=== PATIENT | male | born 1940 | race Hispanic/Latino ===

== ENCOUNTER 2017-06-15 10:42 | Emergency (ER) | payer MEDICARE ==
[~2017-06-15 10:42] MED LIST: ALLO100T PO; AMLO5TAB2 PO; ASPI-1197 PO; ATOR40TA69 PO; CARB1TAB20 PO; CHOL200013 PO; CLOP75TA32 PO; FOLI1TAB61 PO; GABA-529 PO; INSLAN SQ; ISOS60TA4 PO; LISI-613 PO; MECL-111; NEXIUM PO; NITR0.4T SL; OMEP20CA10 PO; PRAV20TA4 PO; RASA0.5T PO; TAMS0.4C32 PO; TORSEMIDE PO; VITA400C19 PO; [UNRECOGNIZED DRUG - MIXTURE] PO; [UNRECOGNIZED DRUG - OTHER]
[2017-06-15] MEDS ORDERED: LIDOCAINE HCL 1% 20 ML VIAL ONE (12:03)
== END 2017-06-15 15:10 | disposition home or self-care (01) ==
LOC: EDH 10:42
DX: S01.81XA Laceration without foreign body of other part of head, initial encounter (principal); S30.810A Abrasion of lower back and pelvis, initial encounter; S40.211A Abrasion of right shoulder, initial encounter; E11.9 Type 2 diabetes mellitus without complications; I10 Essential (primary) hypertension; G20 Parkinson's disease; Z87.891 Personal history of nicotine dependence; Z88.0 Allergy status to penicillin; X58.XXXA Exposure to other specified factors, initial encounter; Y93.89 Activity, other specified; Y92.89 Other specified places as the place of occurrence of the external cause; Y99.8 Other external cause status
CPT/HCPCS: 12052; 70450

== ENCOUNTER → 2018-07-02 | Outpatient (CLI) | payer MEDICARE ==
[~2018-07-02] MED LIST changes: -AMLO5TAB2 PO; +AMLO5TAB9 PO
== END | disposition home or self-care (01) ==
LOC: RAH 12:32
PROVIDERS: ATTEND Orthopaedic Surgery
DX: S46.011A Strain of muscle(s) and tendon(s) of the rotator cuff of right shoulder, initial encounter (principal); M19.011 Primary osteoarthritis, right shoulder; X58.XXXA Exposure to other specified factors, initial encounter; Y93.89 Activity, other specified; Y92.89 Other specified places as the place of occurrence of the external cause; Y99.8 Other external cause status
CPT/HCPCS: 73221

== ENCOUNTER → 2018-09-15 | Outpatient (CLI) | payer MEDICARE | END | disposition home or self-care (01) | LOC: SHCH 12:56 | PROVIDERS: ATTEND Internal Medicine Cardiovascular Disease | DX: I82.811 Embolism and thrombosis of superficial veins of right lower extremity (principal) | CPT/HCPCS: 93971 ==

== ENCOUNTER → 2018-10-17 | Outpatient (CLI) | payer MEDICARE ==
[~2018-10-17] VITALS: Ht 172.7 cm; Wt 84.8 kg
[~2018-10-17] MED LIST changes: +OMEP-50 PO; -OMEP20CA10 PO; +REGADENOSON 0.4 MG/5 ML PF SYG IVP SCH
== END | disposition home or self-care (01) ==
LOC: SHCH 08:43
PROVIDERS: ATTEND Internal Medicine Cardiovascular Disease
DX: I20.9 Angina pectoris, unspecified (principal); R06.00 Dyspnea, unspecified
CPT/HCPCS: 78452; 93017; 96374; A9500 ×2; J2785

== ENCOUNTER 2019-02-07 17:04 | Emergency (ER) | payer MEDICARE ==
[~2019-02-07 17:04] MED LIST changes: -REGADENOSON 0.4 MG/5 ML PF SYG IVP SCH
[2019-02-07] MEDS ORDERED: ONDANSETRON HCL 4 MG/2 ML VIAL ONE (17:18)
[2019-02-07] MEDS ORDERED: METHYLPREDNISOLONE SOD SUCC 125MG/2ML VIAL ONE (17:18)
[2019-02-07] MEDS ORDERED: FAMOTIDINE/PF 20 MG/2 ML VIAL IV ONE (17:19)
[2019-02-07 17:46] LABS: BASOPHILS % (AUTO) 0.8 % (0.0-5.0); EOSINOPHILS % (AUTO) 1.2 % (0.0-8.0); HEMATOCRIT 33.6 % (42-54); LYMPHOCYTES % (AUTO) 37.7 % (21.0-51.0); MEAN CORPUSCULAR HEMOGLOBIN 31.7 pg (27.0-33.0); MEAN CORPUSCULAR HGB CONC 33.6 g/dL (32.0-36.0); MEAN CORPUSCULAR VOLUME 94.1 fL (79-99); MONOCYTES % (AUTO) 8.2 % (3.0-13.0); NEUTROPHILS % (AUTO) 52.1 % (40.0-77.0); PLATELET COUNT (AUTO) 171 K/uL (130-400); RED BLOOD CELL COUNT(AUTO) 3.56 MIL/uL (4.50-6.20); RED CELL DISTRIBUTION WIDTH 14.3 % (11.0-15.5); WHITE BLOOD COUNT (AUTO) 9.1 K/uL (4.8-10.8)
[2019-02-07 17:55] LABS: CREATININE 1.6 mg/dL (0.5-1.5); POTASSIUM 4.4 mmol/L (3.5-5.1)
[2019-02-07 17:59] LABS: INR 1.05 (0.85-1.15); PARTIAL THROMBOPLASTIN TIME 25.5 SEC (26.3-35.5)
[2019-02-07 18:00] LABS: ALBUMIN 3.1 g/dL (3.5-5.0); BILIRUBIN,TOTAL 0.5 mg/dL (0.2-1.0); TOTAL PROTEIN, SERUM 6.6 g/dL (6.0-8.3)
[2019-02-07 18:22] LABS: APPEARANCE,URINE Clear (CLEAR); BILIRUBIN,URINE Negative (NEGATIVE); COLOR,URINE Yellow (YELLOW); GLUCOSE, URINE (UA) Negative (NEGATIVE); KETONES,URINE Negative (NEGATIVE); LEUKOCYTE ESTERASE ,URINE Negative (NEGATIVE); NITRATE,URINE Negative (NEGATIVE); OCCULT BLOOD,URINE Negative (NEGATIVE); PROTEIN,URINE POS 1+ mg/dL (NEGATIVE)
[2019-02-07 18:30] LABS: BACTERIA,URINE Rare /HPF (None Seen); RBC,URINE 0-1 /HPF (0-1); WBC,URINE 0-1 /HPF (0-1)
[2019-02-07 18:31] LABS: SQUAMOUS EPITHELIAL CELL,UR Rare /HPF (0-2)
== END 2019-02-07 20:45 | disposition home or self-care (01) ==
LOC: EDH 17:04
DX: T63.441A Toxic effect of venom of bees, accidental (unintentional), initial encounter (principal); R06.02 Shortness of breath; R13.10 Dysphagia, unspecified; E11.9 Type 2 diabetes mellitus without complications; I10 Essential (primary) hypertension; Z88.0 Allergy status to penicillin; Z91.030 Bee allergy status; Z98.890 Other specified postprocedural states; Y92.89 Other specified places as the place of occurrence of the external cause
CPT/HCPCS: 36415; 71045; 80053; 81001; 82550; 84484 ×2; 85025; 85610; 85730; 93005 ×2; 96374; 96375; 99285; J2405; J2930; J3490

== ENCOUNTER → 2019-02-24 | Outpatient (CLI) | payer MEDICARE ==
[~2019-02-24] MED LIST changes: +OMEP-298 PO; -OMEP-50 PO
== END | disposition home or self-care (01) ==
LOC: SHCH 09:28
PROVIDERS: ATTEND Internal Medicine Cardiovascular Disease
DX: I65.23 Occlusion and stenosis of bilateral carotid arteries (principal)
CPT/HCPCS: 93880

== ENCOUNTER 2020-01-19 05:55 | Day surgery (SDC) | payer MEDICARE ==
[2020-01-14 13:32] LABS: BASOPHILS % (AUTO) 0.6 % (0.0-5.0); HEMATOCRIT 36.9 % (42-54); LYMPHOCYTES % (AUTO) 24.3 % (21.0-51.0); MEAN CORPUSCULAR HEMOGLOBIN 31.5 pg (27.0-33.0); MEAN CORPUSCULAR HGB CONC 33.3 g/dL (32.0-36.0); MEAN CORPUSCULAR VOLUME 94.6 fL (79-99); MONOCYTES % (AUTO) 9.5 % (3.0-13.0); NEUTROPHILS % (AUTO) 64.5 % (40.0-77.0); PLATELET COUNT (AUTO) 202 K/uL (130-400); RED CELL DISTRIBUTION WIDTH 13.2 % (11.0-15.5); WHITE BLOOD COUNT (AUTO) 7.9 K/uL (4.8-10.8)
[2020-01-14 13:37] LABS: APPEARANCE,URINE Clear (CLEAR); BILIRUBIN,URINE Negative (NEGATIVE); COLOR,URINE Yellow (YELLOW); GLUCOSE, URINE (UA) Negative (NEGATIVE); KETONES,URINE Negative (NEGATIVE); LEUKOCYTE ESTERASE ,URINE Negative (NEGATIVE); NITRATE,URINE Negative (NEGATIVE); OCCULT BLOOD,URINE Negative (NEGATIVE); PROTEIN,URINE POS 1+ mg/dL (NEGATIVE)
[2020-01-14 13:54] LABS: BACTERIA,URINE Rare /HPF (None Seen); RBC,URINE 0-1 /HPF (0-1); SQUAMOUS EPITHELIAL CELL,UR Rare /HPF (0-2); WBC,URINE 0-1 /HPF (0-1)
[2020-01-14 13:55] LABS: CREATININE 1.5 mg/dL (0.5-1.5); POTASSIUM 4.2 mmol/L (3.5-5.1)
[2020-01-14 14:12] LABS: INR 0.98 (0.85-1.15); PARTIAL THROMBOPLASTIN TIME 25.2 SEC (26.3-35.5); PROTHROMBIN TIME 10.6 SEC (9.6-11.6)
[2020-01-15 13:33] VITALS: BP 199/65
--- NOTE | 2020-01-18 10:21 | NUR ---
LABS INFORMED Mike ZHOU OF ABNORMAL BUN AND CREATNINE. NO ORDERS RECEIVED. PROCEED WITH PLANNED PROCEDURE.
[~2020-01-19] VITALS: Ht 172.7 cm; Wt 80.6 kg
[2020-01-19] VITALS (14 sets, daily range): BP systolic 117–185; BP diastolic 42–82
[~2020-01-19 05:55] MED LIST changes: +AMLO-258 PO; -AMLO5TAB9 PO; +ASPI-1012 PO; -ASPI-1197 PO; +CALC-866 PO; -CHOL200013 PO; -CLOP75TA32 PO; -FOLI1TAB61 PO; +FOLI1TAB85 PO; -INSLAN SQ; +INSNOV SQ; +ISOS30TA6 PO; -ISOS60TA4 PO; +LANTUS SQ; -LISI-613 PO; +LISI40TA4 PO; +MAGN250T10 PO; -MECL-111; -NEXIUM PO; -NITR0.4T SL; -OMEP-298 PO; +PANT40TA54 PO; -PRAV20TA4 PO; -RASA0.5T PO; +RASA1TAB4 PO; +SODIUM BICARBONATE PO; -TORSEMIDE PO; -VITA400C19 PO; +VITAMIN E PO; -[UNRECOGNIZED DRUG - MIXTURE] PO; -[UNRECOGNIZED DRUG - OTHER]
[2020-01-19] MEDS ORDERED: HEPARIN SODIUM 1000UNIT/ML 10ML VIAL ONE (07:12)
[2020-01-19] MEDS ORDERED: NITROGLYCERIN 2 MG/VIAL VIAL IV ONE (07:12)
[2020-01-19] MEDS ORDERED: IOHEXOL 350 MG/ML 100ML INFUS..BTL IV ONE (07:12)
[2020-01-19] MEDS ORDERED: LIDOCAINE HCL 2% 20ML ONE (07:12)
[2020-01-19] MEDS ORDERED: IOHEXOL-350 50ML VIAL IV ONE (07:12)
[2020-01-19] MEDS ORDERED: SODIUM CHLORIDE 0.9% 1000ML 1,000 ML IV ONE (07:40)
[2020-01-19] MEDS ORDERED: HYDRALAZINE HCL 20 MG/ML VIAL IV PRN (08:15)
[2020-01-19] MEDS ORDERED: NITROGLYCERIN 0.4 MG SL TAB SL PRN (08:15)
[2020-01-19] MEDS ORDERED: SODIUM CHLORIDE 0.9% 1000ML 1,000 ML IV SCH (08:15)
[2020-01-19] MEDS ORDERED: GLUCAGON 1MG KIT 1 MG ML IM PRN (08:15)
[2020-01-19] MEDS ORDERED: DEXTROSE 50%-WATER 50 ML DISP.SYRIN IV PRN (08:15)
--- NOTE | 2020-01-19 09:17 | NUR ---
Pt reported chest pain in the middle of his chest, comparable to what he has been experiencing on and off over the past few weeks. Pt given 0.4 mg Nitroglycerin SL. After 5 minutes, pt reported relief.
[2020-01-19] MEDS ORDERED: INSULIN HUMULIN R 100 UNIT/ML 3ML SQ SCH (11:30)
== END 2020-01-19 14:30 | disposition home or self-care (01) ==
LOC: DAH 05:55
PROVIDERS: ATTEND Internal Medicine Cardiovascular Disease
DX: I25.110 Atherosclerotic heart disease of native coronary artery with unstable angina pectoris (principal); E11.51 Type 2 diabetes mellitus with diabetic peripheral angiopathy without gangrene; N18.30 Chronic kidney disease, stage 3 unspecified; I12.9 Hypertensive chronic kidney disease with stage 1 through stage 4 chronic kidney disease, or unspecified chronic kidney disease; E11.22 Type 2 diabetes mellitus with diabetic chronic kidney disease; K21.9 Gastro-esophageal reflux disease without esophagitis; E78.5 Hyperlipidemia, unspecified; Z95.5 Presence of coronary angioplasty implant and graft; Z98.890 Other specified postprocedural states; Z79.84 Long term (current) use of oral hypoglycemic drugs; Z79.01 Long term (current) use of anticoagulants; Z79.899 Other long term (current) drug therapy
CPT/HCPCS: 36415; 71045; 80048; 81001; 82948 ×2; 85025; 85610; 85730; 93005; 93460; A4215; A4216; A4221; A4222; A4223 ×2; A4606; A4663; C1894 ×3; J1644; J3490 ×2; J7030; Q9965; Q9967

== ENCOUNTER 2020-02-13 19:33 | Inpatient (IN) | payer MEDICARE ==
[~2020-02-13] VITALS: Ht 172.7 cm; Wt 84.5 kg
[2020-02-13] MEDS ORDERED: ASPIRIN 325 MG TABLET ONE (19:43)
[2020-02-13] MEDS ORDERED: ONDANSETRON HCL 4 MG/2 ML VIAL ONE (19:43)
[2020-02-13] MEDS ORDERED: MORPHINE SULFATE 4 MG/1ML SYG ONE (19:44)
[2020-02-13 19:45] LABS: BASOPHILS % (AUTO) 0.6 % (0.0-5.0); EOSINOPHILS % (AUTO) 1.2 % (0.0-8.0); HEMATOCRIT 36.9 % (42-54); LYMPHOCYTES % (AUTO) 33.1 % (21.0-51.0); MEAN CORPUSCULAR HEMOGLOBIN 31.1 pg (27.0-33.0); MEAN CORPUSCULAR HGB CONC 33.1 g/dL (32.0-36.0); MEAN CORPUSCULAR VOLUME 94.1 fL (79-99); MONOCYTES % (AUTO) 9.8 % (3.0-13.0); NEUTROPHILS % (AUTO) 55.2 % (40.0-77.0); PLATELET COUNT (AUTO) 176 K/uL (130-400); RED BLOOD CELL COUNT(AUTO) 3.92 MIL/uL (4.50-6.20); RED CELL DISTRIBUTION WIDTH 13.3 % (11.0-15.5); WHITE BLOOD COUNT (AUTO) 8.3 K/uL (4.8-10.8)
[2020-02-13 19:54] LABS: CREATININE 1.8 mg/dL (0.5-1.5); POTASSIUM 4.4 mmol/L (3.5-5.1)
[2020-02-13 19:56] LABS: INR 0.97 (0.85-1.15); PARTIAL THROMBOPLASTIN TIME 24.5 SEC (26.3-35.5); PROTHROMBIN TIME 10.5 SEC (9.6-11.6)
[2020-02-13 19:58] LABS: ALBUMIN 3.5 g/dL (3.5-5.0); BILIRUBIN,TOTAL 0.3 mg/dL (0.2-1.0); TOTAL PROTEIN, SERUM 7.4 g/dL (6.0-8.3)
[2020-02-13] MEDS ORDERED: NITROGLYCERIN 1GM/1 INCH PACKET TD ONE (21:44)
[2020-02-13] MEDS ORDERED: HYDRALAZINE HCL 20 MG/ML VIAL ONE (22:10)
[2020-02-13 22:30] VITALS: BP 178/57
[2020-02-13] MEDS ORDERED: HYDRALAZINE HCL 20 MG/ML VIAL IV PRN (22:30)
[2020-02-13] MEDS ORDERED: MORPHINE SULFATE 2 MG/ML 1ML SYG IVP PRN (22:30)
[2020-02-13] MEDS ORDERED: AMLO-257 PO (23:08)
[2020-02-13] MEDS ORDERED: INSU100C6 SQ (23:08)
[2020-02-13] MEDS ORDERED: NITR0.4T50 SL (23:08)
[2020-02-13] MEDS ORDERED: MAGOX PO (23:09)
[2020-02-13] MEDS ORDERED: ISOS40TA16 PO (23:09)
[2020-02-13] MEDS ORDERED: MECL-160 PO (23:09)
[2020-02-13] MEDS ORDERED: VITA-164 PO (23:09)
[2020-02-13] MEDS ORDERED: LISI-613 PO (23:09)
[2020-02-13] MEDS ORDERED: DiphenhydrAMINE HCL 50 MG/ML VIAL IV PRN (23:15)
[2020-02-13] MEDS ORDERED: ONDANSETRON HCL 4 MG/2 ML VIAL IV PRN (23:15)
[2020-02-13] MEDS ORDERED: MAG HYDROX/AL HYDROX/SIMETH ES 30 ML SUSP UDCUP PO PRN (23:15)
[2020-02-13] MEDS ORDERED: MECLIZINE HCL 25 MG TABLET PO PRN (23:15)
[2020-02-14 04:00] VITALS: BP 161/47
[2020-02-14] MEDS: INSULIN HUMULIN R 100 UNIT/ML 3ML SQ SCH ×4 (07:30→21:00)
[2020-02-14 08:00] VITALS: BP 162/65
[2020-02-14] MEDS ORDERED: LISINOPRIL 20 MG TABLET PO SCH (09:00)
[2020-02-14] MEDS: RASAGILINE 1 MG PO SCH (09:00)
[2020-02-14] MEDS ORDERED: ASPIRIN 325 MG TABLET PO SCH (09:00)
[2020-02-14] MEDS ORDERED: VITAMIN E 400 UNIT CAPSULE PO SCH (09:00)
[2020-02-14] MEDS ORDERED: MAGNESIUM OXIDE 400 MG TABLET PO SCH (09:00)
[2020-02-14] MEDS ORDERED: AMLODIPINE BESYLATE 5 MG TAB PO SCH (09:00)
[2020-02-14] MEDS: SODIUM BICARBONATE PO SCH ×2 (09:00→21:00)
[2020-02-14] MEDS: **HM** VIT D3 125MCG PO SCH (09:00)
[2020-02-14] MEDS ORDERED: ISOSORBIDE DINITRATE 120 MG PO SCH (09:00)
[2020-02-14] MEDS: NITROGLYCERIN 0.4 MG SL TAB SL PRN ×6 (09:54→18:39)
[2020-02-14] MEDS: GABAPENTIN 100 MG CAPSULE PO SCH ×2 (09:54→21:37)
[2020-02-14] MEDS: FAMOTIDINE 20MG TAB 20 MG TAB PO SCH ×2 (09:55→21:37)
[2020-02-14] MEDS: ALLOPURINOL 100 MG TABLET PO SCH (09:55)
[2020-02-14] MEDS: TAMSULOSIN HCL 0.4 MG CAP.ER.24H PO SCH ×2 (09:55→21:37)
[2020-02-14] MEDS: CARBIDOPA-LEVODOPA 25-100 TAB PO SCH ×4 (09:55→21:37)
[2020-02-14] MEDS ORDERED: CLONIDINE HCL 0.1 MG TABLET PO PRN (12:15)
[2020-02-14 12:21] VITALS: BP 156/53
[2020-02-14 12:35] VITALS: BP 137/60
[2020-02-14 16:00] VITALS: BP 160/64
[2020-02-14] MEDS ORDERED: FUROSEMIDE 10 MG/ML 2ML VIAL IV SCH (16:00)
[2020-02-14] MEDS ORDERED: FUROSEMIDE 10 MG/ML 2ML VIAL ONE (16:20)
[2020-02-14 17:21] LABS: BASOPHILS % (AUTO) 0.4 % (0.0-5.0); EOSINOPHILS % (AUTO) 1.3 % (0.0-8.0); HEMATOCRIT 41.4 % (42-54); LYMPHOCYTES % (AUTO) 24.9 % (21.0-51.0); MEAN CORPUSCULAR HEMOGLOBIN 31.2 pg (27.0-33.0); MEAN CORPUSCULAR HGB CONC 33.1 g/dL (32.0-36.0); MEAN CORPUSCULAR VOLUME 94.3 fL (79-99); MONOCYTES % (AUTO) 10.9 % (3.0-13.0); NEUTROPHILS % (AUTO) 62.4 % (40.0-77.0); PLATELET COUNT (AUTO) 186 K/uL (130-400); RED BLOOD CELL COUNT(AUTO) 4.39 MIL/uL (4.50-6.20); RED CELL DISTRIBUTION WIDTH 13.3 % (11.0-15.5); WHITE BLOOD COUNT (AUTO) 7.8 K/uL (4.8-10.8)
[2020-02-14 17:31] LABS: HEMOGLOBIN A1C 7.9 % (4.0-6.0)
[2020-02-14 17:33] LABS: INR 0.98 (0.85-1.15); PARTIAL THROMBOPLASTIN TIME 25.1 SEC (26.3-35.5); PROTHROMBIN TIME 10.6 SEC (9.6-11.6)
[2020-02-14 17:43] LABS: ALANINE AMINOTRANSFERASE 14 U/L (12-78); ALBUMIN 3.5 g/dL (3.5-5.0); ASPARTATE AMINOTRANSFERASE 28 U/L (10-37); BILIRUBIN,TOTAL 0.8 mg/dL (0.2-1.0); CARBON DIOXIDE 30 mmol/L (21-32); CHLORIDE 103 mmol/L (101-111); CREATINE KINASE, TOTAL 165 U/L (21-232); CREATININE 1.5 mg/dL (0.5-1.5); GLOMERULAR FILTR. RATE CALC 48 mL/min (>60); GLUCOSE,RANDOM 169 mg/dL (70-105); MYOGLOBIN 129 ng/mL (10-92); POTASSIUM 4.8 mmol/L (3.5-5.1); SODIUM SERUM 139 mmol/L (136-145); TOTAL PROTEIN, SERUM 7.6 g/dL (6.0-8.3); TROPONIN I < 0.04 ng/mL (0.00-0.06); UREA NITROGEN, BLOOD 27 mg/dL (7-18)
[2020-02-14 20:00] VITALS: BP 185/61
[2020-02-14] MEDS: ATORVASTATIN CALCIUM 40 MG TABLET PO SCH (21:37)
[2020-02-14] MEDS: Vitamin B Complex/Vit C/Folic Acid PO SCH (21:37)
[2020-02-15] VITALS (44 sets, daily range): BP systolic 62–201; BP diastolic 26–201
[2020-02-15 04:49] LABS: BASOPHILS % (AUTO) 0.5 % (0.0-5.0); EOSINOPHILS % (AUTO) 1.1 % (0.0-8.0); HEMATOCRIT 35.6 % (42-54); LYMPHOCYTES % (AUTO) 17.4 % (21.0-51.0); MEAN CORPUSCULAR HEMOGLOBIN 30.6 pg (27.0-33.0); MEAN CORPUSCULAR HGB CONC 32.6 g/dL (32.0-36.0); MEAN CORPUSCULAR VOLUME 93.9 fL (79-99); NEUTROPHILS % (AUTO) 71.9 % (40.0-77.0); PLATELET COUNT (AUTO) 173 K/uL (130-400); RED BLOOD CELL COUNT(AUTO) 3.79 MIL/uL (4.50-6.20); RED CELL DISTRIBUTION WIDTH 13.3 % (11.0-15.5); WHITE BLOOD COUNT (AUTO) 8.8 K/uL (4.8-10.8)
[2020-02-15 05:19] LABS: ALBUMIN 3.1 g/dL (3.5-5.0); BILIRUBIN,TOTAL 0.6 mg/dL (0.2-1.0); CREATININE 1.9 mg/dL (0.5-1.5); PHOSPHORUS 4.6 mg/dL (2.5-4.9); POTASSIUM 4.9 mmol/L (3.5-5.1); TOTAL PROTEIN, SERUM 6.5 g/dL (6.0-8.3); URIC ACID 4.9 mg/dL (2.6-7.2)
[2020-02-15 05:24] LABS: APPEARANCE,URINE Clear (CLEAR); BILIRUBIN,URINE Negative (NEGATIVE); COLOR,URINE Dark Yellow (YELLOW); GLUCOSE, URINE (UA) Negative (NEGATIVE); KETONES,URINE Trace mg/dL (NEGATIVE); LEUKOCYTE ESTERASE ,URINE Negative (NEGATIVE); NITRATE,URINE Negative (NEGATIVE); OCCULT BLOOD,URINE Negative (NEGATIVE); PROTEIN,URINE POS 1+ mg/dL (NEGATIVE)
[2020-02-15] MEDS: INSULIN HUMULIN R 100 UNIT/ML 3ML SQ SCH (07:21)
[2020-02-15] MEDS ORDERED: NOREPINEPHRINE BITARTRATE 8 MG in DEXTROSE 5%-WATER 250 ML IV PRN (08:00)
[2020-02-15] MEDS ORDERED: NITROGLYCERIN 50 MG/D5% WATER 1 BOT ONE (08:00)
[2020-02-15] MEDS ORDERED: EPINEPHRINE 10 MG in SODIUM CHLORIDE 0.9% 240 ML IV PRN (08:00)
[2020-02-15] MEDS ORDERED: AMINOCAPROIC ACID 15,000 MG in SODIUM CHLORIDE 0.9% 500ML 420 ML IV PRN (08:00)
[2020-02-15] MEDS ORDERED: OCTYL 2-CYANOACRYLATE 1 EACH TP ONE (08:03)
[2020-02-15] MEDS ORDERED: PAPAVERINE HCL 30 MG/ML 2ML VIAL ONE (08:03)
[2020-02-15] MEDS ORDERED: CEFAZOLIN SODIUM 1 GM VIAL ONE (08:03)
[2020-02-15] MEDS ORDERED: ESMOLOL HCL 10 MG/ML 10 ML VIAL ONE ×2 (08:15→10:53)
[2020-02-15] MEDS ORDERED: HEPARIN SODIUM 1000UNIT/ML 10ML VIAL ONE (08:15)
[2020-02-15] MEDS ORDERED: PROTAMINE SULFATE 10 MG/ML 25ML VIAL IV ONE (08:15)
[2020-02-15] MEDS ORDERED: LIDOCAINE PF 2% 5ML ABBOJECT ONE ×2 (08:15→08:17)
[2020-02-15] MEDS ORDERED: SODIUM BICARB 50MEQ 50ML VIAL 100 ML ONE (08:16)
[2020-02-15] MEDS ORDERED: FENTANYL CITRATE PF 50 MCG/1 ML 20ML VIAL IJ ONE (08:16)
[2020-02-15] MEDS ORDERED: PROPOFOL 10 MG/ML 20ML VIAL IV ONE (08:16)
[2020-02-15] MEDS ORDERED: MIDAZOLAM HCL 1 MG/ML 2ML VIAL ONE (08:16)
[2020-02-15] MEDS ORDERED: ROCURONIUM 10MG/1ML SYR 10 MG/ML ML ONE ×2 (08:16→11:47)
[2020-02-15] MEDS ORDERED: AMINOCAPROIC ACID 250 MG/ML 20 ML VIAL ONE (08:16)
[2020-02-15] MEDS ORDERED: NOREPINEPHRINE BITARTRATE 1 MG/1 ML ML IV ONE (08:16)
[2020-02-15] MEDS ORDERED: EPINEPHRINE 1 MG/ML AMPULE ONE (08:16)
[2020-02-15] MEDS: CLINDAMYCIN 900 MG/D5% WATER 50 ML IV SCH ×3 (08:17→20:35)
[2020-02-15] MEDS ORDERED: SUCCINYLCHOLINE CHLORIDE 20 MG/ML 10 ML VIAL ONE (08:17)
[2020-02-15] MEDS ORDERED: ETOMIDATE 2 MG/ML 10 ML VIAL ONE (08:17)
[2020-02-15] MEDS ORDERED: AMIODARONE HCL 50 MG/ML 3 ML VIAL ONE (08:21)
[2020-02-15] MEDS ORDERED: SODIUM CHLORIDE 0.9% 1000ML 1,000 ML IV ONE (08:44)
[2020-02-15] MEDS: RASAGILINE 1 MG PO SCH (09:00)
[2020-02-15] MEDS: CARBIDOPA-LEVODOPA 25-100 TAB PO SCH ×5 (09:00→23:13)
[2020-02-15] MEDS: **HM** VIT D3 125MCG PO SCH (09:00)
[2020-02-15] MEDS: ALLOPURINOL 100 MG TABLET PO SCH (09:00)
[2020-02-15] MEDS ORDERED: CLINDAMYCIN 900 MG/D5% WATER 50 ML IV SCH (09:00)
[2020-02-15] MEDS: TAMSULOSIN HCL 0.4 MG CAP.ER.24H PO SCH ×2 (09:00→20:12)
[2020-02-15 11:04] LABS: ABG BASE EXCESS -3.6 mmol/L (-2.0-3.0); ABG OXYGEN SATURATION 98.7 % (95.0-99.0); ABG PCO2 42 mmHg (35-48)
[2020-02-15] MEDS ORDERED: CLINDAMYCIN PHOSPHATE 150 MG/ML 6ML VIAL ONE (11:08)
[2020-02-15] MEDS ORDERED: VASOPRESSIN 20 UNITS/ML 1ML VIAL ONE (11:44)
[2020-02-15 11:52] LABS: ABG OXYGEN SATURATION 98.7 % (95.0-99.0); ABG PCO2 45 mmHg (35-48)
[2020-02-15] MEDS ORDERED: SODIUM BICARB 50MEQ 50ML VIAL 200 ML ONE (11:52)
[2020-02-15 12:21] LABS: ABG BASE EXCESS 3.5 mmol/L (-2.0-3.0); ABG HCO3 28.1 mmol/L (21.0-28.0); ABG OXYGEN SATURATION 98.5 % (95.0-99.0); ABG PCO2 43 mmHg (35-48)
[2020-02-15] MEDS ORDERED: SODIUM CHLORIDE 0.9% 1000ML 1,000 ML IV SCH (12:45)
[2020-02-15] MEDS ORDERED: NOREPINEPHRINE 4MG/NS 250ML 250 ML IV PRN (12:45)
[2020-02-15] MEDS ORDERED: NITROGLYCERIN 50 MG/D5% WATER 250 BOT IV SCH (12:45)
[2020-02-15] MEDS ORDERED: EPINEPHRINE 2 MG in DEXTROSE 5%-WATER 250 ML IV PRN (12:45)
[2020-02-15] MEDS ORDERED: ACETAMINOPHEN 325 MG TAB PO PRN (12:45)
[2020-02-15] MEDS ORDERED: ACETAMINOPHEN 650 MG SUPPOSITORY RC PRN (12:45)
[2020-02-15] MEDS ORDERED: PROPOFOL 1000 MG/100 ML 100 ML IV PRN (12:45)
[2020-02-15] MEDS ORDERED: MAGNESIUM 2GM PREMIX 50ML 50 ML IV PRN (12:45)
[2020-02-15] MEDS ORDERED: INSULIN REGULAR, HUMAN 3ML 100 UNIT in SODIUM CHLORIDE 0.9% 99 ML IV SCH ×2 (12:45)
[2020-02-15] MEDS ORDERED: SODIUM CHLORIDE 0.9% 10 ML VIAL IVP PRN (12:45)
[2020-02-15] MEDS ORDERED: CALCIUM GLUCONATE 1 GM in SODIUM CHLORIDE 0.9% 50 ML IV PRN (12:45)
[2020-02-15] MEDS ORDERED: POTASSIUM PHOS 15 mMOL+NS250ML 250 ML IV PRN (12:45)
[2020-02-15] MEDS ORDERED: ONDANSETRON HCL 4 MG/2 ML VIAL IV PRN (12:45)
[2020-02-15] MEDS ORDERED: AMINOCAPROIC ACID 15,000 MG in SODIUM CHLORIDE 0.9% 250 ML IV SCH (12:45)
[2020-02-15] MEDS ORDERED: GLUCAGON 1MG KIT 1 MG ML IM PRN (12:45)
[2020-02-15] MEDS ORDERED: DEXTROSE 50%-WATER 50 ML DISP.SYRIN IV PRN (12:45)
[2020-02-15] MEDS ORDERED: ALBUMIN (HUMAN) 5% 250 ML IV PRN (12:45)
[2020-02-15] MEDS ORDERED: ALBUMIN (HUMAN) 5% 500 ML IV ONE (13:11)
[2020-02-15 13:34] LABS: ABG BASE EXCESS -3.3 mmol/L (-2.0-3.0); ABG HCO3 22.1 mmol/L (21.0-28.0); ABG OXYGEN SATURATION 98.5 % (95.0-99.0); ABG PCO2 41 mmHg (35-48)
[2020-02-15] MEDS ORDERED: POTASSIUM CHLORIDE 20MEQ/100ML 200 ML IV ONE (13:36)
[2020-02-15] MEDS ORDERED: INSULIN HUMULIN R 100 UNIT/ML 3ML ONE (13:38)
[2020-02-15 14:26] LABS: HEMATOCRIT 27.4 % (42-54); MEAN CORPUSCULAR HGB CONC 32.1 g/dL (32.0-36.0); MEAN CORPUSCULAR VOLUME 96.5 fL (79-99); RED BLOOD CELL COUNT(AUTO) 2.84 MIL/uL (4.50-6.20); RED CELL DISTRIBUTION WIDTH 13.3 % (11.0-15.5); WHITE BLOOD COUNT (AUTO) 19.4 K/uL (4.8-10.8)
[2020-02-15 14:28] LABS: ABG BASE EXCESS -4.8 mmol/L (-2.0-3.0); ABG HCO3 21.7 mmol/L (21.0-28.0); ABG OXYGEN SATURATION 97.7 % (95.0-99.0); ABG PCO2 46 mmHg (35-48)
[2020-02-15 14:40] LABS: MAGNESIUM 1.7 mg/dL (1.80-2.40); PHOSPHORUS 4.4 mg/dL (2.5-4.9); POTASSIUM 3.7 mmol/L (3.5-5.1)
[2020-02-15 14:41] LABS: INR 1.17 (0.85-1.15); PARTIAL THROMBOPLASTIN TIME 21.2 SEC (26.3-35.5); PROTHROMBIN TIME 12.6 SEC (9.6-11.6)
[2020-02-15 15:07] LABS: ABG OXYGEN SATURATION 84.9 % (95.0-99.0); BASE EXCESS,VENOUS BLOOD GAS 1.6 (-2.0-3.0); HCO3,VENOUS BLOOD GAS 28.8 (21.0-28.0); PCO2,VENOUS BLOOD GAS 56 (35-48); PH,VENOUS BLOOD GAS 7.332 (7.350-7.450)
[2020-02-15] MEDS: SODIUM BICARB 50MEQ 50ML VIAL IV PRN ×3 (15:22→17:49)
[2020-02-15] MEDS: POTASSIUM CHLORIDE 20MEQ/100ML 100 ML IV PRN ×2 (15:28→17:48)
[2020-02-15] MEDS: MORPHINE SULFATE 2 MG/ML 1ML SYG IV PRN ×2 (15:46→17:49)
[2020-02-15 15:51] LABS: ABG BASE EXCESS -1.8 mmol/L (-2.0-3.0); ABG HCO3 23.9 mmol/L (21.0-28.0); ABG OXYGEN SATURATION 97.8 % (95.0-99.0); ABG PCO2 45 mmHg (35-48)
[2020-02-15] MEDS: TRAMADOL HCL 50 MG TABLET PO PRN (17:11)
[2020-02-15 17:33] LABS: ABG BASE EXCESS -1.7 mmol/L (-2.0-3.0); ABG HCO3 24.5 mmol/L (21.0-28.0); ABG OXYGEN SATURATION 98.2 % (95.0-99.0); ABG PCO2 49 mmHg (35-48)
[2020-02-15 18:35] LABS: ABG HCO3 30.1 mmol/L (21.0-28.0); ABG OXYGEN SATURATION 97.8 % (95.0-99.0); ABG PCO2 47 mmHg (35-48)
[2020-02-15] MEDS: SODIUM CHLORIDE 0.9% 500ML 500 ML IV SCH (19:10)
[2020-02-15] MEDS ORDERED: CLINDAMYCIN 900 MG/D5% WATER 50 ML IV ONE (19:13)
[2020-02-15] MEDS ORDERED: FAMOTIDINE/PF 20 MG/2 ML VIAL IV ONE (19:15)
[2020-02-15] MEDS: ATORVASTATIN CALCIUM 40 MG TABLET PO SCH (19:26)
[2020-02-15] MEDS: ACETAMINOPHEN 325 MG TAB PO PRN (19:27)
[2020-02-15 19:40] LABS: ABG BASE EXCESS 2.6 mmol/L (-2.0-3.0); ABG OXYGEN SATURATION 97.6 % (95.0-99.0); ABG PCO2 47 mmHg (35-48)
[2020-02-15] MEDS: Vitamin B Complex/Vit C/Folic Acid PO SCH (20:06)
[2020-02-15] MEDS: MORPHINE SULFATE 2 MG/ML 1ML SYG IVP PRN (20:08)
[2020-02-15] MEDS ORDERED: PHARMACY COMMUNICATION MISC SCH ×2 (20:45)
[2020-02-15] MEDS ORDERED: FAMOTIDINE/PF 20 MG/2 ML VIAL IV SCH (21:00)
[2020-02-15 21:06] LABS: MAGNESIUM 2.3 mg/dL (1.80-2.40); POTASSIUM 4.2 mmol/L (3.5-5.1)
[2020-02-15 21:33] LABS: ABG BASE EXCESS 10.2 mmol/L (-2.0-3.0); ABG HCO3 35.4 mmol/L (21.0-28.0); ABG OXYGEN SATURATION 97.5 % (95.0-99.0); ABG PCO2 52 mmHg (35-48)
[2020-02-15] MEDS ORDERED: ALBUMIN (HUMAN) 5% 250 ML IV ONE (21:42)
[2020-02-15 22:39] LABS: ABG BASE EXCESS 5.1 mmol/L (-2.0-3.0); ABG HCO3 28.5 mmol/L (21.0-28.0); ABG OXYGEN SATURATION 97.6 % (95.0-99.0); ABG PCO2 37 mmHg (35-48)
[2020-02-16] VITALS (44 sets, daily range): BP systolic 105–190; BP diastolic 25–71
[2020-02-16] MEDS: MORPHINE SULFATE 2 MG/ML 1ML SYG IVP PRN (01:30)
[2020-02-16 04:18] LABS: ABG BASE EXCESS 5.1 mmol/L (-2.0-3.0); ABG HCO3 26.7 mmol/L (21.0-28.0); ABG OXYGEN SATURATION 97.2 % (95.0-99.0); ABG PCO2 29 mmHg (35-48)
[2020-02-16 04:30] LABS: HEMATOCRIT 25.4 % (42-54); MEAN CORPUSCULAR HEMOGLOBIN 31.3 pg (27.0-33.0); MEAN CORPUSCULAR HGB CONC 33.9 g/dL (32.0-36.0); MEAN CORPUSCULAR VOLUME 92.4 fL (79-99); RED BLOOD CELL COUNT(AUTO) 2.75 MIL/uL (4.50-6.20); RED CELL DISTRIBUTION WIDTH 13.8 % (11.0-15.5); WHITE BLOOD COUNT (AUTO) 9.9 K/uL (4.8-10.8)
[2020-02-16 04:42] LABS: MAGNESIUM 2.1 mg/dL (1.80-2.40); PHOSPHORUS 2.2 mg/dL (2.5-4.9); POTASSIUM 4.2 mmol/L (3.5-5.1)
[2020-02-16 04:43] LABS: INR 1.06 (0.85-1.15); PARTIAL THROMBOPLASTIN TIME 25.2 SEC (26.3-35.5); PROTHROMBIN TIME 11.4 SEC (9.6-11.6)
[2020-02-16] MEDS: CLINDAMYCIN 900 MG/D5% WATER 50 ML IV SCH ×2 (04:45→12:34)
[2020-02-16] MEDS ORDERED: HYDRALAZINE HCL 20 MG/ML VIAL IM PRN (08:15)
[2020-02-16 08:41] LABS: ABG HCO3 28.5 mmol/L (21.0-28.0); ABG OXYGEN SATURATION 97.8 % (95.0-99.0); ABG PCO2 33 mmHg (35-48)
[2020-02-16] MEDS: TAMSULOSIN HCL 0.4 MG CAP.ER.24H PO SCH ×2 (09:52→20:34)
[2020-02-16] MEDS: ALLOPURINOL 100 MG TABLET PO SCH (09:52)
[2020-02-16] MEDS: METOPROLOL TARTRATE 25 MG TAB PO SCH ×2 (09:52→20:18)
[2020-02-16] MEDS: ASPIRIN 325MG EC TAB 325 MG TABLET.DR PO SCH (09:53)
[2020-02-16] MEDS: RASAGILINE 1 MG PO SCH (09:54)
[2020-02-16] MEDS: **HM** VIT D3 125MCG PO SCH (09:55)
[2020-02-16] MEDS: CARBIDOPA-LEVODOPA 25-100 TAB PO SCH ×4 (10:05→20:34)
[2020-02-16] MEDS: TRAMADOL HCL 50 MG TABLET PO PRN ×2 (17:41→23:51)
[2020-02-16] MEDS ORDERED: PHARMACY COMMUNICATION MISC SCH (19:30)
[2020-02-16] MEDS: Vitamin B Complex/Vit C/Folic Acid PO SCH (20:34)
[2020-02-16] MEDS: ATORVASTATIN CALCIUM 40 MG TABLET PO SCH (20:34)
[2020-02-16] MEDS: ACETAMINOPHEN 325 MG TAB PO PRN (20:35)
[2020-02-16] MEDS: SODIUM CHLORIDE 0.9% 500ML 500 ML IV SCH (22:36)
[2020-02-17] VITALS (22 sets, daily range): BP systolic 113–165; BP diastolic 37–101
[2020-02-17] MEDS: ACETAMINOPHEN 325 MG TAB PO PRN (04:27)
[2020-02-17 04:43] LABS: BASOPHILS % (AUTO) 0.2 % (0.0-5.0); EOSINOPHILS % (AUTO) 0.1 % (0.0-8.0); HEMATOCRIT 28.1 % (42-54); LYMPHOCYTES % (AUTO) 8.4 % (21.0-51.0); MEAN CORPUSCULAR HEMOGLOBIN 31.4 pg (27.0-33.0); MEAN CORPUSCULAR HGB CONC 32.4 g/dL (32.0-36.0); MEAN CORPUSCULAR VOLUME 96.9 fL (79-99); MONOCYTES % (AUTO) 7.8 % (3.0-13.0); NEUTROPHILS % (AUTO) 82.8 % (40.0-77.0); PLATELET COUNT (AUTO) 103 K/uL (130-400); RED CELL DISTRIBUTION WIDTH 14.2 % (11.0-15.5); WHITE BLOOD COUNT (AUTO) 15.2 K/uL (4.8-10.8)
[2020-02-17 04:54] LABS: CREATININE 2.2 mg/dL (0.5-1.5); PHOSPHORUS 5.3 mg/dL (2.5-4.9); POTASSIUM 4.4 mmol/L (3.5-5.1)
[2020-02-17] MEDS: CARBIDOPA-LEVODOPA 25-100 TAB PO SCH ×4 (08:41→21:30)
[2020-02-17] MEDS: METOPROLOL TARTRATE 25 MG TAB PO SCH ×2 (08:42→21:30)
[2020-02-17] MEDS: TAMSULOSIN HCL 0.4 MG CAP.ER.24H PO SCH ×2 (08:42→21:30)
[2020-02-17] MEDS: FAMOTIDINE 20MG TAB 20 MG TAB PO SCH (08:42)
[2020-02-17] MEDS: FUROSEMIDE 20 MG TABLET PO SCH ×2 (08:42→16:12)
[2020-02-17] MEDS: ALLOPURINOL 100 MG TABLET PO SCH (08:43)
[2020-02-17] MEDS: ASPIRIN 325MG EC TAB 325 MG TABLET.DR PO SCH (08:43)
[2020-02-17] MEDS: ENOXAPARIN SODIUM 30 MG/0.3 ML SQ SCH (08:44)
[2020-02-17] MEDS: TRAMADOL HCL 50 MG TABLET PO PRN (08:46)
[2020-02-17] MEDS: RASAGILINE 1 MG PO SCH (12:22)
[2020-02-17] MEDS: **HM** VIT D3 125MCG PO SCH (12:23)
[2020-02-17] MEDS: ATORVASTATIN CALCIUM 40 MG TABLET PO SCH (21:30)
[2020-02-17] MEDS: Vitamin B Complex/Vit C/Folic Acid PO SCH (21:30)
[2020-02-18] VITALS (7 sets, daily range): BP systolic 123–155; BP diastolic 57–76
[2020-02-18 06:11] LABS: BASOPHILS % (AUTO) 0.2 % (0.0-5.0); EOSINOPHILS % (AUTO) 0.1 % (0.0-8.0); HEMATOCRIT 28.1 % (42-54); LYMPHOCYTES % (AUTO) 10.9 % (21.0-51.0); MEAN CORPUSCULAR HEMOGLOBIN 31.1 pg (27.0-33.0); MEAN CORPUSCULAR HGB CONC 32.7 g/dL (32.0-36.0); MEAN CORPUSCULAR VOLUME 94.9 fL (79-99); MONOCYTES % (AUTO) 6.8 % (3.0-13.0); NEUTROPHILS % (AUTO) 81.6 % (40.0-77.0); PLATELET COUNT (AUTO) 110 K/uL (130-400); RED BLOOD CELL COUNT(AUTO) 2.96 MIL/uL (4.50-6.20); RED CELL DISTRIBUTION WIDTH 13.5 % (11.0-15.5); WHITE BLOOD COUNT (AUTO) 13.7 K/uL (4.8-10.8)
[2020-02-18 06:18] LABS: CREATININE 2.3 mg/dL (0.5-1.5); POTASSIUM 4.8 mmol/L (3.5-5.1)
[2020-02-18] MEDS: RASAGILINE 1 MG PO SCH (09:00)
[2020-02-18] MEDS: **HM** VIT D3 125MCG PO SCH (09:00)
[2020-02-18] MEDS: ASPIRIN 325MG EC TAB 325 MG TABLET.DR PO SCH (09:36)
[2020-02-18] MEDS: TAMSULOSIN HCL 0.4 MG CAP.ER.24H PO SCH ×2 (09:36→21:38)
[2020-02-18] MEDS: ALLOPURINOL 100 MG TABLET PO SCH (09:37)
[2020-02-18] MEDS: AMLODIPINE BESYLATE 5 MG TAB PO SCH (09:37)
[2020-02-18] MEDS: CARBIDOPA-LEVODOPA 25-100 TAB PO SCH ×4 (09:37→21:38)
[2020-02-18] MEDS: FAMOTIDINE 20MG TAB 20 MG TAB PO SCH (09:37)
[2020-02-18] MEDS: FUROSEMIDE 20 MG TABLET PO SCH ×2 (09:37→16:59)
[2020-02-18] MEDS: METOPROLOL TARTRATE 25 MG TAB PO SCH ×2 (09:37→21:38)
[2020-02-18] MEDS: ENOXAPARIN SODIUM 30 MG/0.3 ML SQ SCH (09:38)
[2020-02-18] MEDS: LACTULOSE 20 GM/30 ML UDCUP PO PRN (15:35)
[2020-02-18] MEDS ORDERED: AMIODARONE HCL 360 MG in DEXTROSE 5%-WATER 200 ML IV SCH (19:00)
[2020-02-18] MEDS ORDERED: AMIODARONE HCL 900 MG in DEXTROSE 5%-WATER 500 ML IV SCH (19:00)
[2020-02-18] MEDS ORDERED: AMIODARONE HCL 150 MG in DEXTROSE 5%-WATER 100 ML IV SCH (19:00)
[2020-02-18] MEDS: ATORVASTATIN CALCIUM 40 MG TABLET PO SCH (21:38)
[2020-02-18] MEDS: Vitamin B Complex/Vit C/Folic Acid PO SCH (21:38)
[2020-02-19] VITALS (7 sets, daily range): BP systolic 106–134; BP diastolic 43–53
[2020-02-19] MEDS ORDERED: AMIODARONE HCL 450 MG in DEXTROSE 5%-WATER 250 ML IV SCH (01:30)
[2020-02-19 05:51] LABS: BASOPHILS % (AUTO) 0.3 % (0.0-5.0); EOSINOPHILS % (AUTO) 0.7 % (0.0-8.0); HEMATOCRIT 26.6 % (42-54); LYMPHOCYTES % (AUTO) 13.3 % (21.0-51.0); MEAN CORPUSCULAR HEMOGLOBIN 31.2 pg (27.0-33.0); MEAN CORPUSCULAR HGB CONC 33.5 g/dL (32.0-36.0); MEAN CORPUSCULAR VOLUME 93.3 fL (79-99); NEUTROPHILS % (AUTO) 77.2 % (40.0-77.0); PLATELET COUNT (AUTO) 142 K/uL (130-400); RED BLOOD CELL COUNT(AUTO) 2.85 MIL/uL (4.50-6.20); RED CELL DISTRIBUTION WIDTH 13.4 % (11.0-15.5); WHITE BLOOD COUNT (AUTO) 11.8 K/uL (4.8-10.8)
[2020-02-19 06:01] LABS: CREATININE 2.1 mg/dL (0.5-1.5); PHOSPHORUS 3.6 mg/dL (2.5-4.9); POTASSIUM 4.3 mmol/L (3.5-5.1)
[2020-02-19] MEDS: METOPROLOL TARTRATE 25 MG TAB PO SCH (07:30)
[2020-02-19] MEDS: TAMSULOSIN HCL 0.4 MG CAP.ER.24H PO SCH ×2 (08:59→20:44)
[2020-02-19] MEDS: ASPIRIN 325MG EC TAB 325 MG TABLET.DR PO SCH (08:59)
[2020-02-19] MEDS: FAMOTIDINE 20MG TAB 20 MG TAB PO SCH (08:59)
[2020-02-19] MEDS: CARBIDOPA-LEVODOPA 25-100 TAB PO SCH ×4 (08:59→20:44)
[2020-02-19] MEDS: FUROSEMIDE 20 MG TABLET PO SCH ×2 (08:59→16:15)
[2020-02-19] MEDS: ALLOPURINOL 100 MG TABLET PO SCH (08:59)
[2020-02-19] MEDS: AMLODIPINE BESYLATE 5 MG TAB PO SCH (08:59)
[2020-02-19] MEDS: **HM** VIT D3 125MCG PO SCH (09:00)
[2020-02-19] MEDS: RASAGILINE 1 MG PO SCH (09:00)
[2020-02-19] MEDS: ENOXAPARIN SODIUM 30 MG/0.3 ML SQ SCH (09:02)
[2020-02-19] MEDS: AMIODARONE HCL 200 MG TABLET PO SCH (20:44)
[2020-02-19] MEDS: Vitamin B Complex/Vit C/Folic Acid PO SCH (20:44)
[2020-02-19] MEDS: ATORVASTATIN CALCIUM 40 MG TABLET PO SCH (20:44)
[2020-02-20 04:09] VITALS: BP 96/45
[2020-02-20 05:35] LABS: HEMATOCRIT 22.8 % (42-54); MEAN CORPUSCULAR HEMOGLOBIN 30.6 pg (27.0-33.0); MEAN CORPUSCULAR HGB CONC 33.3 g/dL (32.0-36.0); MEAN CORPUSCULAR VOLUME 91.9 fL (79-99); RED BLOOD CELL COUNT(AUTO) 2.48 MIL/uL (4.50-6.20); RED CELL DISTRIBUTION WIDTH 13.4 % (11.0-15.5)
[2020-02-20 05:55] LABS: MAGNESIUM 2.1 mg/dL (1.80-2.40); POTASSIUM 3.5 mmol/L (3.5-5.1)
[2020-02-20] MEDS: AMIODARONE HCL 200 MG TABLET PO SCH (06:28)
[2020-02-20] MEDS: LACTULOSE 20 GM/30 ML UDCUP PO PRN (06:28)
[2020-02-20] MEDS: ASPIRIN 325MG EC TAB 325 MG TABLET.DR PO SCH (07:19)
[2020-02-20] MEDS: FAMOTIDINE 20MG TAB 20 MG TAB PO SCH (07:19)
[2020-02-20] MEDS: AMLODIPINE BESYLATE 5 MG TAB PO SCH (07:19)
[2020-02-20] MEDS: TAMSULOSIN HCL 0.4 MG CAP.ER.24H PO SCH (07:19)
[2020-02-20] MEDS: ALLOPURINOL 100 MG TABLET PO SCH (07:19)
[2020-02-20] MEDS: CARBIDOPA-LEVODOPA 25-100 TAB PO SCH ×2 (07:19→13:51)
[2020-02-20] MEDS: FUROSEMIDE 20 MG TABLET PO SCH (07:19)
[2020-02-20] MEDS: ENOXAPARIN SODIUM 30 MG/0.3 ML SQ SCH (07:20)
[2020-02-20] MEDS: RASAGILINE 1 MG PO SCH (07:21)
[2020-02-20] MEDS: **HM** VIT D3 125MCG PO SCH (07:21)
[2020-02-20 08:00] VITALS: BP 108/40
[2020-02-20] MEDS: TRAMADOL HCL 50 MG TABLET PO PRN (10:25)
[2020-02-20 12:01] VITALS: BP 122/54
== END 2020-02-20 15:20 | DRG 235 ==
LOC: EDH 19:33 → OBSVTOIN 21:30 → INTOOBSV 21:30 → EDHIP 21:30 → 3DH 22:03 → 2CH 02-15 10:12 → 4DH 02-17 15:49
PROVIDERS: ADMIT Internal Medicine Pulmonary Disease; ATTEND Internal Medicine Pulmonary Disease
PROC: 02HV33Z Insertion of Infusion Device into Superior Vena Cava, Percutaneous Approach (ICD-10-PCS; 2020-02-15)
PROC: 02100Z9 Bypass Coronary Artery, One Artery from Left Internal Mammary, Open Approach (ICD-10-PCS; principal; 2020-02-15 10:25)
PROC: 021209W Bypass Coronary Artery, Three Arteries from Aorta with Autologous Venous Tissue, Open Approach (ICD-10-PCS; 2020-02-15 10:25)
PROC: 06BQ4ZZ Excision of Left Saphenous Vein, Percutaneous Endoscopic Approach (ICD-10-PCS; 2020-02-15 10:25)
DX: I25.110 Atherosclerotic heart disease of native coronary artery with unstable angina pectoris (principal); I50.33 Acute on chronic diastolic (congestive) heart failure; J95.1 Acute pulmonary insufficiency following thoracic surgery; N17.9 Acute kidney failure, unspecified; E87.1 Hypo-osmolality and hyponatremia; I13.0 Hypertensive heart and chronic kidney disease with heart failure and stage 1 through stage 4 chronic kidney disease, or unspecified chronic kidney disease; N18.30 Chronic kidney disease, stage 3 unspecified; E66.9 Obesity, unspecified; Z20.828 Contact with and (suspected) exposure to other viral communicable diseases; E78.5 Hyperlipidemia, unspecified; E78.00 Pure hypercholesterolemia, unspecified; E11.51 Type 2 diabetes mellitus with diabetic peripheral angiopathy without gangrene; E11.22 Type 2 diabetes mellitus with diabetic chronic kidney disease; D64.9 Anemia, unspecified; G20 Parkinson's disease; I87.2 Venous insufficiency (chronic) (peripheral); C61 Malignant neoplasm of prostate; R00.1 Bradycardia, unspecified; I48.91 Unspecified atrial fibrillation; Y83.2 Surgical operation with anastomosis, bypass or graft as the cause of abnormal reaction of the patient, or of later complication, without mention of misadventure at the time of the procedure; Z88.0 Allergy status to penicillin; Z82.49 Family history of ischemic heart disease and other diseases of the circulatory system; Z83.3 Family history of diabetes mellitus; Z79.899 Other long term (current) drug therapy; Z79.82 Long term (current) use of aspirin; Z79.4 Long term (current) use of insulin; Z68.28 Body mass index [BMI] 28.0-28.9, adult; Z86.018 Personal history of other benign neoplasm
CPT/HCPCS: 36415; 36600; 71045; 80048; 80053; 81003; 82435; 82550; 82803; 82947; 82948; 83036; 83605; 83690; 83735; 83874; 83880; 84100; 84132; 84295; 84484; 84550; 85018; 85025; 85027; 85347; 85610; 85730; 86850; 86900; 86901; 86922; 87426; 93005; 93880; 94002; 94003; 94010; 97039; A7048; G0378; J0171; J0282; J0330; J0360; J0610; J0690; J1644; J1650; J1815; J1940; J2001; J2250; J2270; J2405; J2440; J2704; J2720; J3010; J3475; J3480; J3490; J7030; J7040; J7050; J7060; J7120; P9045; U0003

== ENCOUNTER 2020-03-01 01:25 | Inpatient (IN) | payer MEDICARE ==
[~2020-03-01] VITALS: Ht 172.7 cm; Wt 79.0 kg
[~2020-03-01 01:25] MED LIST changes: +AMLO-257 PO; -AMLO-258 PO; -INSNOV SQ; +INSU100C6 SQ; -ISOS30TA6 PO; +ISOS40TA16 PO; +LISI-613 PO; -LISI40TA4 PO; -MAGN250T10 PO; +MAGOX PO; +MECL-160 PO; +NITR0.4T50 SL; -PANT40TA54 PO; +VITA-164 PO; -VITAMIN E PO
[2020-03-01 01:48] LABS: BASOPHILS % (AUTO) 0.3 % (0.0-5.0); HEMATOCRIT 24.8 % (42-54); LYMPHOCYTES % (AUTO) 8.5 % (21.0-51.0); MEAN CORPUSCULAR HEMOGLOBIN 30.6 pg (27.0-33.0); MEAN CORPUSCULAR HGB CONC 33.5 g/dL (32.0-36.0); MEAN CORPUSCULAR VOLUME 91.5 fL (79-99); MONOCYTES % (AUTO) 8.2 % (3.0-13.0); NEUTROPHILS % (AUTO) 80.5 % (40.0-77.0); PLATELET COUNT (AUTO) 621 K/uL (130-400); RED BLOOD CELL COUNT(AUTO) 2.71 MIL/uL (4.50-6.20); RED CELL DISTRIBUTION WIDTH 14.6 % (11.0-15.5); WHITE BLOOD COUNT (AUTO) 12.8 K/uL (4.8-10.8)
[2020-03-01 01:55] LABS: CREATININE 2.8 mg/dL (0.5-1.5); POTASSIUM 4.6 mmol/L (3.5-5.1)
[2020-03-01 01:58] LABS: ALBUMIN 1.9 g/dL (3.5-5.0); BILIRUBIN,TOTAL 0.7 mg/dL (0.2-1.0); INR 1.09 (0.85-1.15); PARTIAL THROMBOPLASTIN TIME 27.1 SEC (26.3-35.5); PROTHROMBIN TIME 11.7 SEC (9.6-11.6); TOTAL PROTEIN, SERUM 6.3 g/dL (6.0-8.3)
[2020-03-01 03:12] LABS: APPEARANCE,URINE Clear (CLEAR); BILIRUBIN,URINE Negative (NEGATIVE); COLOR,URINE Yellow (YELLOW); GLUCOSE, URINE (UA) Negative (NEGATIVE); KETONES,URINE Negative (NEGATIVE); LEUKOCYTE ESTERASE ,URINE Negative (NEGATIVE); NITRATE,URINE Negative (NEGATIVE); OCCULT BLOOD,URINE Negative (NEGATIVE); PROTEIN,URINE Negative (NEGATIVE)
[2020-03-01 05:05] VITALS: BP 105/45
[2020-03-01] MEDS ORDERED: ACETAMINOPHEN 325 MG TAB PO PRN (05:15)
[2020-03-01] MEDS ORDERED: SODIUM CHLORIDE 0.9% 1000ML 1,000 ML IV SCH (05:15)
[2020-03-01] MEDS ORDERED: ONDANSETRON HCL 4 MG/2 ML VIAL IVP PRN (05:15)
[2020-03-01] MEDS ORDERED: ALLO100T PO (05:53)
[2020-03-01] MEDS ORDERED: CALC-322 PO (05:53)
[2020-03-01] MEDS ORDERED: FURO20TA4 PO (05:53)
[2020-03-01] MEDS ORDERED: ATOR40TA71 PO (05:53)
[2020-03-01 06:28] LABS: HEMATOCRIT 24.4 % (42-54); MEAN CORPUSCULAR HGB CONC 32.8 g/dL (32.0-36.0); MEAN CORPUSCULAR VOLUME 91.4 fL (79-99); PLATELET COUNT (AUTO) 605 K/uL (130-400); RED BLOOD CELL COUNT(AUTO) 2.67 MIL/uL (4.50-6.20); RED CELL DISTRIBUTION WIDTH 14.6 % (11.0-15.5); WHITE BLOOD COUNT (AUTO) 12.6 K/uL (4.8-10.8)
[2020-03-01 06:50] LABS: BASOPHILS % (MANUAL) 1 % (0-2); EOSINOPHILS % (MANUAL) 1 % (1-6); LYMPHOCYTES % (MANUAL) 5 % (22-44); MAN.DIFF COMMENT-IMPRESSION MANUAL DIFFERENTIAL; MONOCYTES % (MANUAL) 1 % (2-9); PLATELET MORPHOLOGY COMMENT MARKED INCREASE; SEGMENTED NEUTROPHILS % 92 % (40-70)
[2020-03-01 07:14] LABS: CREATININE 2.6 mg/dL (0.5-1.5); MAGNESIUM 2.2 mg/dL (1.80-2.40); PHOSPHORUS 4.6 mg/dL (2.5-4.9)
[2020-03-01 07:51] LABS: POTASSIUM 4.4 mmol/L (3.5-5.1)
[2020-03-01 08:30] VITALS: BP 122/50
[2020-03-01] MEDS: AMIODARONE HCL 200 MG TABLET PO SCH ×2 (09:00→21:39)
[2020-03-01] MEDS: CARBIDOPA-LEVODOPA 25-100 TAB PO SCH ×4 (09:20→21:39)
[2020-03-01] MEDS: FAMOTIDINE 20MG TAB 20 MG TAB PO SCH (09:20)
[2020-03-01] MEDS ORDERED: VANCOMYCIN PROTOCOL PER PHARMACY IV SCH (10:15)
[2020-03-01 12:15] VITALS: BP 107/66
[2020-03-01 12:16] VITALS: BP 124/55
[2020-03-01] MEDS: VANCOMYCIN 1GM+NS 250ML 250 ML IV SCH (15:18)
[2020-03-01 18:20] LABS: SPECIMENTYPE,BODY FLUID PLEURAL
[2020-03-01 18:21] LABS: APPEARANCE BODY FLUID BLOODY (CLEAR); COLOR,BODY FLUID RED (LT YELLOW); TOTAL VOLUME,BODY FLUID 500 mL
[2020-03-01 18:23] LABS: BODY FLUID WBC 107 /cu. mm.
[2020-03-01 18:24] LABS: BODY FLUID RBC 103500 /cu. mm.
[2020-03-01 19:14] VITALS: BP 128/47
[2020-03-01 20:30] LABS: BF LYMPHOCYTE 17 %; BF MONOCYTE 1 %
[2020-03-01] MEDS: TAMSULOSIN HCL 0.4 MG CAP.ER.24H PO SCH (21:39)
[2020-03-01] MEDS: Vitamin B Complex/Vit C/Folic Acid PO SCH (21:39)
[2020-03-02] VITALS (10 sets, daily range): BP systolic 108–137; BP diastolic 43–55
[2020-03-02 06:09] LABS: HEMATOCRIT 24.2 % (42-54); MEAN CORPUSCULAR HEMOGLOBIN 30.1 pg (27.0-33.0); MEAN CORPUSCULAR HGB CONC 33.1 g/dL (32.0-36.0); RED BLOOD CELL COUNT(AUTO) 2.66 MIL/uL (4.50-6.20); RED CELL DISTRIBUTION WIDTH 14.6 % (11.0-15.5); WHITE BLOOD COUNT (AUTO) 11.3 K/uL (4.8-10.8)
[2020-03-02 06:15] LABS: CREATININE 2.2 mg/dL (0.5-1.5); POTASSIUM 4.4 mmol/L (3.5-5.1)
[2020-03-02] MEDS: **HM** VIT D3 125MCG PO SCH (09:00)
[2020-03-02] MEDS: FAMOTIDINE 20MG TAB 20 MG TAB PO SCH (09:03)
[2020-03-02] MEDS: VITAMIN E 400 UNIT CAPSULE PO SCH (09:03)
[2020-03-02] MEDS: AMIODARONE HCL 200 MG TABLET PO SCH ×2 (09:03→21:18)
[2020-03-02] MEDS: CALCIUM CARBONATE 500 MG TABLET PO SCH (09:04)
[2020-03-02] MEDS: CARBIDOPA-LEVODOPA 25-100 TAB PO SCH ×4 (09:04→21:18)
[2020-03-02] MEDS: TAMSULOSIN HCL 0.4 MG CAP.ER.24H PO SCH ×2 (09:04→21:18)
[2020-03-02] MEDS: ATORVASTATIN CALCIUM 40 MG TABLET PO SCH (09:04)
[2020-03-02] MEDS: VANCOMYCIN 1GM+NS 250ML 250 ML IV SCH (10:44)
[2020-03-02] MEDS ORDERED: MORPHINE SULFATE 2 MG/ML 1ML SYG ONE (12:18)
[2020-03-02 13:17] LABS: TROPONIN I 0.11 ng/mL (0.00-0.06)
[2020-03-02] MEDS ORDERED: MORPHINE SULFATE 2 MG/ML 1ML SYG IVP ONE (13:30)
[2020-03-02] MEDS: MEROPENEM 1 GM VIAL IVP SCH (14:01)
[2020-03-02] MEDS: FUROSEMIDE 20 MG TABLET PO SCH (16:39)
[2020-03-02 20:56] LABS: TROPONIN I 5.58 ng/mL (0.00-0.06)
[2020-03-02] MEDS: Vitamin B Complex/Vit C/Folic Acid PO SCH (21:18)
[2020-03-02] MEDS: METOPROLOL TARTRATE 25 MG TAB PO SCH (21:19)
[2020-03-03] VITALS (7 sets, daily range): BP systolic 102–147; BP diastolic 45–67
[2020-03-03 00:40] LABS: TROPONIN I 8.01 ng/mL (0.00-0.06)
[2020-03-03] MEDS: MEROPENEM 1 GM VIAL IVP SCH ×3 (01:13→23:19)
[2020-03-03 05:27] LABS: CREATININE 2.8 mg/dL (0.5-1.5); POTASSIUM 4.8 mmol/L (3.5-5.1)
[2020-03-03] MEDS: METOPROLOL TARTRATE 25 MG TAB PO SCH ×2 (07:40→20:56)
[2020-03-03] MEDS: AMIODARONE HCL 200 MG TABLET PO SCH ×2 (07:40→20:56)
[2020-03-03] MEDS: ASPIRIN 325MG EC TAB 325 MG TABLET.DR PO SCH (07:40)
[2020-03-03] MEDS: **HM** VIT D3 125MCG PO SCH (09:00)
[2020-03-03] MEDS: VITAMIN E 400 UNIT CAPSULE PO SCH (10:09)
[2020-03-03] MEDS: CALCIUM CARBONATE 500 MG TABLET PO SCH (10:09)
[2020-03-03] MEDS: FAMOTIDINE 20MG TAB 20 MG TAB PO SCH (10:09)
[2020-03-03] MEDS: FUROSEMIDE 20 MG TABLET PO SCH (10:10)
[2020-03-03] MEDS: CARBIDOPA-LEVODOPA 25-100 TAB PO SCH ×4 (10:10→20:56)
[2020-03-03] MEDS: TAMSULOSIN HCL 0.4 MG CAP.ER.24H PO SCH ×2 (10:10→20:55)
[2020-03-03] MEDS: ATORVASTATIN CALCIUM 40 MG TABLET PO SCH (10:10)
[2020-03-03] MEDS: VANCOMYCIN 1GM+NS 250ML 250 ML IV SCH (10:11)
[2020-03-03 10:37] LABS: TROPONIN I 12.27 ng/mL (0.00-0.06)
[2020-03-03] MEDS: INSULIN HUMULIN R 100 UNIT/ML 3ML SQ SCH ×3 (13:03→20:54)
[2020-03-03] MEDS: LACTULOSE 20 GM/30 ML UDCUP PO PRN (17:33)
[2020-03-03] MEDS: Vitamin B Complex/Vit C/Folic Acid PO SCH (20:56)
[2020-03-03 21:32] LABS: TROPONIN I 12.9 ng/mL (0.00-0.06)
[2020-03-04 03:14] VITALS: BP 116/45
[2020-03-04 05:05] LABS: BASOPHILS % (AUTO) 0.5 % (0.0-5.0); EOSINOPHILS % (AUTO) 2.3 % (0.0-8.0); HEMATOCRIT 24.9 % (42-54); LYMPHOCYTES % (AUTO) 7.8 % (21.0-51.0); MEAN CORPUSCULAR HEMOGLOBIN 29.9 pg (27.0-33.0); MEAN CORPUSCULAR HGB CONC 32.9 g/dL (32.0-36.0); MEAN CORPUSCULAR VOLUME 90.9 fL (79-99); NEUTROPHILS % (AUTO) 78.8 % (40.0-77.0); PLATELET COUNT (AUTO) 609 K/uL (130-400); RED BLOOD CELL COUNT(AUTO) 2.74 MIL/uL (4.50-6.20); RED CELL DISTRIBUTION WIDTH 14.5 % (11.0-15.5); WHITE BLOOD COUNT (AUTO) 11.8 K/uL (4.8-10.8)
[2020-03-04 05:20] LABS: ALBUMIN 1.5 g/dL (3.5-5.0); BILIRUBIN,TOTAL 0.6 mg/dL (0.2-1.0); POTASSIUM 4.9 mmol/L (3.5-5.1); TOTAL PROTEIN, SERUM 5.7 g/dL (6.0-8.3)
[2020-03-04] MEDS: INSULIN HUMULIN R 100 UNIT/ML 3ML SQ SCH ×4 (06:10→22:31)
[2020-03-04 08:44] VITALS: BP 137/57
[2020-03-04] MEDS: **HM** VIT D3 125MCG PO SCH (09:00)
[2020-03-04] MEDS: AMIODARONE HCL 200 MG TABLET PO SCH ×2 (10:01→21:00)
[2020-03-04] MEDS: METOPROLOL TARTRATE 25 MG TAB PO SCH ×2 (10:02→21:00)
[2020-03-04] MEDS: TAMSULOSIN HCL 0.4 MG CAP.ER.24H PO SCH ×2 (10:02→22:20)
[2020-03-04] MEDS: FAMOTIDINE 20MG TAB 20 MG TAB PO SCH (10:02)
[2020-03-04] MEDS: ASPIRIN 325MG EC TAB 325 MG TABLET.DR PO SCH (10:02)
[2020-03-04] MEDS: VITAMIN E 400 UNIT CAPSULE PO SCH (10:02)
[2020-03-04] MEDS: CALCIUM CARBONATE 500 MG TABLET PO SCH (10:02)
[2020-03-04] MEDS: FUROSEMIDE 20 MG TABLET PO SCH (10:03)
[2020-03-04] MEDS: CARBIDOPA-LEVODOPA 25-100 TAB PO SCH ×4 (10:03→22:20)
[2020-03-04] MEDS ORDERED: MIDODRINE HCL 5 MG TABLET PO PRN (12:45)
[2020-03-04] MEDS: MEROPENEM 1 GM VIAL IVP SCH ×2 (12:47→23:44)
[2020-03-04] MEDS: ATORVASTATIN CALCIUM 40 MG TABLET PO SCH (12:48)
[2020-03-04] MEDS: VANCOMYCIN 1GM+NS 250ML 250 ML IV SCH (12:49)
[2020-03-04 14:53] VITALS: BP 105/43
[2020-03-04 16:00] VITALS: BP 110/42
[2020-03-04 19:49] VITALS: BP 109/42
[2020-03-04] MEDS: Vitamin B Complex/Vit C/Folic Acid PO SCH (22:20)
[2020-03-04 23:53] VITALS: BP 113/49
[2020-03-05 03:32] VITALS: BP 104/42
[2020-03-05 05:53] LABS: HEMATOCRIT 25.6 % (42-54); MEAN CORPUSCULAR HEMOGLOBIN 29.2 pg (27.0-33.0); MEAN CORPUSCULAR VOLUME 91.1 fL (79-99); RED BLOOD CELL COUNT(AUTO) 2.81 MIL/uL (4.50-6.20); RED CELL DISTRIBUTION WIDTH 14.6 % (11.0-15.5); WHITE BLOOD COUNT (AUTO) 10.7 K/uL (4.8-10.8)
[2020-03-05] MEDS: INSULIN HUMULIN R 100 UNIT/ML 3ML SQ SCH ×4 (06:11→22:21)
[2020-03-05 06:14] LABS: ALBUMIN 1.5 g/dL (3.5-5.0); BILIRUBIN,TOTAL 0.6 mg/dL (0.2-1.0); CREATININE 1.9 mg/dL (0.5-1.5); POTASSIUM 4.5 mmol/L (3.5-5.1); TOTAL PROTEIN, SERUM 5.6 g/dL (6.0-8.3)
[2020-03-05 07:56] VITALS: BP 128/55
[2020-03-05] MEDS: **HM** VIT D3 125MCG PO SCH (09:00)
[2020-03-05] MEDS: ATORVASTATIN CALCIUM 40 MG TABLET PO SCH (09:36)
[2020-03-05] MEDS: TAMSULOSIN HCL 0.4 MG CAP.ER.24H PO SCH ×2 (09:36→22:19)
[2020-03-05] MEDS: CARBIDOPA-LEVODOPA 25-100 TAB PO SCH ×4 (09:36→22:20)
[2020-03-05] MEDS: FUROSEMIDE 20 MG TABLET PO SCH ×2 (09:37→22:20)
[2020-03-05] MEDS: FAMOTIDINE 20MG TAB 20 MG TAB PO SCH (09:37)
[2020-03-05] MEDS: METOPROLOL TARTRATE 25 MG TAB PO SCH ×2 (09:37→21:00)
[2020-03-05] MEDS: AMIODARONE HCL 200 MG TABLET PO SCH ×2 (09:37→22:20)
[2020-03-05] MEDS: ASPIRIN 325MG EC TAB 325 MG TABLET.DR PO SCH (09:37)
[2020-03-05] MEDS: VANCOMYCIN 1GM+NS 250ML 250 ML IV SCH (09:38)
[2020-03-05] MEDS: VITAMIN E 400 UNIT CAPSULE PO SCH (09:38)
[2020-03-05] MEDS: CALCIUM CARBONATE 500 MG TABLET PO SCH (10:03)
[2020-03-05 11:41] VITALS: BP 131/59
[2020-03-05] MEDS: MEROPENEM 1 GM VIAL IVP SCH ×2 (12:34→23:56)
[2020-03-05 16:00] VITALS: BP 116/48
[2020-03-05 19:53] VITALS: BP 119/48
[2020-03-05] MEDS: Vitamin B Complex/Vit C/Folic Acid PO SCH (22:19)
[2020-03-05 23:30] VITALS: BP 129/54
[2020-03-06 03:43] VITALS: BP 123/50
[2020-03-06 05:27] LABS: HEMATOCRIT 24.6 % (42-54); MEAN CORPUSCULAR HEMOGLOBIN 29.5 pg (27.0-33.0); MEAN CORPUSCULAR HGB CONC 32.5 g/dL (32.0-36.0); MEAN CORPUSCULAR VOLUME 90.8 fL (79-99); RED BLOOD CELL COUNT(AUTO) 2.71 MIL/uL (4.50-6.20); RED CELL DISTRIBUTION WIDTH 14.6 % (11.0-15.5); WHITE BLOOD COUNT (AUTO) 11.2 K/uL (4.8-10.8)
[2020-03-06 05:41] LABS: CREATININE 1.8 mg/dL (0.5-1.5); POTASSIUM 4.4 mmol/L (3.5-5.1)
[2020-03-06] MEDS: INSULIN HUMULIN R 100 UNIT/ML 3ML SQ SCH ×4 (06:47→21:51)
[2020-03-06 07:52] VITALS: BP 135/46
[2020-03-06] MEDS: **HM** VIT D3 125MCG PO SCH (09:00)
[2020-03-06] MEDS ORDERED: RASAGILINE MESYLATE 1 MG PO SCH ×2 (09:00→10:00)
[2020-03-06] MEDS: Rasagiline Mesylate 1 MG PO SCH (10:00)
[2020-03-06] MEDS: ASPIRIN 325MG EC TAB 325 MG TABLET.DR PO SCH (10:10)
[2020-03-06] MEDS: VANCOMYCIN 1GM+NS 250ML 250 ML IV SCH (10:10)
[2020-03-06] MEDS: VITAMIN E 400 UNIT CAPSULE PO SCH (10:11)
[2020-03-06] MEDS: FUROSEMIDE 20 MG TABLET PO SCH ×2 (10:11→23:51)
[2020-03-06] MEDS: FAMOTIDINE 20MG TAB 20 MG TAB PO SCH (10:11)
[2020-03-06] MEDS: METOPROLOL TARTRATE 25 MG TAB PO SCH ×2 (10:11→21:00)
[2020-03-06] MEDS: ATORVASTATIN CALCIUM 40 MG TABLET PO SCH (10:11)
[2020-03-06] MEDS: AMIODARONE HCL 200 MG TABLET PO SCH ×2 (10:11→21:00)
[2020-03-06] MEDS: CALCIUM CARBONATE 500 MG TABLET PO SCH (10:11)
[2020-03-06] MEDS: TAMSULOSIN HCL 0.4 MG CAP.ER.24H PO SCH ×2 (10:11→22:17)
[2020-03-06] MEDS: CARBIDOPA-LEVODOPA 25-100 TAB PO SCH ×4 (10:14→22:17)
[2020-03-06] MEDS ORDERED: PHARMACY COMMUNICATION MISC SCH (11:15)
[2020-03-06] MEDS ORDERED: ALTEPLASE 2 MG/VIAL IVCATH SCH (11:15)
[2020-03-06 11:46] VITALS: BP 111/43
[2020-03-06] MEDS: MEROPENEM 1 GM VIAL IVP SCH ×2 (12:12→23:51)
[2020-03-06] MEDS: LACTULOSE 20 GM/30 ML UDCUP PO PRN (12:18)
[2020-03-06 16:00] VITALS: BP 116/54
[2020-03-06 20:00] VITALS: BP 110/49
[2020-03-06] MEDS: Vitamin B Complex/Vit C/Folic Acid PO SCH (22:17)
[2020-03-07] VITALS: BP 106/48
[2020-03-07] MEDS: NITROGLYCERIN 0.4 MG SL TAB SL PRN ×2 (03:59→04:30)
[2020-03-07 04:00] VITALS: BP 110/45
[2020-03-07 06:36] LABS: BASOPHILS % (AUTO) 0.7 % (0.0-5.0); EOSINOPHILS % (AUTO) 4.5 % (0.0-8.0); HEMATOCRIT 24.9 % (42-54); LYMPHOCYTES % (AUTO) 12.6 % (21.0-51.0); MEAN CORPUSCULAR HEMOGLOBIN 29.2 pg (27.0-33.0); MEAN CORPUSCULAR HGB CONC 32.1 g/dL (32.0-36.0); MEAN CORPUSCULAR VOLUME 90.9 fL (79-99); MONOCYTES % (AUTO) 11.4 % (3.0-13.0); PLATELET COUNT (AUTO) 586 K/uL (130-400); RED BLOOD CELL COUNT(AUTO) 2.74 MIL/uL (4.50-6.20); RED CELL DISTRIBUTION WIDTH 14.4 % (11.0-15.5); WHITE BLOOD COUNT (AUTO) 10.7 K/uL (4.8-10.8)
[2020-03-07] MEDS: INSULIN HUMULIN R 100 UNIT/ML 3ML SQ SCH ×4 (06:37→20:57)
[2020-03-07 06:43] LABS: CREATININE 1.7 mg/dL (0.5-1.5); POTASSIUM 4.2 mmol/L (3.5-5.1)
[2020-03-07 07:00] VITALS: BP 122/52
[2020-03-07] MEDS: CALCIUM CARBONATE 500 MG TABLET PO SCH (09:41)
[2020-03-07] MEDS: VITAMIN E 400 UNIT CAPSULE PO SCH (09:41)
[2020-03-07] MEDS: FAMOTIDINE 20MG TAB 20 MG TAB PO SCH (09:42)
[2020-03-07] MEDS: ATORVASTATIN CALCIUM 40 MG TABLET PO SCH (09:42)
[2020-03-07] MEDS: FUROSEMIDE 20 MG TABLET PO SCH ×2 (09:42→20:56)
[2020-03-07] MEDS: TAMSULOSIN HCL 0.4 MG CAP.ER.24H PO SCH ×2 (09:42→20:56)
[2020-03-07] MEDS: CARBIDOPA-LEVODOPA 25-100 TAB PO SCH ×4 (09:42→20:54)
[2020-03-07] MEDS: ASPIRIN 325MG EC TAB 325 MG TABLET.DR PO SCH (09:42)
[2020-03-07] MEDS: AMIODARONE HCL 200 MG TABLET PO SCH ×2 (09:42→20:54)
[2020-03-07] MEDS: METOPROLOL TARTRATE 25 MG TAB PO SCH ×2 (09:42→20:55)
[2020-03-07] MEDS: **HM** VIT D3 125MCG PO SCH (09:49)
[2020-03-07] MEDS: Rasagiline Mesylate 1 MG PO SCH (10:00)
[2020-03-07 11:00] VITALS: BP 98/36
[2020-03-07] MEDS: MEROPENEM 1 GM VIAL IVP SCH ×2 (13:07→23:18)
[2020-03-07] MEDS: VANCOMYCIN 1GM+NS 250ML 250 ML IV SCH (13:08)
[2020-03-07 16:00] VITALS: BP 103/47
[2020-03-07 20:00] VITALS: BP 129/69
[2020-03-07] MEDS: Vitamin B Complex/Vit C/Folic Acid PO SCH (20:55)
[2020-03-08] VITALS: BP 129/57
[2020-03-08 04:00] VITALS: BP 109/47
[2020-03-08 05:28] LABS: HEMATOCRIT 27.7 % (42-54); MEAN CORPUSCULAR HEMOGLOBIN 29.4 pg (27.0-33.0); MEAN CORPUSCULAR HGB CONC 31.8 g/dL (32.0-36.0); MEAN CORPUSCULAR VOLUME 92.6 fL (79-99); RED BLOOD CELL COUNT(AUTO) 2.99 MIL/uL (4.50-6.20); RED CELL DISTRIBUTION WIDTH 14.5 % (11.0-15.5)
[2020-03-08 05:46] LABS: CREATININE 1.8 mg/dL (0.5-1.5); POTASSIUM 4.8 mmol/L (3.5-5.1)
[2020-03-08] MEDS: INSULIN HUMULIN R 100 UNIT/ML 3ML SQ SCH ×3 (06:31→17:18)
[2020-03-08 07:00] VITALS: BP 117/49
[2020-03-08] MEDS: VITAMIN E 400 UNIT CAPSULE PO SCH (08:11)
[2020-03-08] MEDS: AMIODARONE HCL 200 MG TABLET PO SCH (08:12)
[2020-03-08] MEDS: FUROSEMIDE 20 MG TABLET PO SCH (08:12)
[2020-03-08] MEDS: FAMOTIDINE 20MG TAB 20 MG TAB PO SCH (08:12)
[2020-03-08] MEDS: ATORVASTATIN CALCIUM 40 MG TABLET PO SCH (08:12)
[2020-03-08] MEDS: ASPIRIN 325MG EC TAB 325 MG TABLET.DR PO SCH (08:12)
[2020-03-08] MEDS: CALCIUM CARBONATE 500 MG TABLET PO SCH (08:13)
[2020-03-08] MEDS: CARBIDOPA-LEVODOPA 25-100 TAB PO SCH ×3 (08:13→17:18)
[2020-03-08] MEDS: METOPROLOL TARTRATE 25 MG TAB PO SCH (08:13)
[2020-03-08] MEDS: TAMSULOSIN HCL 0.4 MG CAP.ER.24H PO SCH (08:13)
[2020-03-08] MEDS: **HM** VIT D3 125MCG PO SCH (09:00)
[2020-03-08] MEDS: Rasagiline Mesylate 1 MG PO SCH (10:00)
[2020-03-08 11:00] VITALS: BP 116/42
[2020-03-08] MEDS: VANCOMYCIN 1GM+NS 250ML 250 ML IV SCH (13:02)
[2020-03-08] MEDS: MEROPENEM 1 GM VIAL IVP SCH (13:02)
[2020-03-08 16:00] VITALS: BP 105/41
== END 2020-03-08 22:00 | DRG 186 ==
LOC: EDH 01:25 → EDHIP 04:12 → 4CH 05:23
PROVIDERS: ADMIT Internal Medicine; ATTEND Internal Medicine
PROC: 0W9B30Z Drainage of Left Pleural Cavity with Drainage Device, Percutaneous Approach (ICD-10-PCS; principal; 2020-03-01)
DX: J90 Pleural effusion, not elsewhere classified (principal); J96.91 Respiratory failure, unspecified with hypoxia; I21.4 Non-ST elevation (NSTEMI) myocardial infarction; J15.9 Unspecified bacterial pneumonia; N17.9 Acute kidney failure, unspecified; J94.8 Other specified pleural conditions; N18.4 Chronic kidney disease, stage 4 (severe); T81.32XA Disruption of internal operation (surgical) wound, not elsewhere classified, initial encounter; I12.9 Hypertensive chronic kidney disease with stage 1 through stage 4 chronic kidney disease, or unspecified chronic kidney disease; E11.22 Type 2 diabetes mellitus with diabetic chronic kidney disease; E78.5 Hyperlipidemia, unspecified; C61 Malignant neoplasm of prostate; E78.00 Pure hypercholesterolemia, unspecified; E87.70 Fluid overload, unspecified; G20 Parkinson's disease; I25.10 Atherosclerotic heart disease of native coronary artery without angina pectoris; I48.0 Paroxysmal atrial fibrillation; N40.0 Benign prostatic hyperplasia without lower urinary tract symptoms; D63.8 Anemia in other chronic diseases classified elsewhere; Y83.8 Other surgical procedures as the cause of abnormal reaction of the patient, or of later complication, without mention of misadventure at the time of the procedure; Z79.01 Long term (current) use of anticoagulants; Z79.4 Long term (current) use of insulin; Z79.899 Other long term (current) drug therapy; Z95.1 Presence of aortocoronary bypass graft; Z88.0 Allergy status to penicillin; Y92.89 Other specified places as the place of occurrence of the external cause
CPT/HCPCS: 10030; 36415; 71045; 71250; 76942; 78582; 80048; 80053; 80202; 81003; 82550; 82945; 82947; 82948; 83615; 83735; 83874; 83880; 83986; 84100; 84155; 84157; 84484; 85025; 85027; 85378; 85610; 85651; 85730; 87040; 87070; 87071; 87076; 87116; 87205; 87206; 88112; 88305; 89051; 92610; 93005; 93306; 93356; 93970; 97039; A9540; A9558; G0378; J1815; J2185; J2997; J3370

== ENCOUNTER 2020-04-01 17:21 | Inpatient (IN) | payer MEDICARE ==
[~2020-04-01] VITALS: Ht 172.7 cm; Wt 102.1 kg
[~2020-04-01 17:21] MED LIST changes: -ATOR40TA69 PO; +ATOR40TA71 PO; +CALC-322 PO; +FURO20TA4 PO; -GABA-529 PO; -ISOS40TA16 PO; -LISI-613 PO; -MAGOX PO; -SODIUM BICARBONATE PO
[2020-04-01 17:53] LABS: BASOPHILS % (AUTO) 0.1 % (0.0-5.0); EOSINOPHILS % (AUTO) 0.4 % (0.0-8.0); HEMATOCRIT 26.2 % (42-54); LYMPHOCYTES % (AUTO) 32.5 % (21.0-51.0); MEAN CORPUSCULAR HEMOGLOBIN 28.6 pg (27.0-33.0); MEAN CORPUSCULAR HGB CONC 32.1 g/dL (32.0-36.0); MEAN CORPUSCULAR VOLUME 89.1 fL (79-99); MONOCYTES % (AUTO) 12.6 % (3.0-13.0); NEUTROPHILS % (AUTO) 53.8 % (40.0-77.0); NUCLEATED RED BLOOD CELLS 0.7 % (0.0-0.19); PLATELET COUNT (AUTO) 297 K/uL (130-400); RED BLOOD CELL COUNT(AUTO) 2.94 MIL/uL (4.50-6.20); RED CELL DISTRIBUTION WIDTH 16.4 % (11.0-15.5); WHITE BLOOD COUNT (AUTO) 8.6 K/uL (4.8-10.8)
[2020-04-01 18:19] LABS: B-TYPE NATRIURETIC PEPTIDE 862 pg/mL (0-100)
[2020-04-01] MEDS ORDERED: LEVOFLOXACIN 500 MG TABLET ONE (18:19)
[2020-04-01] MEDS ORDERED: DEXAMETHASONE SOD PHOSPHATE 10MG/ML 1ML VIAL ONE (18:19)
[2020-04-01] MEDS ORDERED: AZITHROMYCIN 500MG+NS 250ML 250 ML IV ONE (18:19)
[2020-04-01] MEDS ORDERED: NIFEDIPINE ER 30 MG TAB PO ONE (18:20)
[2020-04-01 18:23] LABS: LACTATE DEHYDROGENASE 266 U/L (81-234)
[2020-04-01 18:35] LABS: ABG BASE EXCESS -5.2 mmol/L (-2.0-3.0); ABG HCO3 19.3 mmol/L (21.0-28.0); ABG OXYGEN SATURATION 96.6 % (95.0-99.0); ABG PCO2 35 mmHg (35-48)
[2020-04-01] MEDS ORDERED: MONTELUKAST SODIUM 10 MG TAB PO ONE (18:45)
[2020-04-01 18:49] LABS: CREATININE 1.6 mg/dL (0.5-1.5); INR 1.13 (0.85-1.15); POTASSIUM 4.2 mmol/L (3.5-5.1)
[2020-04-01 18:50] LABS: PARTIAL THROMBOPLASTIN TIME 26.3 SEC (26.3-35.5)
[2020-04-01 18:53] LABS: ALBUMIN 2.5 g/dL (3.5-5.0); BILIRUBIN,TOTAL 0.8 mg/dL (0.2-1.0); TOTAL PROTEIN, SERUM 6.9 g/dL (6.0-8.3)
[2020-04-01 19:09] LABS: TROPONIN I 0.3 ng/mL (0.00-0.06)
[2020-04-01] MEDS ORDERED: NITROGLYCERIN 1GM OINT 1 INCH/1GM TD ONE (19:21)
[2020-04-01] MEDS ORDERED: ASPIRIN 81MG CHEW TAB ONE (19:21)
[2020-04-01] MEDS ORDERED: NITROGLYCERIN 0.4 MG SL TAB SL PRN (20:45)
[2020-04-01] MEDS ORDERED: MAGNESIUM 2GM PREMIX 50ML 50 ML IV SCH (20:45)
[2020-04-01] MEDS: CEFTRIAXONE 1G VIAL IVP SCH (20:45)
[2020-04-01] MEDS ORDERED: LEVOFLOXACIN 750 MG/D5W 150 ML 150 ML IV SCH (20:45)
[2020-04-01] MEDS ORDERED: ONDANSETRON 4MG INJ IVP PRN (20:45)
[2020-04-01] MEDS ORDERED: KCL 20 MEQ ERTAB PO PRN (20:45)
[2020-04-01] MEDS ORDERED: POTASSIUM CHLORIDE 10% ELIXIR 20 MEQ/15 ML UDCUP PO PRN (20:45)
[2020-04-01] MEDS ORDERED: LIDOCAINE HCL-MPF 1% 2ML VIAL IJ PRN (20:45)
[2020-04-01] MEDS: ATORVASTATIN 40 MG TABLET PO SCH (21:00)
[2020-04-01] MEDS: ENOXAPARIN SODIUM 80 MG/0.8 ML SQ SCH (21:00)
[2020-04-01] MEDS ORDERED: ENOXAPARIN SODIUM 80 MG/0.8 ML SQ ONE (23:32)
[2020-04-01] MEDS ORDERED: ATORVASTATIN 40 MG TABLET ONE (23:33)
[2020-04-01] MEDS ORDERED: CEFTRIAXONE 1G VIAL ONE (23:33)
[2020-04-01] MEDS ORDERED: 0.9%NACL 1000ML 1,000 ML IV ONE (23:34)
[2020-04-02 02:59] LABS: APPEARANCE,URINE Clear (CLEAR); BILIRUBIN,URINE Negative (NEGATIVE); COLOR,URINE Yellow (YELLOW); GLUCOSE, URINE (UA) Negative (NEGATIVE); KETONES,URINE Trace mg/dL (NEGATIVE); LEUKOCYTE ESTERASE ,URINE Negative (NEGATIVE); NITRATE,URINE Negative (NEGATIVE); OCCULT BLOOD,URINE Negative (NEGATIVE); PROTEIN,URINE POS 1+ mg/dL (NEGATIVE); UROBILINOGEN,URINE 0.2 mg/dL (0.2-1.0)
[2020-04-02 03:20] LABS: BACTERIA,URINE Few /HPF (None Seen); MUCUS,URINE Rare LPF (None Seen); RBC,URINE 0-1 /HPF (0-1); SQUAMOUS EPITHELIAL CELL,UR 0-2 /HPF (0-2); WBC,URINE 0-1 /HPF (0-1)
[2020-04-02] MEDS ORDERED: RASA1TAB4 PO (04:47)
[2020-04-02] MEDS: 0.9%NACL 1000ML 1,000 ML IV SCH ×3 (06:58→23:25)
[2020-04-02 08:00] VITALS: BP 135/69
[2020-04-02] MEDS ORDERED: FUROSEMIDE 20MG VIAL IV SCH (09:15)
[2020-04-02] MEDS ORDERED: DEXAMETHASONE 4 MG TAB PO SCH (09:15)
[2020-04-02] MEDS: ASPIRIN 81MG CHEW TAB PO SCH (09:20)
[2020-04-02] MEDS: ENOXAPARIN SODIUM 80 MG/0.8 ML SQ SCH ×2 (09:21→20:50)
[2020-04-02 10:00] LABS: CREATININE 1.7 mg/dL (0.5-1.5); POTASSIUM 4.6 mmol/L (3.5-5.1)
[2020-04-02] MEDS: METOPROLOL TARTRATE 25 MG TAB PO SCH ×2 (10:57→20:51)
[2020-04-02 11:00] VITALS: BP 131/85
[2020-04-02 15:45] VITALS: BP 129/61
[2020-04-02] MEDS ORDERED: LANTUS 20 UNIT SQ SCH (16:15)
[2020-04-02] MEDS ORDERED: GLUCAGON 1MG KIT 1 MG ML IM PRN (16:30)
[2020-04-02] MEDS ORDERED: LIDOCAINE HCL-MPF 1% 2ML VIAL IV PRN (16:30)
[2020-04-02] MEDS ORDERED: POTASSIUM CHLORIDE 10% ELIXIR 20 MEQ/15 ML UDCUP PO PRN (16:30)
[2020-04-02] MEDS ORDERED: KCL 20 MEQ ERTAB PO PRN (16:30)
[2020-04-02] MEDS ORDERED: POTASSIUM CHLORIDE 20MEQ/100ML 100 ML IV PRN (16:30)
[2020-04-02] MEDS ORDERED: LANTUS SQ PRN (17:30)
[2020-04-02] MEDS: CARBIDOPA-LEVODOPA 25-100 TAB PO SCH ×2 (17:39→20:50)
[2020-04-02] MEDS: INSULIN HUMULIN R 100 UNIT/ML 3ML SQ SCH ×2 (17:41→20:53)
[2020-04-02 19:00] VITALS: BP 148/79
[2020-04-02] MEDS: CEFTRIAXONE 1G VIAL IVP SCH (20:48)
[2020-04-02] MEDS: ATORVASTATIN 40 MG TABLET PO SCH (20:50)
[2020-04-02] MEDS: TAMSULOSIN HCL 0.4 MG CAP.ER.24H PO SCH (20:50)
[2020-04-02] MEDS ORDERED: NON-FORMULARY MEDICATION 1 EACH (Vit B Cmplx 3/FA/Vit C/Biotin (Rena-Vite Rx Tablet) 1 EAC PO SCH (21:00)
[2020-04-02 23:00] VITALS: BP 136/66
[2020-04-03 03:00] VITALS: BP 119/60
[2020-04-03 05:15] LABS: HEMATOCRIT 24.9 % (42-54); MEAN CORPUSCULAR HEMOGLOBIN 28.1 pg (27.0-33.0); MEAN CORPUSCULAR HGB CONC 30.5 g/dL (32.0-36.0); MEAN CORPUSCULAR VOLUME 92.2 fL (79-99); PLATELET COUNT (AUTO) 297 K/uL (130-400); RED CELL DISTRIBUTION WIDTH 16.7 % (11.0-15.5); WHITE BLOOD COUNT (AUTO) 10.1 K/uL (4.8-10.8)
[2020-04-03 05:47] LABS: CREATININE 2.4 mg/dL (0.5-1.5); POTASSIUM 5.1 mmol/L (3.5-5.1)
[2020-04-03] MEDS: INSULIN HUMULIN R 100 UNIT/ML 3ML SQ SCH ×4 (07:30→21:58)
[2020-04-03 08:01] LABS: ABG BASE EXCESS -10.9 mmol/L (-2.0-3.0); ABG OXYGEN SATURATION 45.7 % (95.0-99.0); ABG PCO2 25 mmHg (35-48)
[2020-04-03 08:49] VITALS: BP 139/71
[2020-04-03] MEDS ORDERED: NON-FORMULARY MEDICATION 1 EACH (Cholecalciferol (Vitamin D3) (Vitamin D3) 125 MCG) PO SCH (09:00)
[2020-04-03] MEDS ORDERED: ATORVASTATIN 40 MG TABLET PO SCH (09:00)
[2020-04-03] MEDS: ASPIRIN 81MG CHEW TAB PO SCH (09:00)
[2020-04-03] MEDS: VITAMIN D 125MCG PO SCH (09:00)
[2020-04-03] MEDS ORDERED: VITAMIN E MIXED 400 UNIT PO SCH (09:00)
[2020-04-03] MEDS ORDERED: CALCIUM CARBONATE 500 MG PO SCH (09:00)
[2020-04-03 09:24] LABS: ABG BASE EXCESS -5.3 mmol/L (-2.0-3.0); ABG OXYGEN SATURATION 98.3 % (95.0-99.0); ABG PCO2 30 mmHg (35-48)
[2020-04-03] MEDS: ASPIRIN 325 MG TABLET PO SCH (09:26)
[2020-04-03] MEDS: VITAMIN E 400 UNIT CAPSULE PO SCH (09:26)
[2020-04-03] MEDS: METOPROLOL TARTRATE 25 MG TAB PO SCH ×2 (09:26→21:54)
[2020-04-03] MEDS: TAMSULOSIN HCL 0.4 MG CAP.ER.24H PO SCH ×2 (09:26→21:54)
[2020-04-03] MEDS: CARBIDOPA-LEVODOPA 25-100 TAB PO SCH ×4 (09:26→21:54)
[2020-04-03] MEDS: CALCIUM CARB 500MG PO SCH (09:26)
[2020-04-03] MEDS: Vitamin B Complex/Vit C/Folic Acid PO SCH (09:26)
[2020-04-03 12:13] VITALS: BP 107/51
[2020-04-03] MEDS: DEXAMETHASONE SOD PHOSPHATE 4 MG/ML 1ML VIAL IVP SCH (16:22)
[2020-04-03] MEDS: ENOXAPARIN SODIUM 80 MG/0.8 ML SQ SCH ×2 (16:23→21:55)
[2020-04-03 16:43] VITALS: BP 112/52
[2020-04-03] MEDS: LEVOFLOXACIN 750 MG/D5W 150 ML 150 ML IV SCH (18:03)
[2020-04-03 20:44] VITALS: BP 123/64
[2020-04-03] MEDS: CEFTRIAXONE 1G VIAL IVP SCH (21:53)
[2020-04-03] MEDS: ATORVASTATIN 40 MG TABLET PO SCH (21:54)
[2020-04-04] VITALS (8 sets, daily range): BP systolic 91–110; BP diastolic 41–76
[2020-04-04 04:24] LABS: ABG BASE EXCESS -4.9 mmol/L (-2.0-3.0); ABG HCO3 18.9 mmol/L (21.0-28.0); ABG OXYGEN SATURATION 94.7 % (95.0-99.0); ABG PCO2 32 mmHg (35-48)
[2020-04-04] MEDS: INSULIN HUMULIN R 100 UNIT/ML 3ML SQ SCH ×4 (05:39→21:57)
[2020-04-04 06:24] LABS: HEMATOCRIT 23.2 % (42-54); MEAN CORPUSCULAR HEMOGLOBIN 28.4 pg (27.0-33.0); MEAN CORPUSCULAR HGB CONC 32.3 g/dL (32.0-36.0); MEAN CORPUSCULAR VOLUME 87.9 fL (79-99); NUCLEATED RED BLOOD CELLS 0.9 % (0.0-0.19); RED BLOOD CELL COUNT(AUTO) 2.64 MIL/uL (4.50-6.20); RED CELL DISTRIBUTION WIDTH 16.5 % (11.0-15.5); WHITE BLOOD COUNT (AUTO) 11.7 K/uL (4.8-10.8)
[2020-04-04 06:57] LABS: BILIRUBIN,TOTAL 0.8 mg/dL (0.2-1.0); CREATININE 2.7 mg/dL (0.5-1.5); POTASSIUM 5.5 mmol/L (3.5-5.1); TOTAL PROTEIN, SERUM 5.8 g/dL (6.0-8.3)
[2020-04-04] MEDS: VITAMIN D 125MCG PO SCH (09:00)
[2020-04-04] MEDS: TAMSULOSIN HCL 0.4 MG CAP.ER.24H PO SCH ×2 (09:13→21:52)
[2020-04-04] MEDS: ASPIRIN 325 MG TABLET PO SCH (09:13)
[2020-04-04] MEDS: ASPIRIN 81MG CHEW TAB PO SCH (09:13)
[2020-04-04] MEDS: VITAMIN E 400 UNIT CAPSULE PO SCH (09:13)
[2020-04-04] MEDS: CALCIUM CARB 500MG PO SCH (09:13)
[2020-04-04] MEDS: CARBIDOPA-LEVODOPA 25-100 TAB PO SCH ×4 (09:13→21:53)
[2020-04-04] MEDS: Vitamin B Complex/Vit C/Folic Acid PO SCH (09:14)
[2020-04-04] MEDS: METOPROLOL TARTRATE 25 MG TAB PO SCH ×2 (09:14→21:53)
[2020-04-04] MEDS: ENOXAPARIN SODIUM 80 MG/0.8 ML SQ SCH ×2 (09:15→21:53)
[2020-04-04 12:47] LABS: HEMATOCRIT 25.7 % (42-54); MEAN CORPUSCULAR HEMOGLOBIN 28.8 pg (27.0-33.0); MEAN CORPUSCULAR HGB CONC 31.5 g/dL (32.0-36.0); MEAN CORPUSCULAR VOLUME 91.5 fL (79-99); NUCLEATED RED BLOOD CELLS 1.3 % (0.0-0.19); PLATELET COUNT (AUTO) 266 K/uL (130-400); RED BLOOD CELL COUNT(AUTO) 2.81 MIL/uL (4.50-6.20); RED CELL DISTRIBUTION WIDTH 16.9 % (11.0-15.5); WHITE BLOOD COUNT (AUTO) 14.2 K/uL (4.8-10.8)
[2020-04-04 13:18] LABS: ALBUMIN 2.2 g/dL (3.5-5.0); BILIRUBIN,TOTAL 1.1 mg/dL (0.2-1.0); CREATININE 3.1 mg/dL (0.5-1.5); TOTAL PROTEIN, SERUM 6.5 g/dL (6.0-8.3)
[2020-04-04 13:29] LABS: LYMPHOCYTES % (MANUAL) 2 % (22-44); MAN.DIFF COMMENT-IMPRESSION MANUAL DIFFERENTIAL; PLATELET MORPHOLOGY COMMENT ADEQUATE; SEGMENTED NEUTROPHILS % 98 % (40-70)
[2020-04-04 13:33] LABS: POTASSIUM 6.3 mmol/L (3.5-5.1)
[2020-04-04 15:09] LABS: ABG HCO3 14.5 mmol/L (21.0-28.0); ABG OXYGEN SATURATION 88.4 % (95.0-99.0); ABG PCO2 31 mmHg (35-48)
[2020-04-04] MEDS ORDERED: CALCIUM GLUC 1GM/10ML VIAL IV SCH (16:30)
[2020-04-04] MEDS ORDERED: CALCIUM GLUC 1GM 1 GM in 0.9%NACL 100ML 100 ML IV SCH ×2 (16:45→17:30)
[2020-04-04] MEDS: DEXAMETHASONE SOD PHOSPHATE 4 MG/ML 1ML VIAL IVP SCH (17:08)
[2020-04-04] MEDS ORDERED: KAYEXALATE 15GM/60ML RC SCH ×2 (17:45→21:30)
[2020-04-04] MEDS ORDERED: SODIUM BICARB 50MEQ 50ML VIAL IV ONE (17:45)
[2020-04-04] MEDS: CEFTRIAXONE 1G VIAL IVP SCH (20:38)
[2020-04-05 03:13] VITALS: BP 103/75
[2020-04-05 05:45] LABS: HEMATOCRIT 22.1 % (42-54); LYMPHOCYTES % (AUTO) 2.2 % (21.0-51.0); MEAN CORPUSCULAR HEMOGLOBIN 28.1 pg (27.0-33.0); MEAN CORPUSCULAR HGB CONC 32.1 g/dL (32.0-36.0); MEAN CORPUSCULAR VOLUME 87.4 fL (79-99); MONOCYTES % (AUTO) 2.4 % (3.0-13.0); NEUTROPHILS % (AUTO) 95.1 % (40.0-77.0); NUCLEATED RED BLOOD CELLS 1.1 % (0.0-0.19); PLATELET COUNT (AUTO) 199 K/uL (130-400); RED BLOOD CELL COUNT(AUTO) 2.53 MIL/uL (4.50-6.20); RED CELL DISTRIBUTION WIDTH 16.7 % (11.0-15.5); WHITE BLOOD COUNT (AUTO) 9.6 K/uL (4.8-10.8)
[2020-04-05 06:06] LABS: B-TYPE NATRIURETIC PEPTIDE 1020 pg/mL (0-100)
[2020-04-05 06:09] LABS: CREATININE 3.3 mg/dL (0.5-1.5); MAGNESIUM 2.8 mg/dL (1.80-2.40); POTASSIUM 4.8 mmol/L (3.5-5.1); TOTAL PROTEIN, SERUM 5.7 g/dL (6.0-8.3)
[2020-04-05] MEDS: INSULIN HUMULIN R 100 UNIT/ML 3ML SQ SCH ×4 (07:03→20:39)
[2020-04-05 08:21] VITALS: BP 97/57
[2020-04-05] MEDS: TAMSULOSIN HCL 0.4 MG CAP.ER.24H PO SCH ×2 (08:54→20:34)
[2020-04-05] MEDS: VITAMIN E 400 UNIT CAPSULE PO SCH (08:54)
[2020-04-05] MEDS: ASPIRIN 81MG CHEW TAB PO SCH (08:55)
[2020-04-05] MEDS: CARBIDOPA-LEVODOPA 25-100 TAB PO SCH ×4 (08:55→20:34)
[2020-04-05] MEDS: METOPROLOL TARTRATE 25 MG TAB PO SCH ×2 (08:56→20:34)
[2020-04-05] MEDS: Vitamin B Complex/Vit C/Folic Acid PO SCH (08:56)
[2020-04-05] MEDS: VITAMIN D 125MCG PO SCH (08:56)
[2020-04-05] MEDS: ASPIRIN 325 MG TABLET PO SCH (08:57)
[2020-04-05] MEDS: ENOXAPARIN SODIUM 80 MG/0.8 ML SQ SCH ×2 (08:58→20:35)
[2020-04-05] MEDS: CALCIUM CARB 500MG PO SCH (12:05)
[2020-04-05 12:16] VITALS: BP 100/52
[2020-04-05 13:58] LABS: APPEARANCE,URINE CLOUDY (CLEAR); BILIRUBIN,URINE NEGATIVE (NEGATIVE); COLOR,URINE YELLOW (YELLOW); GLUCOSE, URINE (UA) NEGATIVE (NEGATIVE); KETONES,URINE NEGATIVE (NEGATIVE); LEUKOCYTE ESTERASE ,URINE NEGATIVE (NEGATIVE); NITRATE,URINE NEGATIVE (NEGATIVE); OCCULT BLOOD,URINE MODERATE (NEGATIVE); PROTEIN,URINE 30 mg/dL (NEGATIVE); UROBILINOGEN,URINE 0.2 mg/dL (0.2-1.0)
[2020-04-05 14:05] LABS: BACTERIA,URINE Few /HPF (None Seen); RBC,URINE 0-1 /HPF (0-1); SQUAMOUS EPITHELIAL CELL,UR Few /HPF (0-2); WBC,URINE 0-1 /HPF (0-1)
[2020-04-05 14:06] LABS: AMORPHOUS SEDIMENT,UR Few /LPF (None Seen)
[2020-04-05] MEDS: DEXAMETHASONE SOD PHOSPHATE 4 MG/ML 1ML VIAL IVP SCH ×2 (16:00→16:59)
[2020-04-05 16:08] VITALS: BP 115/56
[2020-04-05] MEDS: LEVOFLOXACIN 750 MG/D5W 150 ML 150 ML IV SCH (18:19)
[2020-04-05 19:58] VITALS: BP 124/65
[2020-04-05] MEDS: CEFTRIAXONE 1G VIAL IVP SCH (20:33)
[2020-04-05 23:59] VITALS: BP 117/53
[2020-04-06] VITALS (42 sets, daily range): BP systolic 92–162; BP diastolic 38–92
[2020-04-06] MEDS ORDERED: PROPOFOL 1000 MG/100 ML 100 ML IV ONE ×2 (03:14→08:40)
[2020-04-06] MEDS ORDERED: NOREPINEPHRIN 4MG/NS 250ML 250 ML IV ONE ×2 (03:18→20:39)
[2020-04-06 03:33] LABS: BASOPHILS % (AUTO) 0.1 % (0.0-5.0); HEMATOCRIT 25.1 % (42-54); LYMPHOCYTES % (AUTO) 11.9 % (21.0-51.0); MEAN CORPUSCULAR HGB CONC 31.5 g/dL (32.0-36.0); MONOCYTES % (AUTO) 3.9 % (3.0-13.0); NEUTROPHILS % (AUTO) 82.9 % (40.0-77.0); NUCLEATED RED BLOOD CELLS 3.9 % (0.0-0.19); PLATELET COUNT (AUTO) 227 K/uL (130-400); RED BLOOD CELL COUNT(AUTO) 2.82 MIL/uL (4.50-6.20); RED CELL DISTRIBUTION WIDTH 16.9 % (11.0-15.5); WHITE BLOOD COUNT (AUTO) 13.5 K/uL (4.8-10.8)
[2020-04-06 03:49] LABS: ABG BASE EXCESS -8.2 mmol/L (-2.0-3.0); ABG HCO3 18.8 mmol/L (21.0-28.0); ABG OXYGEN SATURATION 98.1 % (95.0-99.0); ABG PCO2 46 mmHg (35-48)
[2020-04-06 03:50] LABS: BILIRUBIN,DIRECT 0.8 mg/dL (0.0-0.3); BILIRUBIN,TOTAL 1.2 mg/dL (0.2-1.0); CREATININE 3.8 mg/dL (0.5-1.5); PHOSPHORUS 6.7 mg/dL (2.5-4.9); POTASSIUM 4.1 mmol/L (3.5-5.1); URIC ACID 10.5 mg/dL (2.6-7.2)
[2020-04-06 04:46] LABS: % IRON SATURATION 56.5 % (30-44)
[2020-04-06 05:01] LABS: ABG BASE EXCESS -3.3 mmol/L (-2.0-3.0); ABG HCO3 22.4 mmol/L (21.0-28.0); ABG OXYGEN SATURATION 99.2 % (95.0-99.0); ABG PCO2 43 mmHg (35-48)
[2020-04-06] MEDS: INSULIN HUMULIN R 100 UNIT/ML 3ML SQ SCH ×4 (06:53→23:31)
[2020-04-06] MEDS: METOPROLOL TARTRATE 25 MG TAB PO SCH ×2 (09:00→23:28)
[2020-04-06] MEDS: ASPIRIN 81MG CHEW TAB PO SCH (09:00)
[2020-04-06] MEDS: VITAMIN D 125MCG PO SCH (09:00)
[2020-04-06] MEDS: CALCIUM CARB 500MG PO SCH (10:01)
[2020-04-06] MEDS: CARBIDOPA-LEVODOPA 25-100 TAB PO SCH ×4 (10:01→23:26)
[2020-04-06] MEDS: Vitamin B Complex/Vit C/Folic Acid PO SCH (10:01)
[2020-04-06] MEDS: TAMSULOSIN HCL 0.4 MG CAP.ER.24H PO SCH (10:01)
[2020-04-06] MEDS: VITAMIN E 400 UNIT CAPSULE PO SCH (10:01)
[2020-04-06] MEDS: ASPIRIN 325 MG TABLET PO SCH (10:01)
[2020-04-06] MEDS: ENOXAPARIN SODIUM 80 MG/0.8 ML SQ SCH ×2 (10:02→23:29)
[2020-04-06] MEDS ORDERED: FENTANYL CITRATE PF 0.05 MG/ML 1,000 MCG in 0.9%NACL 100ML 100 ML IVPB PRN (10:45)
[2020-04-06] MEDS ORDERED: FENTANYL 2500MCG+NS 250ML 250 ML IV ONE ×2 (11:01→20:28)
[2020-04-06] MEDS: MIDAZOLAM 100MG-0.9% NS 100ML 50 ML IV PRN (11:32)
[2020-04-06] MEDS: CHLORHEXIDINE GLUCONATE 473 ML MOUTHWASH MM SCH ×3 (12:24→22:45)
[2020-04-06] MEDS: ARTIFICAL TEARS SOL 15 ML OU SCH ×2 (12:24→15:45)
[2020-04-06 12:45] LABS: INR 1.44 (0.85-1.15); PROTHROMBIN TIME 14.9 SEC (9.6-11.6)
[2020-04-06] MEDS: DEXAMETHASONE SOD PHOSPHATE 4 MG/ML 1ML VIAL IVP SCH (15:45)
[2020-04-06] MEDS: CEFTRIAXONE 1G VIAL IVP SCH (23:24)
[2020-04-07] VITALS (63 sets, daily range): BP systolic 92–167; BP diastolic 33–77
[2020-04-07] MEDS: ARTIFICAL TEARS SOL 15 ML OU SCH ×5 (01:27→22:45)
[2020-04-07] MEDS: TAMSULOSIN HCL 0.4 MG CAP.ER.24H PO SCH ×2 (01:27→10:03)
[2020-04-07 04:21] LABS: ABG BASE EXCESS -0.4 mmol/L (-2.0-3.0); ABG OXYGEN SATURATION 95.4 % (95.0-99.0); ABG PCO2 44 mmHg (35-48)
[2020-04-07] MEDS: CHLORHEXIDINE GLUCONATE 473 ML MOUTHWASH MM SCH ×4 (04:45→22:45)
[2020-04-07 05:41] LABS: BASOPHILS % (AUTO) 0.1 % (0.0-5.0); HEMATOCRIT 23.7 % (42-54); LYMPHOCYTES % (AUTO) 1.8 % (21.0-51.0); MEAN CORPUSCULAR HEMOGLOBIN 27.9 pg (27.0-33.0); MEAN CORPUSCULAR HGB CONC 32.1 g/dL (32.0-36.0); MEAN CORPUSCULAR VOLUME 87.1 fL (79-99); NEUTROPHILS % (AUTO) 94.6 % (40.0-77.0); NUCLEATED RED BLOOD CELLS 1.1 % (0.0-0.19); PLATELET COUNT (AUTO) 188 K/uL (130-400); RED BLOOD CELL COUNT(AUTO) 2.72 MIL/uL (4.50-6.20); RED CELL DISTRIBUTION WIDTH 16.8 % (11.0-15.5); WHITE BLOOD COUNT (AUTO) 11.4 K/uL (4.8-10.8)
[2020-04-07 06:07] LABS: CREATININE 3.8 mg/dL (0.5-1.5); MAGNESIUM 2.9 mg/dL (1.80-2.40); PHOSPHORUS 6.4 mg/dL (2.5-4.9); POTASSIUM 4.4 mmol/L (3.5-5.1)
[2020-04-07] MEDS: INSULIN HUMULIN R 100 UNIT/ML 3ML SQ SCH ×3 (06:31→17:52)
[2020-04-07] MEDS: METOPROLOL TARTRATE 25 MG TAB PO SCH (09:00)
[2020-04-07] MEDS: VITAMIN D 125MCG PO SCH (09:00)
[2020-04-07 09:13] LABS: HEPATITIS A ANTIBODY IGM Negative (Negative); HEPATITIS B CORE IGM Negative (Negative); HEPATITIS Bs ANTIGEN SCREEN P Negative (Negative)
[2020-04-07] MEDS: ASPIRIN 81MG CHEW TAB PO SCH (10:03)
[2020-04-07] MEDS: VITAMIN E 400 UNIT CAPSULE PO SCH (10:03)
[2020-04-07] MEDS: CALCIUM CARB 500MG PO SCH (10:03)
[2020-04-07] MEDS: Vitamin B Complex/Vit C/Folic Acid PO SCH (10:03)
[2020-04-07] MEDS: ENOXAPARIN SODIUM 80 MG/0.8 ML SQ SCH (10:04)
[2020-04-07] MEDS: CARBIDOPA-LEVODOPA 25-100 TAB PO SCH ×3 (10:04→17:04)
[2020-04-07] MEDS ORDERED: DOPAMINE 800MG/D5 250ML 250 ML IV PRN (10:30)
[2020-04-07] MEDS: DEXAMETHASONE SOD PHOSPHATE 4 MG/ML 1ML VIAL IVP SCH (17:03)
[2020-04-07] MEDS: LEVOFLOXACIN 750 MG/D5W 150 ML 150 ML IV SCH (17:04)
[2020-04-07] MEDS: MIDAZOLAM 100MG-0.9% NS 100ML 50 ML IV PRN (17:05)
[2020-04-08] VITALS (37 sets, daily range): BP systolic 106–150; BP diastolic 45–63
[2020-04-08] MEDS: CEFTRIAXONE 1G VIAL IVP SCH ×2 (00:52→20:56)
[2020-04-08] MEDS: ENOXAPARIN SODIUM 80 MG/0.8 ML SQ SCH ×3 (00:53→21:03)
[2020-04-08] MEDS: METOPROLOL TARTRATE 25 MG TAB PO SCH ×3 (00:53→20:57)
[2020-04-08] MEDS: CARBIDOPA-LEVODOPA 25-100 TAB PO SCH ×5 (00:53→20:59)
[2020-04-08] MEDS: TAMSULOSIN HCL 0.4 MG CAP.ER.24H PO SCH ×3 (00:53→20:57)
[2020-04-08] MEDS: INSULIN HUMULIN R 100 UNIT/ML 3ML SQ SCH ×5 (00:59→22:26)
[2020-04-08 03:42] LABS: ABG BASE EXCESS 0.6 mmol/L (-2.0-3.0); ABG HCO3 25.3 mmol/L (21.0-28.0); ABG OXYGEN SATURATION 87.7 % (95.0-99.0); ABG PCO2 41 mmHg (35-48)
[2020-04-08] MEDS: CHLORHEXIDINE GLUCONATE 473 ML MOUTHWASH MM SCH ×4 (04:45→23:18)
[2020-04-08] MEDS: ARTIFICAL TEARS SOL 15 ML OU SCH ×4 (04:45→23:18)
[2020-04-08 04:59] LABS: BASOPHILS % (AUTO) 0.1 % (0.0-5.0); HEMATOCRIT 25.1 % (42-54); LYMPHOCYTES % (AUTO) 1.3 % (21.0-51.0); MEAN CORPUSCULAR HGB CONC 32.3 g/dL (32.0-36.0); MEAN CORPUSCULAR VOLUME 86.9 fL (79-99); MONOCYTES % (AUTO) 2.2 % (3.0-13.0); NEUTROPHILS % (AUTO) 95.7 % (40.0-77.0); NUCLEATED RED BLOOD CELLS 0.9 % (0.0-0.19); PLATELET COUNT (AUTO) 186 K/uL (130-400); RED BLOOD CELL COUNT(AUTO) 2.89 MIL/uL (4.50-6.20); RED CELL DISTRIBUTION WIDTH 16.8 % (11.0-15.5); WHITE BLOOD COUNT (AUTO) 14.9 K/uL (4.8-10.8)
[2020-04-08 05:40] LABS: ALBUMIN 1.6 g/dL (3.5-5.0); BILIRUBIN,DIRECT 0.5 mg/dL (0.0-0.3); BILIRUBIN,TOTAL 0.8 mg/dL (0.2-1.0); CREATININE 3.5 mg/dL (0.5-1.5); MAGNESIUM 2.7 mg/dL (1.80-2.40); PHOSPHORUS 4.7 mg/dL (2.5-4.9); POTASSIUM 4.5 mmol/L (3.5-5.1); TOTAL PROTEIN, SERUM 5.3 g/dL (6.0-8.3)
[2020-04-08] MEDS: ASPIRIN 81MG CHEW TAB PO SCH (08:54)
[2020-04-08] MEDS: CALCIUM CARB 500MG PO SCH (08:55)
[2020-04-08] MEDS: VITAMIN E 400 UNIT CAPSULE PO SCH (08:55)
[2020-04-08] MEDS: Vitamin B Complex/Vit C/Folic Acid PO SCH (08:55)
[2020-04-08] MEDS: VITAMIN D 125MCG PO SCH (08:56)
[2020-04-08] MEDS: MIDAZOLAM 100MG-0.9% NS 100ML 50 ML IV PRN (12:22)
[2020-04-08] MEDS: 0.9%NACL 1000ML 1,000 ML IV SCH (16:49)
[2020-04-08] MEDS: DEXAMETHASONE SOD PHOSPHATE 4 MG/ML 1ML VIAL IVP SCH (16:49)
[2020-04-08] MEDS: ACETAMINOPHEN 325 MG TAB PO PRN (21:21)
[2020-04-09] VITALS (24 sets, daily range): BP systolic 104–178; BP diastolic 42–69
[2020-04-09 03:42] LABS: ABG BASE EXCESS 2.4 mmol/L (-2.0-3.0); ABG HCO3 27.4 mmol/L (21.0-28.0); ABG OXYGEN SATURATION 96.6 % (95.0-99.0); ABG PCO2 44 mmHg (35-48)
[2020-04-09 04:16] LABS: HEMATOCRIT 28.1 % (42-54); MEAN CORPUSCULAR HGB CONC 31.3 g/dL (32.0-36.0); MEAN CORPUSCULAR VOLUME 89.5 fL (79-99); NUCLEATED RED BLOOD CELLS 0.5 % (0.0-0.19); RED BLOOD CELL COUNT(AUTO) 3.14 MIL/uL (4.50-6.20); RED CELL DISTRIBUTION WIDTH 17.5 % (11.0-15.5); WHITE BLOOD COUNT (AUTO) 12.9 K/uL (4.8-10.8)
[2020-04-09 04:28] LABS: ALBUMIN 1.5 g/dL (3.5-5.0); BILIRUBIN,DIRECT 0.5 mg/dL (0.0-0.3); BILIRUBIN,TOTAL 0.7 mg/dL (0.2-1.0); CREATININE 3.4 mg/dL (0.5-1.5); MAGNESIUM 2.8 mg/dL (1.80-2.40); PHOSPHORUS 5.6 mg/dL (2.5-4.9); TOTAL PROTEIN, SERUM 5.1 g/dL (6.0-8.3)
[2020-04-09] MEDS: ARTIFICAL TEARS SOL 15 ML OU SCH ×4 (06:17→22:34)
[2020-04-09] MEDS: CHLORHEXIDINE GLUCONATE 473 ML MOUTHWASH MM SCH ×4 (06:17→22:34)
[2020-04-09] MEDS: INSULIN HUMULIN R 100 UNIT/ML 3ML SQ SCH ×4 (06:18→22:22)
[2020-04-09] MEDS: 0.9%NACL 1000ML 1,000 ML IV SCH ×2 (07:28→08:56)
[2020-04-09] MEDS: ASPIRIN 81MG CHEW TAB PO SCH (08:52)
[2020-04-09] MEDS: TAMSULOSIN HCL 0.4 MG CAP.ER.24H PO SCH ×2 (08:52→20:04)
[2020-04-09] MEDS: ENOXAPARIN SODIUM 80 MG/0.8 ML SQ SCH ×2 (08:52→20:09)
[2020-04-09] MEDS: Vitamin B Complex/Vit C/Folic Acid PO SCH (08:53)
[2020-04-09] MEDS: VITAMIN E 400 UNIT CAPSULE PO SCH (08:53)
[2020-04-09] MEDS: METOPROLOL TARTRATE 25 MG TAB PO SCH ×2 (08:53→20:12)
[2020-04-09] MEDS: CALCIUM CARB 500MG PO SCH (08:53)
[2020-04-09] MEDS: CARBIDOPA-LEVODOPA 25-100 TAB PO SCH ×4 (08:53→20:06)
[2020-04-09] MEDS: VITAMIN D 125MCG PO SCH (08:54)
[2020-04-09] MEDS: DEXAMETHASONE SOD PHOSPHATE 4 MG/ML 1ML VIAL IVP SCH (17:25)
[2020-04-09] MEDS: LEVOFLOXACIN 750 MG/D5W 150 ML 150 ML IV SCH (17:25)
[2020-04-09] MEDS: CEFTRIAXONE 1G VIAL IVP SCH (20:04)
[2020-04-09] MEDS: METOCLOPRAMIDE 10 MG/2 ML VIAL IVP SCH (20:04)
[2020-04-09] MEDS: DOCUSATE NA 100MG/10ML UDCUP PO SCH (20:04)
[2020-04-10] VITALS (24 sets, daily range): BP systolic 91–151; BP diastolic 40–81
[2020-04-10] MEDS: 0.9%NACL 1000ML 1,000 ML IV SCH ×3 (03:30→23:30)
[2020-04-10 03:56] LABS: BASOPHILS % (AUTO) 0.1 % (0.0-5.0); LYMPHOCYTES % (AUTO) 2.8 % (21.0-51.0); MEAN CORPUSCULAR HEMOGLOBIN 28.1 pg (27.0-33.0); MEAN CORPUSCULAR HGB CONC 31.4 g/dL (32.0-36.0); MEAN CORPUSCULAR VOLUME 89.5 fL (79-99); MONOCYTES % (AUTO) 1.8 % (3.0-13.0); NEUTROPHILS % (AUTO) 94.4 % (40.0-77.0); NUCLEATED RED BLOOD CELLS 0.3 % (0.0-0.19); PLATELET COUNT (AUTO) 162 K/uL (130-400); RED BLOOD CELL COUNT(AUTO) 3.13 MIL/uL (4.50-6.20); RED CELL DISTRIBUTION WIDTH 18.5 % (11.0-15.5); WHITE BLOOD COUNT (AUTO) 15.1 K/uL (4.8-10.8)
[2020-04-10 04:12] LABS: ALBUMIN 1.4 g/dL (3.5-5.0); BILIRUBIN,DIRECT 0.3 mg/dL (0.0-0.3); BILIRUBIN,TOTAL 0.8 mg/dL (0.2-1.0); CREATININE 3.3 mg/dL (0.5-1.5); MAGNESIUM 3.4 mg/dL (1.80-2.40); PHOSPHORUS 3.5 mg/dL (2.5-4.9); POTASSIUM 5.4 mmol/L (3.5-5.1); TOTAL PROTEIN, SERUM 4.9 g/dL (6.0-8.3)
[2020-04-10] MEDS: ARTIFICAL TEARS SOL 15 ML OU SCH ×4 (05:46→23:03)
[2020-04-10] MEDS: CHLORHEXIDINE GLUCONATE 473 ML MOUTHWASH MM SCH ×4 (05:46→23:03)
[2020-04-10] MEDS: INSULIN HUMULIN R 100 UNIT/ML 3ML SQ SCH ×4 (06:04→21:00)
[2020-04-10] MEDS: METOPROLOL TARTRATE 25 MG TAB PO SCH ×2 (09:00→20:14)
[2020-04-10] MEDS: VITAMIN D 125MCG PO SCH (09:00)
[2020-04-10] MEDS: METOCLOPRAMIDE 10 MG/2 ML VIAL IVP SCH ×2 (09:16→17:39)
[2020-04-10] MEDS: TAMSULOSIN HCL 0.4 MG CAP.ER.24H PO SCH ×2 (09:17→20:14)
[2020-04-10] MEDS: DOCUSATE NA 100MG/10ML UDCUP PO SCH ×2 (09:17→20:14)
[2020-04-10] MEDS: ASPIRIN 81MG CHEW TAB PO SCH (09:17)
[2020-04-10] MEDS: Vitamin B Complex/Vit C/Folic Acid PO SCH (09:18)
[2020-04-10] MEDS: CALCIUM CARB 500MG PO SCH (09:18)
[2020-04-10] MEDS: SENNOSIDES 8.6 MG TABLET PO SCH (09:18)
[2020-04-10] MEDS: CARBIDOPA-LEVODOPA 25-100 TAB PO SCH ×4 (09:18→20:14)
[2020-04-10] MEDS: ENOXAPARIN SODIUM 80 MG/0.8 ML SQ SCH (09:19)
[2020-04-10] MEDS: VITAMIN E 400 UNIT CAPSULE PO SCH (09:19)
[2020-04-10] MEDS: ACETAMINOPHEN 325 MG TAB PO PRN (09:34)
[2020-04-10] MEDS ORDERED: LACTULOSE 20 GM/30 ML UDCUP NG PRN (09:45)
[2020-04-10 11:55] LABS: APPEARANCE,URINE Cloudy (CLEAR); BILIRUBIN,URINE Negative (NEGATIVE); COLOR,URINE Yellow (YELLOW); GLUCOSE, URINE (UA) Negative (NEGATIVE); KETONES,URINE Negative (NEGATIVE); LEUKOCYTE ESTERASE ,URINE Small (NEGATIVE); NITRATE,URINE Negative (NEGATIVE); OCCULT BLOOD,URINE Trace (NEGATIVE); PROTEIN,URINE Negative (NEGATIVE); UROBILINOGEN,URINE 0.2 mg/dL (0.2-1.0)
[2020-04-10 12:16] LABS: BACTERIA,URINE Few /HPF (None Seen); RBC,URINE 0-1 /HPF (0-1); WBC,URINE 0-1 /HPF (0-1)
[2020-04-10 12:17] LABS: SQUAMOUS EPITHELIAL CELL,UR Rare /HPF (0-2); YEAST,URINE BUDDING Moderate /HPF (None Seen)
[2020-04-10] MEDS ORDERED: CALCIUM GLUC 1GM/10ML VIAL IV SCH (14:45)
[2020-04-10] MEDS ORDERED: KAYEXALATE 15GM/60ML PO SCH (14:45)
[2020-04-10] MEDS ORDERED: CALCIUM GLUC 1GM 1 GM in 0.9%NACL 100ML 100 ML IV SCH (15:00)
[2020-04-10] MEDS ORDERED: VANCOMYCIN PROTOCOL PER PHARMACY IV SCH (15:30)
[2020-04-10] MEDS ORDERED: COMPOUND IV REFRIGERATED 1 EACH IVSOLN MISC PRN (16:45)
[2020-04-10] MEDS: MIDAZOLAM 100MG-0.9% NS 100ML 50 ML IV PRN (16:51)
[2020-04-10] MEDS ORDERED: VANCOMYCIN 1G 1.25 GM in 0.9% NACL 250ML 250 ML IV SCH (17:00)
[2020-04-10] MEDS: MEROPENEM 1 GM VIAL IVP SCH (17:39)
[2020-04-10] MEDS: DEXAMETHASONE SOD PHOSPHATE 4 MG/ML 1ML VIAL IVP SCH (17:39)
[2020-04-10] MEDS: CEFTRIAXONE 1G VIAL IVP SCH (20:14)
[2020-04-11] VITALS (37 sets, daily range): BP systolic 106–148; BP diastolic 44–69
[2020-04-11] MEDS: 0.9%NACL 1000ML 1,000 ML IV SCH ×3 (02:30→22:30)
[2020-04-11 03:26] LABS: ABG BASE EXCESS -1.8 mmol/L (-2.0-3.0); ABG HCO3 23.3 mmol/L (21.0-28.0); ABG OXYGEN SATURATION 94.4 % (95.0-99.0); ABG PCO2 41 mmHg (35-48)
[2020-04-11] MEDS: FENTANYL 2500MCG+NS 250ML 250 ML IV PRN (03:26)
[2020-04-11 04:38] LABS: HEMATOCRIT 26.5 % (42-54); MEAN CORPUSCULAR HEMOGLOBIN 27.6 pg (27.0-33.0); MEAN CORPUSCULAR HGB CONC 30.6 g/dL (32.0-36.0); MEAN CORPUSCULAR VOLUME 90.1 fL (79-99); NUCLEATED RED BLOOD CELLS 0.3 % (0.0-0.19); RED BLOOD CELL COUNT(AUTO) 2.94 MIL/uL (4.50-6.20); RED CELL DISTRIBUTION WIDTH 19.2 % (11.0-15.5); WHITE BLOOD COUNT (AUTO) 16.9 K/uL (4.8-10.8)
[2020-04-11] MEDS: MEROPENEM 1 GM VIAL IVP SCH ×3 (04:47→16:38)
[2020-04-11] MEDS: METOCLOPRAMIDE 10 MG/2 ML VIAL IVP SCH ×4 (04:48→17:59)
[2020-04-11 05:03] LABS: CREATININE 3.4 mg/dL (0.5-1.5); POTASSIUM 4.6 mmol/L (3.5-5.1)
[2020-04-11] MEDS: ARTIFICAL TEARS SOL 15 ML OU SCH ×4 (05:49→23:04)
[2020-04-11] MEDS: CHLORHEXIDINE GLUCONATE 473 ML MOUTHWASH MM SCH ×4 (05:49→23:03)
[2020-04-11] MEDS: VITAMIN D 125MCG PO SCH (09:00)
[2020-04-11] MEDS ORDERED: ASCORBIC ACID 500 MG TAB ONE (10:29)
[2020-04-11] MEDS: Vitamin B Complex/Vit C/Folic Acid PO SCH (10:31)
[2020-04-11] MEDS: DOCUSATE NA 100MG/10ML UDCUP PO SCH ×2 (10:31→22:40)
[2020-04-11] MEDS: ASPIRIN 81MG CHEW TAB PO SCH (10:31)
[2020-04-11] MEDS: SENNOSIDES 8.6 MG TABLET PO SCH (10:32)
[2020-04-11] MEDS: METOPROLOL TARTRATE 25 MG TAB PO SCH ×2 (10:32→21:00)
[2020-04-11] MEDS: TAMSULOSIN HCL 0.4 MG CAP.ER.24H PO SCH ×2 (10:33→22:40)
[2020-04-11] MEDS: INSULIN HUMULIN R 100 UNIT/ML 3ML SQ SCH ×2 (10:35→18:01)
[2020-04-11] MEDS: ENOXAPARIN SODIUM 80 MG/0.8 ML SQ SCH (10:38)
[2020-04-11] MEDS: CARBIDOPA-LEVODOPA 25-100 TAB PO SCH ×4 (10:51→22:40)
[2020-04-11] MEDS: VITAMIN E 400 UNIT CAPSULE PO SCH (10:52)
[2020-04-11] MEDS: CALCIUM CARB 500MG PO SCH (11:14)
[2020-04-11] MEDS ORDERED: CALCIUM GLUC 1GM/10ML VIAL IV SCH (12:45)
[2020-04-11] MEDS ORDERED: CALCIUM GLUC 1GM 1 GM in 0.9%NACL 100ML 100 ML IV SCH (13:00)
[2020-04-11] MEDS: DEXAMETHASONE SOD PHOSPHATE 4 MG/ML 1ML VIAL IVP SCH (16:39)
[2020-04-11] MEDS: LEVOFLOXACIN 750 MG/D5W 150 ML 150 ML IV SCH (17:59)
[2020-04-11] MEDS: CEFTRIAXONE 1G VIAL IVP SCH (22:40)
[2020-04-12] VITALS (46 sets, daily range): BP systolic 99–149; BP diastolic 38–107
[2020-04-12] MEDS: MEROPENEM 1 GM VIAL IVP SCH ×3 (01:14→23:47)
[2020-04-12] MEDS: INSULIN HUMULIN R 100 UNIT/ML 3ML SQ SCH ×4 (01:14→18:18)
[2020-04-12] MEDS: METOCLOPRAMIDE 10 MG/2 ML VIAL IVP SCH ×4 (01:14→18:15)
[2020-04-12] MEDS: CHLORHEXIDINE GLUCONATE 473 ML MOUTHWASH MM SCH ×4 (03:24→23:47)
[2020-04-12 04:34] LABS: BASOPHILS % (AUTO) 0.2 % (0.0-5.0); LYMPHOCYTES % (AUTO) 1.3 % (21.0-51.0); MEAN CORPUSCULAR HEMOGLOBIN 28.5 pg (27.0-33.0); MEAN CORPUSCULAR HGB CONC 30.7 g/dL (32.0-36.0); MEAN CORPUSCULAR VOLUME 92.8 fL (79-99); NEUTROPHILS % (AUTO) 95.8 % (40.0-77.0); NUCLEATED RED BLOOD CELLS 0.2 % (0.0-0.19); PLATELET COUNT (AUTO) 154 K/uL (130-400); RED BLOOD CELL COUNT(AUTO) 2.91 MIL/uL (4.50-6.20); RED CELL DISTRIBUTION WIDTH 19.9 % (11.0-15.5); WHITE BLOOD COUNT (AUTO) 26.5 K/uL (4.8-10.8)
[2020-04-12 04:49] LABS: ALBUMIN 1.3 g/dL (3.5-5.0); BILIRUBIN,TOTAL 0.6 mg/dL (0.2-1.0); CREATININE 3.5 mg/dL (0.5-1.5); MAGNESIUM 2.6 mg/dL (1.80-2.40); PHOSPHORUS 4.5 mg/dL (2.5-4.9); POTASSIUM 5.1 mmol/L (3.5-5.1); TOTAL PROTEIN, SERUM 4.9 g/dL (6.0-8.3)
[2020-04-12] MEDS: ARTIFICAL TEARS SOL 15 ML OU SCH ×4 (05:57→23:47)
[2020-04-12] MEDS: RASAGILINE MESYLATE 1 MG PO SCH (07:30)
[2020-04-12] MEDS: METOPROLOL TARTRATE 25 MG TAB PO SCH ×2 (09:00→21:00)
[2020-04-12] MEDS: VITAMIN D 125MCG PO SCH (09:00)
[2020-04-12] MEDS: ENOXAPARIN SODIUM 80 MG/0.8 ML SQ SCH (09:00)
[2020-04-12] MEDS ORDERED: RENAL DOSE IV PRN (09:30)
[2020-04-12] MEDS: CALCIUM CARB 500MG PO SCH (10:59)
[2020-04-12] MEDS: VITAMIN E 400 UNIT CAPSULE PO SCH (10:59)
[2020-04-12] MEDS: Vitamin B Complex/Vit C/Folic Acid PO SCH (11:00)
[2020-04-12] MEDS: ASPIRIN 81MG CHEW TAB PO SCH (11:00)
[2020-04-12] MEDS: DOCUSATE NA 100MG/10ML UDCUP PO SCH ×2 (11:00→23:47)
[2020-04-12] MEDS: CARBIDOPA-LEVODOPA 25-100 TAB PO SCH ×4 (11:00→21:46)
[2020-04-12] MEDS: SENNOSIDES 8.6 MG TABLET PO SCH (11:01)
[2020-04-12] MEDS: TAMSULOSIN HCL 0.4 MG CAP.ER.24H PO SCH ×2 (11:01→21:46)
[2020-04-12] MEDS: FLUCONAZOLE 400 MG/NS 200 ML 200 ML IV SCH (11:13)
[2020-04-12] MEDS: LINEZOLID 600 MG/ISO-OSM 300 ML IV SCH ×2 (11:13→21:46)
[2020-04-12] MEDS: MIDAZOLAM 100MG-0.9% NS 100ML 100 ML IV PRN (13:04)
[2020-04-12] MEDS: FENTANYL 2500MCG+NS 250ML 250 ML IV PRN (13:08)
[2020-04-12] MEDS: DEXAMETHASONE SOD PHOSPHATE 4 MG/ML 1ML VIAL IVP SCH (16:18)
[2020-04-12] MEDS: 0.9%NACL 1000ML 1,000 ML IV SCH ×2 (18:30→23:27)
[2020-04-12] MEDS ORDERED: ALBUMIN (HUMAN) 25% 100 ML IV ONE (23:32)
[2020-04-13] VITALS (33 sets, daily range): BP systolic 91–164; BP diastolic 39–69
[2020-04-13] MEDS: METOCLOPRAMIDE 10 MG/2 ML VIAL IVP SCH ×4 (00:30→17:40)
[2020-04-13] MEDS: INSULIN HUMULIN R 100 UNIT/ML 3ML SQ SCH ×5 (00:39→21:52)
[2020-04-13] MEDS ORDERED: ALBUMIN (HUMAN) 25% 100 ML IV ONE (01:39)
[2020-04-13] MEDS: CHLORHEXIDINE GLUCONATE 473 ML MOUTHWASH MM SCH ×4 (03:20→22:45)
[2020-04-13] MEDS: ARTIFICAL TEARS SOL 15 ML OU SCH ×4 (03:21→22:45)
[2020-04-13 06:04] LABS: BILIRUBIN,TOTAL 0.6 mg/dL (0.2-1.0)
[2020-04-13 06:20] LABS: HEMATOCRIT 22.1 % (42-54); MEAN CORPUSCULAR HGB CONC 30.3 g/dL (32.0-36.0); MEAN CORPUSCULAR VOLUME 92.5 fL (79-99); NUCLEATED RED BLOOD CELLS 0.2 % (0.0-0.19); PLATELET COUNT (AUTO) 98 K/uL (130-400); RED BLOOD CELL COUNT(AUTO) 2.39 MIL/uL (4.50-6.20); RED CELL DISTRIBUTION WIDTH 19.9 % (11.0-15.5); WHITE BLOOD COUNT (AUTO) 29.5 K/uL (4.8-10.8)
[2020-04-13 06:24] LABS: ALBUMIN 1.7 g/dL (3.5-5.0); CREATININE 3.8 mg/dL (0.5-1.5); PHOSPHORUS 5.7 mg/dL (2.5-4.9); POTASSIUM 5.5 mmol/L (3.5-5.1)
[2020-04-13 07:07] LABS: BAND NEUTROPHILS % (MANUAL) 1 % (0-2)
[2020-04-13 07:09] LABS: PLATELET MORPHOLOGY COMMENT DECREASED
[2020-04-13 07:10] LABS: MAN.DIFF COMMENT-IMPRESSION MANUAL DIFFERENTIAL
[2020-04-13 07:25] LABS: MONOCYTES % (MANUAL) 1 % (2-9); SEGMENTED NEUTROPHILS % 98 % (40-70)
[2020-04-13] MEDS: MEROPENEM 1 GM VIAL IVP SCH ×2 (08:51→21:48)
[2020-04-13] MEDS: VITAMIN E 400 UNIT CAPSULE PO SCH (08:51)
[2020-04-13] MEDS: FLUCONAZOLE 400 MG/NS 200 ML 200 ML IV SCH (08:51)
[2020-04-13] MEDS: LINEZOLID 600 MG/ISO-OSM 300 ML IV SCH ×2 (08:52→21:47)
[2020-04-13] MEDS: Vitamin B Complex/Vit C/Folic Acid PO SCH (08:53)
[2020-04-13] MEDS: TAMSULOSIN HCL 0.4 MG CAP.ER.24H PO SCH ×2 (08:53→21:48)
[2020-04-13] MEDS: CALCIUM CARB 500MG PO SCH (08:53)
[2020-04-13] MEDS: DOCUSATE NA 100MG/10ML UDCUP PO SCH ×2 (08:53→21:48)
[2020-04-13] MEDS: ASPIRIN 81MG CHEW TAB PO SCH (08:53)
[2020-04-13] MEDS: RASAGILINE MESYLATE 1 MG PO SCH (08:54)
[2020-04-13] MEDS: SENNOSIDES 8.6 MG TABLET PO SCH (08:55)
[2020-04-13] MEDS: CARBIDOPA-LEVODOPA 25-100 TAB PO SCH ×4 (08:55→21:48)
[2020-04-13] MEDS: METOPROLOL TARTRATE 25 MG TAB PO SCH ×2 (08:56→21:48)
[2020-04-13] MEDS: ENOXAPARIN SODIUM 80 MG/0.8 ML SQ SCH (09:00)
[2020-04-13] MEDS: VITAMIN D 125MCG PO SCH (09:00)
[2020-04-13] MEDS ORDERED: 0.9% NACL 250ML 250 ML IV ONE (10:43)
[2020-04-13 10:54] LABS: ABG BASE EXCESS -3.3 mmol/L (-2.0-3.0); ABG HCO3 21.7 mmol/L (21.0-28.0); ABG OXYGEN SATURATION 96.5 % (95.0-99.0); ABG PCO2 39 mmHg (35-48)
[2020-04-13] MEDS: 0.9%NACL 1000ML 1,000 ML IV SCH ×2 (11:30→11:35)
[2020-04-13 16:28] LABS: HEMATOCRIT 27.9 % (42-54)
[2020-04-13] MEDS: DEXAMETHASONE SOD PHOSPHATE 4 MG/ML 1ML VIAL IVP SCH (17:41)
[2020-04-13] MEDS ORDERED: INSULIN GLARGINE 100 UNITS/ML 10 ML VIAL SQ SCH (21:00)
[2020-04-13] MEDS: DEXTROSE 5%-WATER 1,000 ML IV SCH (21:47)
[2020-04-14] VITALS (29 sets, daily range): BP systolic 109–160; BP diastolic 39–80
[2020-04-14] MEDS: METOCLOPRAMIDE 10 MG/2 ML VIAL IVP SCH ×4 (00:26→17:12)
[2020-04-14 04:21] LABS: HEMATOCRIT 29.6 % (42-54); MEAN CORPUSCULAR HEMOGLOBIN 28.4 pg (27.0-33.0); MEAN CORPUSCULAR HGB CONC 30.7 g/dL (32.0-36.0); MEAN CORPUSCULAR VOLUME 92.5 fL (79-99); PLATELET COUNT (AUTO) 102 K/uL (130-400); RED CELL DISTRIBUTION WIDTH 19.1 % (11.0-15.5)
[2020-04-14 04:41] LABS: ALBUMIN 1.6 g/dL (3.5-5.0); BILIRUBIN,TOTAL 0.6 mg/dL (0.2-1.0); CREATININE 3.6 mg/dL (0.5-1.5); POTASSIUM 5.2 mmol/L (3.5-5.1); TOTAL PROTEIN, SERUM 4.7 g/dL (6.0-8.3)
[2020-04-14] MEDS: ARTIFICAL TEARS SOL 15 ML OU SCH ×4 (04:45→22:45)
[2020-04-14] MEDS: CHLORHEXIDINE GLUCONATE 473 ML MOUTHWASH MM SCH ×4 (04:45→22:45)
[2020-04-14 04:52] LABS: WHITE BLOOD COUNT (AUTO) 39.8 K/uL (4.8-10.8)
[2020-04-14 05:51] LABS: BAND NEUTROPHILS % (MANUAL) 2 % (0-2); MAN.DIFF COMMENT-IMPRESSION MANUAL DIFFERENTIAL; MONOCYTES % (MANUAL) 1 % (2-9); SEGMENTED NEUTROPHILS % 97 % (40-70)
[2020-04-14 05:52] LABS: PLATELET MORPHOLOGY COMMENT DECREASED
[2020-04-14 06:51] LABS: ABG BASE EXCESS -3.6 mmol/L (-2.0-3.0); ABG HCO3 20.8 mmol/L (21.0-28.0); ABG OXYGEN SATURATION 97.1 % (95.0-99.0); ABG PCO2 36 mmHg (35-48)
[2020-04-14] MEDS: INSULIN HUMULIN R 100 UNIT/ML 3ML SQ SCH ×6 (07:30→21:00)
[2020-04-14] MEDS: SENNOSIDES 8.6 MG TABLET PO SCH (07:53)
[2020-04-14] MEDS: RASAGILINE MESYLATE 1 MG PO SCH (07:53)
[2020-04-14] MEDS: DOCUSATE NA 100MG/10ML UDCUP PO SCH ×2 (07:53→22:22)
[2020-04-14] MEDS: VITAMIN D 125MCG PO SCH (09:00)
[2020-04-14] MEDS: MEROPENEM 1 GM VIAL IVP SCH (09:59)
[2020-04-14] MEDS: FLUCONAZOLE 400 MG/NS 200 ML 200 ML IV SCH (09:59)
[2020-04-14] MEDS: TAMSULOSIN HCL 0.4 MG CAP.ER.24H PO SCH ×2 (09:59→22:26)
[2020-04-14] MEDS: LINEZOLID 600 MG/ISO-OSM 300 ML IV SCH ×2 (09:59→22:22)
[2020-04-14] MEDS: Vitamin B Complex/Vit C/Folic Acid PO SCH (09:59)
[2020-04-14] MEDS: CARBIDOPA-LEVODOPA 25-100 TAB PO SCH ×4 (10:00→22:22)
[2020-04-14] MEDS: VITAMIN E 400 UNIT CAPSULE PO SCH (10:00)
[2020-04-14] MEDS: METOPROLOL TARTRATE 25 MG TAB PO SCH ×3 (10:00→22:31)
[2020-04-14] MEDS: ASPIRIN 81MG CHEW TAB PO SCH (10:01)
[2020-04-14] MEDS: CALCIUM CARB 500MG PO SCH (10:01)
[2020-04-14] MEDS ORDERED: FUROSEMIDE 40MG VIAL IV SCH (10:30)
[2020-04-14] MEDS: DEXTROSE 5%-WATER 1,000 ML IV SCH (14:00)
[2020-04-14 16:14] LABS: INR 1.13 (0.85-1.15)
[2020-04-14] MEDS: DEXAMETHASONE SOD PHOSPHATE 4 MG/ML 1ML VIAL IVP SCH (17:12)
[2020-04-14] MEDS ORDERED: 0.9%NACL 1000ML 1,000 ML IV ONE (21:04)
[2020-04-14] MEDS: MIDAZOLAM 100MG-0.9% NS 100ML 100 ML IV PRN (22:09)
[2020-04-15] VITALS (37 sets, daily range): BP systolic 108–182; BP diastolic 34–72
[2020-04-15] MEDS: INSULIN GLARGINE 100 UNITS/ML 10 ML VIAL SQ SCH ×2 (01:02→07:25)
[2020-04-15] MEDS: INSULIN HUMULIN R 100 UNIT/ML 3ML SQ SCH ×9 (01:07→21:00)
[2020-04-15] MEDS: METOCLOPRAMIDE 10 MG/2 ML VIAL IVP SCH ×4 (01:25→17:05)
[2020-04-15] MEDS: MEROPENEM 1 GM VIAL IVP SCH ×3 (01:25→20:34)
[2020-04-15 05:29] LABS: MEAN CORPUSCULAR HEMOGLOBIN 28.8 pg (27.0-33.0); MEAN CORPUSCULAR HGB CONC 31.7 g/dL (32.0-36.0); MEAN CORPUSCULAR VOLUME 90.6 fL (79-99); PLATELET COUNT (AUTO) 93 K/uL (130-400); RED CELL DISTRIBUTION WIDTH 18.9 % (11.0-15.5)
[2020-04-15] MEDS: ARTIFICAL TEARS SOL 15 ML OU SCH ×3 (05:30→16:33)
[2020-04-15] MEDS: CHLORHEXIDINE GLUCONATE 473 ML MOUTHWASH MM SCH ×3 (05:30→16:33)
[2020-04-15 05:34] LABS: WHITE BLOOD COUNT (AUTO) 41.7 K/uL (4.8-10.8)
[2020-04-15 06:14] LABS: CREATININE 2.9 mg/dL (0.5-1.5); POTASSIUM 5.2 mmol/L (3.5-5.1)
[2020-04-15 06:54] LABS: EOSINOPHILS % (MANUAL) 2 % (1-6); LYMPHOCYTES % (MANUAL) 1 % (22-44); MAN.DIFF COMMENT-IMPRESSION MANUAL DIFFERENTIAL; MONOCYTES % (MANUAL) 1 % (2-9); PLATELET MORPHOLOGY COMMENT DECREASED; SEGMENTED NEUTROPHILS % 96 % (40-70)
[2020-04-15 07:16] LABS: ABG BASE EXCESS -0.8 mmol/L (-2.0-3.0); ABG HCO3 23.2 mmol/L (21.0-28.0); ABG OXYGEN SATURATION 96.3 % (95.0-99.0); ABG PCO2 37 mmHg (35-48)
[2020-04-15] MEDS: RASAGILINE MESYLATE 1 MG PO SCH (07:30)
[2020-04-15] MEDS: DOCUSATE NA 100MG/10ML UDCUP PO SCH ×2 (08:51→20:30)
[2020-04-15] MEDS: ASPIRIN 81MG CHEW TAB PO SCH (08:51)
[2020-04-15] MEDS: Vitamin B Complex/Vit C/Folic Acid PO SCH (08:53)
[2020-04-15] MEDS: CALCIUM CARB 500MG PO SCH (08:54)
[2020-04-15] MEDS: TAMSULOSIN HCL 0.4 MG CAP.ER.24H PO SCH ×2 (08:54→20:29)
[2020-04-15] MEDS: METOPROLOL TARTRATE 25 MG TAB PO SCH ×2 (08:54→20:29)
[2020-04-15] MEDS: VITAMIN E 400 UNIT CAPSULE PO SCH (08:54)
[2020-04-15] MEDS: SENNOSIDES 8.6 MG TABLET PO SCH (08:54)
[2020-04-15] MEDS: FLUCONAZOLE 400 MG/NS 200 ML 200 ML IV SCH (08:55)
[2020-04-15] MEDS: CARBIDOPA-LEVODOPA 25-100 TAB PO SCH ×4 (08:55→20:29)
[2020-04-15] MEDS: LINEZOLID 600 MG/ISO-OSM 300 ML IV SCH ×2 (08:55→20:30)
[2020-04-15] MEDS: VITAMIN D 125MCG PO SCH (09:00)
[2020-04-15] MEDS: DEXTROSE 5%-WATER 1,000 ML IV SCH (10:33)
[2020-04-15 19:31] LABS: CHOLESTEROL 83 mg/dL (<200); HDL CHOLESTEROL 22 mg/dL (29-71); LDL DIRECT 49 mg/dL (0-99); TRIGLYCERIDES 61 mg/dL (30-200)
[2020-04-15 19:32] LABS: ALBUMIN 1.5 g/dL (3.5-5.0); BILIRUBIN,DIRECT 0.2 mg/dL (0.0-0.3); BILIRUBIN,TOTAL 0.5 mg/dL (0.2-1.0); POTASSIUM 5.4 mmol/L (3.5-5.1); TOTAL PROTEIN, SERUM 4.7 g/dL (6.0-8.3)
[2020-04-15] MEDS ORDERED: FENTANYL 2500MCG+NS 250ML 250 ML IV ONE (20:00)
[2020-04-15] MEDS: HONEY 1 APPL/ML TUBE TP SCH (22:44)
[2020-04-16] VITALS (37 sets, daily range): BP systolic 85–139; BP diastolic 33–55
[2020-04-16] MEDS: ARTIFICAL TEARS SOL 15 ML OU SCH ×5 (00:36→21:45)
[2020-04-16] MEDS: METOCLOPRAMIDE 10 MG/2 ML VIAL IVP SCH ×5 (00:36→23:04)
[2020-04-16] MEDS: CHLORHEXIDINE GLUCONATE 473 ML MOUTHWASH MM SCH ×5 (00:36→21:45)
[2020-04-16 05:58] LABS: HEMATOCRIT 31.3 % (42-54); MEAN CORPUSCULAR HEMOGLOBIN 27.7 pg (27.0-33.0); MEAN CORPUSCULAR HGB CONC 30.7 g/dL (32.0-36.0); MEAN CORPUSCULAR VOLUME 90.2 fL (79-99); PLATELET COUNT (AUTO) 91 K/uL (130-400); RED BLOOD CELL COUNT(AUTO) 3.47 MIL/uL (4.50-6.20); RED CELL DISTRIBUTION WIDTH 19.2 % (11.0-15.5)
[2020-04-16 06:07] LABS: WHITE BLOOD COUNT (AUTO) 37.1 K/uL (4.8-10.8)
[2020-04-16] MEDS: INSULIN HUMULIN R 100 UNIT/ML 3ML SQ SCH ×3 (06:28→16:30)
[2020-04-16] MEDS: DEXTROSE 5%-WATER 1,000 ML IV SCH ×2 (06:34→08:30)
[2020-04-16 06:41] LABS: ALBUMIN 1.4 g/dL (3.5-5.0); BILIRUBIN,TOTAL 0.7 mg/dL (0.2-1.0); CREATININE 2.9 mg/dL (0.5-1.5); MAGNESIUM 3.3 mg/dL (1.80-2.40); POTASSIUM 5.8 mmol/L (3.5-5.1); TOTAL PROTEIN, SERUM 4.6 g/dL (6.0-8.3)
[2020-04-16 07:02] LABS: LYMPHOCYTES % (MANUAL) 1 % (22-44); MONOCYTES % (MANUAL) 1 % (2-9); SEGMENTED NEUTROPHILS % 98 % (40-70)
[2020-04-16 07:03] LABS: MAN.DIFF COMMENT-IMPRESSION MANUAL DIFFERENTIAL
[2020-04-16 07:04] LABS: PLATELET MORPHOLOGY COMMENT DECREASED
[2020-04-16 08:25] LABS: ABG BASE EXCESS -1.9 mmol/L (-2.0-3.0); ABG OXYGEN SATURATION 92.9 % (95.0-99.0); ABG PCO2 27 mmHg (35-48)
[2020-04-16] MEDS ORDERED: KAYEXALATE 15GM/60ML RC SCH (08:30)
[2020-04-16] MEDS: RASAGILINE MESYLATE 1 MG PO SCH (08:36)
[2020-04-16] MEDS: ACETAMINOPHEN 325 MG TAB PO PRN (08:38)
[2020-04-16] MEDS: VITAMIN D 125MCG PO SCH (09:00)
[2020-04-16] MEDS: TAMSULOSIN HCL 0.4 MG CAP.ER.24H PO SCH ×2 (09:23→21:03)
[2020-04-16] MEDS: Vitamin B Complex/Vit C/Folic Acid PO SCH (09:23)
[2020-04-16] MEDS: FLUCONAZOLE 400 MG/NS 200 ML 200 ML IV SCH (09:23)
[2020-04-16] MEDS: ASPIRIN 81MG CHEW TAB PO SCH (09:23)
[2020-04-16] MEDS: DOCUSATE NA 100MG/10ML UDCUP PO SCH ×2 (09:23→21:03)
[2020-04-16] MEDS: METOPROLOL TARTRATE 25 MG TAB PO SCH ×2 (09:23→21:02)
[2020-04-16] MEDS: MEROPENEM 1 GM VIAL IVP SCH ×2 (09:24→21:03)
[2020-04-16] MEDS: SENNOSIDES 8.6 MG TABLET PO SCH (09:24)
[2020-04-16] MEDS: CALCIUM CARB 500MG PO SCH (09:24)
[2020-04-16] MEDS: VITAMIN E 400 UNIT CAPSULE PO SCH (09:24)
[2020-04-16] MEDS: HONEY 1 APPL/ML TUBE TP SCH ×2 (09:24→21:03)
[2020-04-16] MEDS: CARBIDOPA-LEVODOPA 25-100 TAB PO SCH ×4 (09:24→21:02)
[2020-04-16] MEDS: LINEZOLID 600 MG/ISO-OSM 300 ML IV SCH ×2 (09:24→21:03)
[2020-04-16] MEDS: MILRINONE-D5W 20 MG/100 ML 100 ML IV SCH (17:29)
[2020-04-16] MEDS ORDERED: INSULIN GLARGINE 100 UNITS/ML 10 ML VIAL SQ SCH (21:00)
[2020-04-16] MEDS ORDERED: KAYEXALATE 15GM/60ML ONE (21:24)
[2020-04-16] MEDS ORDERED: FUROSEMIDE 40MG VIAL ONE (21:25)
[2020-04-16] MEDS ORDERED: FUROSEMIDE 40MG VIAL IV ONE (21:30)
[2020-04-16] MEDS: KAYEXALATE 15GM/60ML PO SCH (21:30)
[2020-04-17] VITALS (49 sets, daily range): BP systolic 54–152; BP diastolic 27–57
[2020-04-17] MEDS: INSULIN HUMULIN R 100 UNIT/ML 3ML SQ SCH ×5 (00:08→23:48)
[2020-04-17] MEDS: DEXTROSE 5%-WATER 1,000 ML IV SCH ×4 (02:00→23:46)
[2020-04-17] MEDS ORDERED: NOREPINEPHRIN 4MG/NS 250ML 250 ML IV ONE (02:10)
[2020-04-17] MEDS ORDERED: KAYEXALATE 15GM/60ML PO ONE (02:15)
[2020-04-17] MEDS ORDERED: AMIODARONE 900MG VIAL IV ONE (03:09)
[2020-04-17] MEDS ORDERED: AMIODARONE 150MG VIAL ONE (03:09)
[2020-04-17] MEDS: DEXTROSE 50%-WATER 25 GM/50 ML VIAL IV SCH (03:15)
[2020-04-17] MEDS ORDERED: AMIODARONE 900MG VIAL 450 MG in DEXTROSE 5%-WATER 250 ML IV SCH (03:15)
[2020-04-17] MEDS ORDERED: AMIODARONE 900MG VIAL 360 MG in DEXTROSE 5%-WATER 200 ML IV SCH (03:15)
[2020-04-17] MEDS ORDERED: SODIUM BICARB 50MEQ 50ML VIAL IV ONE (03:15)
[2020-04-17] MEDS ORDERED: AMIODARONE 150MG VIAL 150 MG in DEXTROSE 5%-WATER 100 ML IV SCH (03:15)
[2020-04-17] MEDS ORDERED: CALCIUM GLUC 1GM/10ML VIAL IV ONE (03:19)
[2020-04-17] MEDS ORDERED: SODIUM BICARB 50MEQ 50ML VIAL 50 ML ONE (03:19)
[2020-04-17] MEDS: DEXTROSE 50%-WATER 50 ML DISP.SYRIN IV PRN (03:21)
[2020-04-17] MEDS: MILRINONE-D5W 20 MG/100 ML 100 ML IV SCH (04:08)
[2020-04-17] MEDS: CHLORHEXIDINE GLUCONATE 473 ML MOUTHWASH MM SCH ×4 (04:08→22:44)
[2020-04-17] MEDS: ARTIFICAL TEARS SOL 15 ML OU SCH ×4 (04:08→22:44)
[2020-04-17] MEDS: KAYEXALATE 15GM/60ML PO SCH ×2 (04:15→23:39)
[2020-04-17] MEDS: CALCIUM GLUC 1GM/10ML VIAL IV SCH (04:29)
[2020-04-17] MEDS: INSULIN HUMULIN R 100 UNIT/ML 3ML IV SCH (04:30)
[2020-04-17] MEDS: METOCLOPRAMIDE 10 MG/2 ML VIAL IVP SCH ×4 (06:23→23:39)
[2020-04-17] MEDS: NOREPINEPHRIN 4MG/NS 250ML 250 ML IV SCH (06:58)
[2020-04-17 07:03] LABS: HEMATOCRIT 25.5 % (42-54); MEAN CORPUSCULAR HEMOGLOBIN 28.6 pg (27.0-33.0); MEAN CORPUSCULAR HGB CONC 31.8 g/dL (32.0-36.0); MEAN CORPUSCULAR VOLUME 90.1 fL (79-99); PLATELET COUNT (AUTO) 73 K/uL (130-400); RED BLOOD CELL COUNT(AUTO) 2.83 MIL/uL (4.50-6.20); RED CELL DISTRIBUTION WIDTH 18.6 % (11.0-15.5)
[2020-04-17 07:08] LABS: CREATININE 3.2 mg/dL (0.5-1.5); POTASSIUM 5.6 mmol/L (3.5-5.1)
[2020-04-17] MEDS: ALBUMIN (HUMAN) 25% 100 ML IV SCH ×3 (08:49→23:39)
[2020-04-17] MEDS: PHENYLEPHRINE HCL 100 MG in 0.9% NACL 250ML 250 ML IV SCH ×2 (08:50→15:53)
[2020-04-17] MEDS: AMIODARONE 150MG VIAL 150 MG in DEXTROSE 5%-WATER 100 ML IV SCH (08:52)
[2020-04-17] MEDS: VITAMIN D 125MCG PO SCH (09:00)
[2020-04-17] MEDS: RASAGILINE MESYLATE 1 MG PO SCH (09:20)
[2020-04-17] MEDS: TAMSULOSIN HCL 0.4 MG CAP.ER.24H PO SCH ×2 (09:33→21:04)
[2020-04-17] MEDS: DOCUSATE NA 100MG/10ML UDCUP PO SCH ×2 (09:33→21:04)
[2020-04-17] MEDS: CARBIDOPA-LEVODOPA 25-100 TAB PO SCH ×4 (09:33→21:04)
[2020-04-17] MEDS: CALCIUM CARB 500MG PO SCH (09:33)
[2020-04-17] MEDS: ASPIRIN 81MG CHEW TAB PO SCH (09:33)
[2020-04-17] MEDS: SENNOSIDES 8.6 MG TABLET PO SCH (09:34)
[2020-04-17] MEDS: Vitamin B Complex/Vit C/Folic Acid PO SCH (09:34)
[2020-04-17] MEDS: LINEZOLID 600 MG/ISO-OSM 300 ML IV SCH ×2 (09:34→21:04)
[2020-04-17] MEDS: MEROPENEM 1 GM VIAL IVP SCH ×2 (09:34→21:04)
[2020-04-17] MEDS: FLUCONAZOLE 400 MG/NS 200 ML 200 ML IV SCH (09:34)
[2020-04-17] MEDS: METOPROLOL TARTRATE 25 MG TAB PO SCH ×2 (09:35→19:52)
[2020-04-17] MEDS: VITAMIN E 400 UNIT CAPSULE PO SCH (09:35)
[2020-04-17] MEDS: HONEY 1 APPL/ML TUBE TP SCH ×2 (09:35→21:04)
[2020-04-17] MEDS: VASOPRESSIN 40 UNITS in 0.9%NACL 50ML 40 ML IV SCH ×2 (13:06→20:04)
[2020-04-17] MEDS ORDERED: PHARMACY COMMUNICATION MISC SCH (19:15)
[2020-04-17] MEDS: AMIODARONE 200 MG TABLET PO SCH (21:00)
[2020-04-18] VITALS (24 sets, daily range): BP systolic 107–138; BP diastolic 35–55
[2020-04-18] MEDS: DEXTROSE 50%-WATER 25 GM/50 ML VIAL IV SCH (00:56)
[2020-04-18] MEDS: CALCIUM GLUC 1GM/10ML VIAL IV SCH (00:56)
[2020-04-18] MEDS: INSULIN HUMULIN R 100 UNIT/ML 3ML IV SCH (00:56)
[2020-04-18] MEDS: CHLORHEXIDINE GLUCONATE 473 ML MOUTHWASH MM SCH ×4 (03:11→22:51)
[2020-04-18] MEDS: ARTIFICAL TEARS SOL 15 ML OU SCH ×4 (03:11→22:53)
[2020-04-18 04:34] LABS: ABG BASE EXCESS -0.5 mmol/L (-2.0-3.0); ABG HCO3 23.1 mmol/L (21.0-28.0); ABG OXYGEN SATURATION 90.5 % (95.0-99.0); ABG PCO2 35 mmHg (35-48)
[2020-04-18] MEDS: METOCLOPRAMIDE 10 MG/2 ML VIAL IVP SCH ×4 (05:23→23:43)
[2020-04-18] MEDS: INSULIN HUMULIN R 100 UNIT/ML 3ML SQ SCH ×4 (05:55→23:45)
[2020-04-18 07:11] LABS: POTASSIUM 5.5 mmol/L (3.5-5.1)
[2020-04-18 07:20] LABS: MEAN CORPUSCULAR HEMOGLOBIN 28.1 pg (27.0-33.0); MEAN CORPUSCULAR HGB CONC 31.3 g/dL (32.0-36.0); MEAN CORPUSCULAR VOLUME 89.6 fL (79-99); PLATELET COUNT (AUTO) 44 K/uL (130-400); RED BLOOD CELL COUNT(AUTO) 2.21 MIL/uL (4.50-6.20); RED CELL DISTRIBUTION WIDTH 18.3 % (11.0-15.5); WHITE BLOOD COUNT (AUTO) 12.7 K/uL (4.8-10.8)
[2020-04-18] MEDS: RASAGILINE MESYLATE 1 MG PO SCH (07:30)
[2020-04-18 07:34] LABS: HEMATOCRIT 19.8 % (42-54)
[2020-04-18] MEDS ORDERED: 0.9% NACL 250ML 250 ML IV ONE (08:40)
[2020-04-18] MEDS: METOPROLOL TARTRATE 25 MG TAB PO SCH ×2 (09:00→22:47)
[2020-04-18] MEDS: VITAMIN D 125MCG PO SCH (09:00)
[2020-04-18] MEDS: AMIODARONE 200 MG TABLET PO SCH ×2 (09:00→22:36)
[2020-04-18] MEDS: DOCUSATE NA 100MG/10ML UDCUP PO SCH ×2 (09:12→22:36)
[2020-04-18] MEDS: Vitamin B Complex/Vit C/Folic Acid PO SCH (09:13)
[2020-04-18] MEDS: CALCIUM CARB 500MG PO SCH (09:13)
[2020-04-18] MEDS: ASPIRIN 81MG CHEW TAB PO SCH (09:13)
[2020-04-18] MEDS: CARBIDOPA-LEVODOPA 25-100 TAB PO SCH ×4 (09:14→22:36)
[2020-04-18] MEDS: SENNOSIDES 8.6 MG TABLET PO SCH (09:14)
[2020-04-18] MEDS: LINEZOLID 600 MG/ISO-OSM 300 ML IV SCH (09:15)
[2020-04-18] MEDS: TAMSULOSIN HCL 0.4 MG CAP.ER.24H PO SCH ×2 (09:15→22:36)
[2020-04-18] MEDS: VITAMIN E 400 UNIT CAPSULE PO SCH (09:15)
[2020-04-18] MEDS: MEROPENEM 1 GM VIAL IVP SCH ×2 (09:15→22:40)
[2020-04-18] MEDS: FLUCONAZOLE 400 MG/NS 200 ML 200 ML IV SCH (09:16)
[2020-04-18] MEDS: HONEY 1 APPL/ML TUBE TP SCH ×2 (09:18→22:51)
[2020-04-18] MEDS: FENTANYL 2500MCG+NS 250ML 250 ML IV SCH (13:32)
[2020-04-18 16:19] LABS: HEMATOCRIT 23.8 % (42-54)
[2020-04-18 16:35] LABS: POTASSIUM 5.2 mmol/L (3.5-5.1)
[2020-04-18] MEDS ORDERED: EPOETIN ALFA 10,000 UNIT/ML VIAL SQ SCH (17:00)
[2020-04-18] MEDS: DEXTROSE 5%-WATER 1,000 ML IV SCH ×2 (17:15→20:30)
[2020-04-18] MEDS: INSULIN GLARGINE 100 UNITS/ML 10 ML VIAL SQ SCH (22:39)
[2020-04-18] MEDS: MIDAZOLAM 100MG-0.9% NS 100ML 100 ML IV PRN (22:54)
[2020-04-18] MEDS: VASOPRESSIN 40 UNITS in 0.9%NACL 50ML 40 ML IV SCH (23:57)
[2020-04-19] VITALS (63 sets, daily range): BP systolic 87–161; BP diastolic 30–73
[2020-04-19] MEDS: KAYEXALATE 15GM/60ML PO SCH ×4 (02:34→22:18)
[2020-04-19] MEDS: ARTIFICAL TEARS SOL 15 ML OU SCH ×4 (05:29→22:22)
[2020-04-19] MEDS: CHLORHEXIDINE GLUCONATE 473 ML MOUTHWASH MM SCH ×4 (05:30→22:21)
[2020-04-19] MEDS: METOCLOPRAMIDE 10 MG/2 ML VIAL IVP SCH ×3 (05:34→17:11)
[2020-04-19 05:47] LABS: BASOPHILS % (AUTO) 0.2 % (0.0-5.0); EOSINOPHILS % (AUTO) 1.2 % (0.0-8.0); HEMATOCRIT 27.2 % (42-54); LYMPHOCYTES % (AUTO) 4.6 % (21.0-51.0); MEAN CORPUSCULAR HEMOGLOBIN 28.3 pg (27.0-33.0); MEAN CORPUSCULAR VOLUME 88.6 fL (79-99); MONOCYTES % (AUTO) 0.7 % (3.0-13.0); NEUTROPHILS % (AUTO) 92.7 % (40.0-77.0); PLATELET COUNT (AUTO) 40 K/uL (130-400); RED BLOOD CELL COUNT(AUTO) 3.07 MIL/uL (4.50-6.20); RED CELL DISTRIBUTION WIDTH 18.5 % (11.0-15.5); WHITE BLOOD COUNT (AUTO) 9.4 K/uL (4.8-10.8)
[2020-04-19 06:07] LABS: CREATININE 2.8 mg/dL (0.5-1.5); MAGNESIUM 2.6 mg/dL (1.80-2.40); PHOSPHORUS 6.5 mg/dL (2.5-4.9); POTASSIUM 5.4 mmol/L (3.5-5.1)
[2020-04-19] MEDS: RASAGILINE MESYLATE 1 MG PO SCH (07:45)
[2020-04-19] MEDS: CARBIDOPA-LEVODOPA 25-100 TAB PO SCH ×4 (08:18→22:27)
[2020-04-19] MEDS: CALCIUM CARB 500MG PO SCH (08:18)
[2020-04-19] MEDS: VITAMIN E 400 UNIT CAPSULE PO SCH (08:18)
[2020-04-19] MEDS: DOCUSATE NA 100MG/10ML UDCUP PO SCH ×2 (08:20→22:05)
[2020-04-19] MEDS: TAMSULOSIN HCL 0.4 MG CAP.ER.24H PO SCH ×2 (08:20→22:05)
[2020-04-19] MEDS: Vitamin B Complex/Vit C/Folic Acid PO SCH (08:20)
[2020-04-19] MEDS: ASPIRIN 81MG CHEW TAB PO SCH (08:20)
[2020-04-19] MEDS: AMIODARONE 200 MG TABLET PO SCH ×2 (08:20→22:08)
[2020-04-19] MEDS: METOPROLOL TARTRATE 25 MG TAB PO SCH ×2 (08:20→21:00)
[2020-04-19] MEDS: HONEY 1 APPL/ML TUBE TP SCH ×3 (08:21→22:22)
[2020-04-19] MEDS: FLUCONAZOLE 400 MG/NS 200 ML 200 ML IV SCH (08:22)
[2020-04-19] MEDS: ACETAMINOPHEN 325 MG TAB PO PRN (08:48)
[2020-04-19] MEDS: MEROPENEM 1 GM VIAL IVP SCH ×2 (08:49→22:08)
[2020-04-19] MEDS: VITAMIN D 125MCG PO SCH (09:00)
[2020-04-19] MEDS: SENNOSIDES 8.6 MG TABLET PO SCH (10:29)
[2020-04-19] MEDS: DEXTROSE 5%-WATER 1,000 ML IV SCH ×2 (12:53→16:09)
[2020-04-19] MEDS: VASOPRESSIN 40 UNITS in 0.9%NACL 50ML 40 ML IV SCH (17:13)
[2020-04-19] MEDS: INSULIN GLARGINE 100 UNITS/ML 10 ML VIAL SQ SCH (22:27)
[2020-04-20] VITALS (59 sets, daily range): BP systolic 87–159; BP diastolic 34–87
[2020-04-20] MEDS: INSULIN HUMULIN R 100 UNIT/ML 3ML IV SCH (03:03)
[2020-04-20] MEDS: CALCIUM GLUC 1GM/10ML VIAL IV SCH (03:04)
[2020-04-20] MEDS: METOCLOPRAMIDE 10 MG/2 ML VIAL IVP SCH ×4 (03:08→16:06)
[2020-04-20] MEDS: DEXTROSE 50%-WATER 25 GM/50 ML VIAL IV SCH (03:10)
[2020-04-20] MEDS: CHLORHEXIDINE GLUCONATE 473 ML MOUTHWASH MM SCH ×3 (03:11→15:19)
[2020-04-20] MEDS: ARTIFICAL TEARS SOL 15 ML OU SCH ×4 (03:11→21:37)
[2020-04-20] MEDS: INSULIN HUMULIN R 100 UNIT/ML 3ML SQ SCH ×4 (05:11→17:18)
[2020-04-20] MEDS: RASAGILINE MESYLATE 1 MG PO SCH (07:30)
[2020-04-20] MEDS: DOCUSATE NA 100MG/10ML UDCUP PO SCH ×2 (08:24→21:33)
[2020-04-20] MEDS: ASPIRIN 81MG CHEW TAB PO SCH (08:24)
[2020-04-20] MEDS: FLUCONAZOLE 400 MG/NS 200 ML 200 ML IV SCH (08:24)
[2020-04-20] MEDS: AMIODARONE 200 MG TABLET PO SCH ×2 (08:24→21:34)
[2020-04-20] MEDS: SENNOSIDES 8.6 MG TABLET PO SCH (08:24)
[2020-04-20] MEDS: Vitamin B Complex/Vit C/Folic Acid PO SCH (08:24)
[2020-04-20] MEDS: TAMSULOSIN HCL 0.4 MG CAP.ER.24H PO SCH ×2 (08:24→21:33)
[2020-04-20] MEDS: VITAMIN E 400 UNIT CAPSULE PO SCH (08:25)
[2020-04-20] MEDS: CALCIUM CARB 500MG PO SCH (08:25)
[2020-04-20] MEDS: CARBIDOPA-LEVODOPA 25-100 TAB PO SCH ×4 (08:25→21:34)
[2020-04-20] MEDS: FENTANYL 2500MCG+NS 250ML 250 ML IV SCH (08:28)
[2020-04-20] MEDS: METOPROLOL TARTRATE 25 MG TAB PO SCH ×2 (09:00→21:33)
[2020-04-20] MEDS: VITAMIN D 125MCG PO SCH (09:00)
[2020-04-20] MEDS: HONEY 1 APPL/ML TUBE TP SCH ×3 (10:00→21:38)
[2020-04-20] MEDS: DEXTROSE 5%-WATER 1,000 ML IV SCH ×2 (10:01→11:35)
[2020-04-20] MEDS: MEROPENEM 1 GM VIAL IVP SCH ×2 (10:17→21:34)
[2020-04-20 10:45] LABS: HEMATOCRIT 30.2 % (42-54); MEAN CORPUSCULAR HEMOGLOBIN 28.4 pg (27.0-33.0); MEAN CORPUSCULAR HGB CONC 31.5 g/dL (32.0-36.0); MEAN CORPUSCULAR VOLUME 90.4 fL (79-99); PLATELET COUNT (AUTO) 51 K/uL (130-400); RED BLOOD CELL COUNT(AUTO) 3.34 MIL/uL (4.50-6.20); RED CELL DISTRIBUTION WIDTH 18.6 % (11.0-15.5); WHITE BLOOD COUNT (AUTO) 7.2 K/uL (4.8-10.8)
[2020-04-20 10:56] LABS: CREATININE 2.8 mg/dL (0.5-1.5); POTASSIUM 5.7 mmol/L (3.5-5.1)
[2020-04-20] MEDS: DEXTROSE 50%-WATER 50 ML DISP.SYRIN IV PRN (11:35)
[2020-04-20 11:53] LABS: LYMPHOCYTES % (MANUAL) 6 % (22-44); MAN.DIFF COMMENT-IMPRESSION MANUAL DIFFERENTIAL; MONOCYTES % (MANUAL) 3 % (2-9); PLATELET MORPHOLOGY COMMENT DECREASED; SEGMENTED NEUTROPHILS % 91 % (40-70)
[2020-04-20] MEDS ORDERED: KAYEXALATE 15GM/60ML PO SCH (12:30)
[2020-04-20] MEDS: VASOPRESSIN 40 UNITS in 0.9%NACL 50ML 40 ML IV SCH (15:44)
[2020-04-20] MEDS: KAYEXALATE 15GM/60ML PO SCH ×2 (21:15→21:30)
[2020-04-20] MEDS: INSULIN GLARGINE 100 UNITS/ML 10 ML VIAL SQ SCH (21:40)
[2020-04-21] VITALS (63 sets, daily range): BP systolic 93–163; BP diastolic 38–85
[2020-04-21] MEDS: METOCLOPRAMIDE 10 MG/2 ML VIAL IVP SCH ×4 (00:34→17:06)
[2020-04-21] MEDS: INSULIN HUMULIN R 100 UNIT/ML 3ML SQ SCH ×4 (01:07→17:57)
[2020-04-21] MEDS: DEXTROSE 5%-WATER 1,000 ML IV SCH ×2 (01:08→08:20)
[2020-04-21] MEDS: CHLORHEXIDINE GLUCONATE 473 ML MOUTHWASH MM SCH ×5 (01:09→21:35)
[2020-04-21] MEDS: DEXTROSE 50%-WATER 25 GM/50 ML VIAL IV SCH (03:15)
[2020-04-21] MEDS: INSULIN HUMULIN R 100 UNIT/ML 3ML IV SCH (03:15)
[2020-04-21] MEDS: CALCIUM GLUC 1GM/10ML VIAL IV SCH (03:15)
[2020-04-21] MEDS: ARTIFICAL TEARS SOL 15 ML OU SCH ×4 (05:53→21:30)
[2020-04-21] MEDS: RASAGILINE MESYLATE 1 MG PO SCH (07:30)
[2020-04-21 07:41] LABS: HEMATOCRIT 28.6 % (42-54); MEAN CORPUSCULAR HEMOGLOBIN 28.3 pg (27.0-33.0); MEAN CORPUSCULAR HGB CONC 31.8 g/dL (32.0-36.0); MEAN CORPUSCULAR VOLUME 88.8 fL (79-99); PLATELET COUNT (AUTO) 50 K/uL (130-400); RED BLOOD CELL COUNT(AUTO) 3.22 MIL/uL (4.50-6.20); WHITE BLOOD COUNT (AUTO) 4.9 K/uL (4.8-10.8)
[2020-04-21 07:49] LABS: CREATININE 2.6 mg/dL (0.5-1.5); POTASSIUM 4.7 mmol/L (3.5-5.1)
[2020-04-21] MEDS: MEROPENEM 1 GM VIAL IVP SCH ×2 (08:06→21:23)
[2020-04-21] MEDS: CARBIDOPA-LEVODOPA 25-100 TAB PO SCH ×4 (08:06→21:23)
[2020-04-21] MEDS: Vitamin B Complex/Vit C/Folic Acid PO SCH (08:07)
[2020-04-21] MEDS: DOCUSATE NA 100MG/10ML UDCUP PO SCH ×2 (08:07→21:00)
[2020-04-21] MEDS: METOPROLOL TARTRATE 25 MG TAB PO SCH ×2 (08:08→21:23)
[2020-04-21] MEDS: ASPIRIN 81MG CHEW TAB PO SCH (08:08)
[2020-04-21] MEDS: FLUCONAZOLE 400 MG/NS 200 ML 200 ML IV SCH (08:08)
[2020-04-21] MEDS: AMIODARONE 200 MG TABLET PO SCH ×2 (08:08→21:23)
[2020-04-21] MEDS: SENNOSIDES 8.6 MG TABLET PO SCH (08:08)
[2020-04-21] MEDS: TAMSULOSIN HCL 0.4 MG CAP.ER.24H PO SCH ×2 (08:08→21:23)
[2020-04-21 08:10] LABS: BAND NEUTROPHILS % (MANUAL) 3 % (0-2); BASOPHILS % (MANUAL) 1 % (0-2); MAN.DIFF COMMENT-IMPRESSION MANUAL DIFFERENTIAL; SEGMENTED NEUTROPHILS % 96 % (40-70)
[2020-04-21 08:11] LABS: PLATELET MORPHOLOGY COMMENT MARKED DECREASE
[2020-04-21] MEDS: CALCIUM CARB 500MG PO SCH (08:12)
[2020-04-21] MEDS: VITAMIN E 400 UNIT CAPSULE PO SCH (08:12)
[2020-04-21] MEDS: HONEY 1 APPL/ML TUBE TP SCH ×2 (08:13→21:34)
[2020-04-21] MEDS: VITAMIN D 125MCG PO SCH (09:00)
[2020-04-21] MEDS ORDERED: FENTANYL 2500MCG+NS 250ML 250 ML IV SCH (16:30)
[2020-04-21] MEDS: KAYEXALATE 15GM/60ML PO SCH ×2 (21:15→21:29)
[2020-04-21] MEDS: INSULIN GLARGINE 100 UNITS/ML 10 ML VIAL SQ SCH (21:32)
[2020-04-21] MEDS: VASOPRESSIN 40 UNITS in 0.9%NACL 50ML 40 ML IV SCH (21:33)
[2020-04-21] MEDS: ACETAMINOPHEN 325 MG TAB PO PRN (21:59)
[2020-04-22] VITALS (61 sets, daily range): BP systolic 109–165; BP diastolic 43–74
[2020-04-22] MEDS: METOCLOPRAMIDE 10 MG/2 ML VIAL IVP SCH ×4 (00:38→18:05)
[2020-04-22] MEDS: INSULIN HUMULIN R 100 UNIT/ML 3ML SQ SCH ×4 (00:40→18:19)
[2020-04-22] MEDS: DEXTROSE 5%-WATER 1,000 ML IV SCH ×4 (02:00→23:35)
[2020-04-22] MEDS: DEXTROSE 50%-WATER 25 GM/50 ML VIAL IV SCH (03:12)
[2020-04-22] MEDS: INSULIN HUMULIN R 100 UNIT/ML 3ML IV SCH (03:13)
[2020-04-22] MEDS: CALCIUM GLUC 1GM/10ML VIAL IV SCH (03:13)
[2020-04-22] MEDS: ARTIFICAL TEARS SOL 15 ML OU SCH ×4 (05:31→21:05)
[2020-04-22] MEDS: CHLORHEXIDINE GLUCONATE 473 ML MOUTHWASH MM SCH ×4 (05:33→21:06)
[2020-04-22] MEDS: RASAGILINE MESYLATE 1 MG PO SCH (07:30)
[2020-04-22 07:56] LABS: HEMATOCRIT 26.7 % (42-54); MEAN CORPUSCULAR HEMOGLOBIN 27.9 pg (27.0-33.0); MEAN CORPUSCULAR HGB CONC 31.8 g/dL (32.0-36.0); MEAN CORPUSCULAR VOLUME 87.5 fL (79-99); PLATELET COUNT (AUTO) 47 K/uL (130-400); RED BLOOD CELL COUNT(AUTO) 3.05 MIL/uL (4.50-6.20); RED CELL DISTRIBUTION WIDTH 17.8 % (11.0-15.5); WHITE BLOOD COUNT (AUTO) 4.4 K/uL (4.8-10.8)
[2020-04-22 08:06] LABS: CREATININE 2.2 mg/dL (0.5-1.5); POTASSIUM 4.4 mmol/L (3.5-5.1)
[2020-04-22] MEDS: METOPROLOL TARTRATE 25 MG TAB PO SCH ×2 (08:11→21:01)
[2020-04-22] MEDS: VITAMIN E 400 UNIT CAPSULE PO SCH (08:11)
[2020-04-22] MEDS: TAMSULOSIN HCL 0.4 MG CAP.ER.24H PO SCH ×2 (08:11→21:01)
[2020-04-22] MEDS: SENNOSIDES 8.6 MG TABLET PO SCH (08:12)
[2020-04-22] MEDS: AMIODARONE 200 MG TABLET PO SCH ×2 (08:12→21:01)
[2020-04-22] MEDS: DOCUSATE NA 100MG/10ML UDCUP PO SCH ×2 (08:12→21:00)
[2020-04-22] MEDS: Vitamin B Complex/Vit C/Folic Acid PO SCH (08:12)
[2020-04-22] MEDS: CARBIDOPA-LEVODOPA 25-100 TAB PO SCH ×4 (08:12→21:01)
[2020-04-22] MEDS: CALCIUM CARB 500MG PO SCH (08:12)
[2020-04-22] MEDS: FLUCONAZOLE 400 MG/NS 200 ML 200 ML IV SCH (08:12)
[2020-04-22] MEDS: ASPIRIN 81MG CHEW TAB PO SCH (08:12)
[2020-04-22] MEDS: HONEY 1 APPL/ML TUBE TP SCH ×2 (08:13→21:04)
[2020-04-22] MEDS: MEROPENEM 1 GM VIAL IVP SCH ×2 (08:45→21:09)
[2020-04-22] MEDS: VITAMIN D 125MCG PO SCH (08:45)
[2020-04-22 09:27] LABS: BAND NEUTROPHILS % (MANUAL) 1 % (0-2); LYMPHOCYTES % (MANUAL) 3 % (22-44); MAN.DIFF COMMENT-IMPRESSION MANUAL DIFFERENTIAL; MONOCYTES % (MANUAL) 1 % (2-9); SEGMENTED NEUTROPHILS % 95 % (40-70)
[2020-04-22 09:30] LABS: PLATELET MORPHOLOGY COMMENT DECREASED
[2020-04-22] MEDS: INSULIN GLARGINE 100 UNITS/ML 10 ML VIAL SQ SCH (21:03)
[2020-04-22] MEDS: KAYEXALATE 15GM/60ML PO SCH ×2 (21:04→21:05)
[2020-04-23] VITALS (45 sets, daily range): BP systolic 94–146; BP diastolic 35–69
[2020-04-23] MEDS: METOCLOPRAMIDE 10 MG/2 ML VIAL IVP SCH ×4 (00:07→18:02)
[2020-04-23] MEDS: INSULIN HUMULIN R 100 UNIT/ML 3ML SQ SCH ×4 (00:08→18:00)
[2020-04-23] MEDS: CALCIUM GLUC 1GM/10ML VIAL IV SCH (02:50)
[2020-04-23] MEDS: DEXTROSE 50%-WATER 25 GM/50 ML VIAL IV SCH (02:50)
[2020-04-23] MEDS: INSULIN HUMULIN R 100 UNIT/ML 3ML IV SCH (02:50)
[2020-04-23 04:20] LABS: BASOPHILS % (AUTO) 0.2 % (0.0-5.0); EOSINOPHILS % (AUTO) 2.2 % (0.0-8.0); HEMATOCRIT 24.4 % (42-54); LYMPHOCYTES % (AUTO) 7.8 % (21.0-51.0); MEAN CORPUSCULAR HEMOGLOBIN 28.3 pg (27.0-33.0); MEAN CORPUSCULAR VOLUME 88.4 fL (79-99); NEUTROPHILS % (AUTO) 85.4 % (40.0-77.0); PLATELET COUNT (AUTO) 60 K/uL (130-400); RED BLOOD CELL COUNT(AUTO) 2.76 MIL/uL (4.50-6.20); RED CELL DISTRIBUTION WIDTH 17.9 % (11.0-15.5); WHITE BLOOD COUNT (AUTO) 4.5 K/uL (4.8-10.8)
[2020-04-23] MEDS: ARTIFICAL TEARS SOL 15 ML OU SCH ×4 (04:21→23:01)
[2020-04-23] MEDS: CHLORHEXIDINE GLUCONATE 473 ML MOUTHWASH MM SCH ×4 (04:22→23:01)
[2020-04-23 04:30] LABS: CREATININE 2.1 mg/dL (0.5-1.5); POTASSIUM 3.8 mmol/L (3.5-5.1)
[2020-04-23] MEDS: DOCUSATE NA 100MG/10ML UDCUP PO SCH ×2 (08:37→21:17)
[2020-04-23] MEDS: TAMSULOSIN HCL 0.4 MG CAP.ER.24H PO SCH ×2 (08:37→21:20)
[2020-04-23] MEDS: Vitamin B Complex/Vit C/Folic Acid PO SCH (08:37)
[2020-04-23] MEDS: FUROSEMIDE 40MG VIAL IV SCH (08:37)
[2020-04-23] MEDS: SENNOSIDES 8.6 MG TABLET PO SCH (08:37)
[2020-04-23] MEDS: AMIODARONE 200 MG TABLET PO SCH ×2 (08:37→21:20)
[2020-04-23] MEDS: METOPROLOL TARTRATE 25 MG TAB PO SCH ×2 (08:37→21:19)
[2020-04-23] MEDS: ASPIRIN 81MG CHEW TAB PO SCH (08:38)
[2020-04-23] MEDS: VITAMIN D 125MCG PO SCH (08:38)
[2020-04-23] MEDS: CALCIUM CARB 500MG PO SCH (08:38)
[2020-04-23] MEDS: VITAMIN E 400 UNIT CAPSULE PO SCH (08:38)
[2020-04-23] MEDS: FLUCONAZOLE 400 MG/NS 200 ML 200 ML IV SCH (08:38)
[2020-04-23] MEDS: CARBIDOPA-LEVODOPA 25-100 TAB PO SCH ×4 (08:38→21:21)
[2020-04-23] MEDS: HONEY 1 APPL/ML TUBE TP SCH ×2 (08:39→21:22)
[2020-04-23] MEDS: RASAGILINE MESYLATE 1 MG PO SCH (08:39)
[2020-04-23] MEDS: MEROPENEM 1 GM VIAL IVP SCH ×2 (08:41→21:24)
[2020-04-23] MEDS: DEXTROSE 5%-WATER 1,000 ML IV SCH ×2 (18:00→20:46)
[2020-04-23] MEDS: KAYEXALATE 15GM/60ML PO SCH ×2 (21:15→21:24)
[2020-04-23] MEDS: INSULIN GLARGINE 100 UNITS/ML 10 ML VIAL SQ SCH (21:18)
[2020-04-24] VITALS (31 sets, daily range): BP systolic 117–169; BP diastolic 42–70
[2020-04-24] MEDS: METOCLOPRAMIDE 10 MG/2 ML VIAL IVP SCH ×4 (00:29→18:04)
[2020-04-24] MEDS: INSULIN HUMULIN R 100 UNIT/ML 3ML SQ SCH ×4 (00:30→18:05)
[2020-04-24] MEDS: DEXTROSE 50%-WATER 25 GM/50 ML VIAL IV SCH (03:15)
[2020-04-24] MEDS: CALCIUM GLUC 1GM/10ML VIAL IV SCH (04:20)
[2020-04-24 04:59] LABS: BASOPHILS % (AUTO) 0.2 % (0.0-5.0); EOSINOPHILS % (AUTO) 0.9 % (0.0-8.0); HEMATOCRIT 23.9 % (42-54); LYMPHOCYTES % (AUTO) 8.3 % (21.0-51.0); MEAN CORPUSCULAR HEMOGLOBIN 28.1 pg (27.0-33.0); MEAN CORPUSCULAR HGB CONC 31.4 g/dL (32.0-36.0); MEAN CORPUSCULAR VOLUME 89.5 fL (79-99); MONOCYTES % (AUTO) 4.7 % (3.0-13.0); NEUTROPHILS % (AUTO) 85.5 % (40.0-77.0); PLATELET COUNT (AUTO) 84 K/uL (130-400); RED BLOOD CELL COUNT(AUTO) 2.67 MIL/uL (4.50-6.20); WHITE BLOOD COUNT (AUTO) 4.5 K/uL (4.8-10.8)
[2020-04-24] MEDS: ARTIFICAL TEARS SOL 15 ML OU SCH ×4 (04:59→21:12)
[2020-04-24] MEDS: CHLORHEXIDINE GLUCONATE 473 ML MOUTHWASH MM SCH ×4 (05:00→21:15)
[2020-04-24 05:26] LABS: ALBUMIN 1.1 g/dL (3.5-5.0); BILIRUBIN,TOTAL 0.5 mg/dL (0.2-1.0); CREATININE 2.2 mg/dL (0.5-1.5); POTASSIUM 3.1 mmol/L (3.5-5.1); TOTAL PROTEIN, SERUM 4.5 g/dL (6.0-8.3)
[2020-04-24] MEDS: INSULIN HUMULIN R 100 UNIT/ML 3ML IV SCH (06:09)
[2020-04-24] MEDS: POTASSIUM CHLORIDE 20MEQ/100ML 100 ML IV PRN ×2 (07:01→09:33)
[2020-04-24] MEDS: RASAGILINE MESYLATE 1 MG PO SCH (07:30)
[2020-04-24] MEDS: VITAMIN D 125MCG PO SCH (09:00)
[2020-04-24] MEDS: FLUCONAZOLE 400 MG/NS 200 ML 200 ML IV SCH (09:34)
[2020-04-24] MEDS: MEROPENEM 1 GM VIAL IVP SCH ×2 (09:34→21:12)
[2020-04-24] MEDS: CARBIDOPA-LEVODOPA 25-100 TAB PO SCH ×4 (09:34→21:02)
[2020-04-24] MEDS: AMIODARONE 200 MG TABLET PO SCH ×2 (09:35→21:02)
[2020-04-24] MEDS: SENNOSIDES 8.6 MG TABLET PO SCH (09:35)
[2020-04-24] MEDS: Vitamin B Complex/Vit C/Folic Acid PO SCH (09:35)
[2020-04-24] MEDS: VITAMIN E 400 UNIT CAPSULE PO SCH (09:35)
[2020-04-24] MEDS: DOCUSATE NA 100MG/10ML UDCUP PO SCH ×2 (09:35→21:07)
[2020-04-24] MEDS: METOPROLOL TARTRATE 25 MG TAB PO SCH ×2 (09:35→21:02)
[2020-04-24] MEDS: FUROSEMIDE 40MG VIAL IV SCH (09:36)
[2020-04-24] MEDS: CALCIUM CARB 500MG PO SCH (09:36)
[2020-04-24] MEDS: TAMSULOSIN HCL 0.4 MG CAP.ER.24H PO SCH ×2 (09:36→21:02)
[2020-04-24] MEDS: ASPIRIN 81MG CHEW TAB PO SCH (09:36)
[2020-04-24] MEDS: HONEY 1 APPL/ML TUBE TP SCH ×2 (09:36→21:07)
[2020-04-24 11:45] LABS: ABG HCO3 26.8 mmol/L (21.0-28.0); ABG OXYGEN SATURATION 98.3 % (95.0-99.0); ABG PCO2 35 mmHg (35-48)
[2020-04-24] MEDS ORDERED: VANCOMYCIN PROTOCOL PER PHARMACY IV SCH (11:45)
[2020-04-24] MEDS: VANCOMYCIN 1G 1.25 GM in 0.9% NACL 250ML 250 ML IV SCH (13:00)
[2020-04-24] MEDS: LACTULOSE 20 GM/30 ML UDCUP NG SCH ×2 (13:51→18:04)
[2020-04-24] MEDS: DEXTROSE 5%-WATER 1,000 ML IV SCH ×2 (13:59→18:03)
[2020-04-24] MEDS: ACETAMINOPHEN 325 MG TAB PO PRN (14:11)
[2020-04-24] MEDS: KAYEXALATE 15GM/60ML PO SCH ×2 (19:35→19:40)
[2020-04-24] MEDS: INSULIN GLARGINE 100 UNITS/ML 10 ML VIAL SQ SCH (21:05)
[2020-04-25] VITALS (45 sets, daily range): BP systolic 115–151; BP diastolic 43–60
[2020-04-25] MEDS: LACTULOSE 20 GM/30 ML UDCUP NG SCH ×5 (00:17→23:58)
[2020-04-25] MEDS: INSULIN HUMULIN R 100 UNIT/ML 3ML SQ SCH ×4 (00:20→17:35)
[2020-04-25] MEDS: METOCLOPRAMIDE 10 MG/2 ML VIAL IVP SCH ×5 (00:22→23:58)
[2020-04-25] MEDS: DEXTROSE 50%-WATER 25 GM/50 ML VIAL IV SCH (03:15)
[2020-04-25] MEDS: INSULIN HUMULIN R 100 UNIT/ML 3ML IV SCH (03:15)
[2020-04-25] MEDS: CALCIUM GLUC 1GM/10ML VIAL IV SCH (03:15)
[2020-04-25 04:37] LABS: BASOPHILS % (AUTO) 0.2 % (0.0-5.0); EOSINOPHILS % (AUTO) 1.1 % (0.0-8.0); HEMATOCRIT 23.5 % (42-54); LYMPHOCYTES % (AUTO) 7.1 % (21.0-51.0); MEAN CORPUSCULAR HEMOGLOBIN 28.9 pg (27.0-33.0); MEAN CORPUSCULAR HGB CONC 32.3 g/dL (32.0-36.0); MEAN CORPUSCULAR VOLUME 89.4 fL (79-99); MONOCYTES % (AUTO) 4.9 % (3.0-13.0); NEUTROPHILS % (AUTO) 85.8 % (40.0-77.0); PLATELET COUNT (AUTO) 117 K/uL (130-400); RED BLOOD CELL COUNT(AUTO) 2.63 MIL/uL (4.50-6.20); RED CELL DISTRIBUTION WIDTH 18.3 % (11.0-15.5); WHITE BLOOD COUNT (AUTO) 5.7 K/uL (4.8-10.8)
[2020-04-25] MEDS: CHLORHEXIDINE GLUCONATE 473 ML MOUTHWASH MM SCH ×4 (04:47→22:03)
[2020-04-25] MEDS: ARTIFICAL TEARS SOL 15 ML OU SCH ×4 (04:48→22:04)
[2020-04-25 05:00] LABS: ALBUMIN 1.1 g/dL (3.5-5.0); BILIRUBIN,TOTAL 0.6 mg/dL (0.2-1.0); CREATININE 2.5 mg/dL (0.5-1.5); CRP QUANTITATIVE 125.6 mg/L (0.00-9.0); POTASSIUM 3.1 mmol/L (3.5-5.1); TOTAL PROTEIN, SERUM 4.4 g/dL (6.0-8.3)
[2020-04-25] MEDS: POTASSIUM CHLORIDE 20MEQ/100ML 100 ML IV PRN (06:32)
[2020-04-25] MEDS: RASAGILINE MESYLATE 1 MG PO SCH (07:30)
[2020-04-25] MEDS: FUROSEMIDE 40MG VIAL IV SCH ×2 (08:50→17:34)
[2020-04-25] MEDS: CARBIDOPA-LEVODOPA 25-100 TAB PO SCH ×4 (08:51→21:52)
[2020-04-25] MEDS: TAMSULOSIN HCL 0.4 MG CAP.ER.24H PO SCH ×2 (08:51→21:52)
[2020-04-25] MEDS: METOPROLOL TARTRATE 25 MG TAB PO SCH ×2 (08:51→21:52)
[2020-04-25] MEDS: SENNOSIDES 8.6 MG TABLET PO SCH (08:51)
[2020-04-25] MEDS: AMIODARONE 200 MG TABLET PO SCH ×2 (08:51→21:52)
[2020-04-25] MEDS: Vitamin B Complex/Vit C/Folic Acid PO SCH (08:51)
[2020-04-25] MEDS: FLUCONAZOLE 400 MG/NS 200 ML 200 ML IV SCH (08:51)
[2020-04-25] MEDS: CALCIUM CARB 500MG PO SCH (08:52)
[2020-04-25] MEDS: EPOETIN ALFA-EPBX (ESRD) 10,000 UNIT/ML VIAL SQ SCH (08:52)
[2020-04-25] MEDS: DOCUSATE NA 100MG/10ML UDCUP PO SCH ×2 (08:52→21:52)
[2020-04-25] MEDS: MEROPENEM 1 GM VIAL IVP SCH ×2 (08:52→21:52)
[2020-04-25] MEDS: ASPIRIN 81MG CHEW TAB PO SCH (08:52)
[2020-04-25] MEDS: VITAMIN E 400 UNIT CAPSULE PO SCH (08:52)
[2020-04-25] MEDS: DEXTROSE 5%-WATER 1,000 ML IV SCH ×2 (08:52→12:31)
[2020-04-25] MEDS: VITAMIN D 125MCG PO SCH (08:53)
[2020-04-25] MEDS: HONEY 1 APPL/ML TUBE TP SCH ×2 (08:53→21:53)
[2020-04-25] MEDS: VANCOMYCIN 1G 1.25 GM in 0.9% NACL 250ML 250 ML IV SCH (12:49)
[2020-04-25] MEDS: KAYEXALATE 15GM/60ML PO SCH ×2 (21:15→21:30)
[2020-04-25] MEDS: INSULIN GLARGINE 100 UNITS/ML 10 ML VIAL SQ SCH (22:02)
[2020-04-26] VITALS (65 sets, daily range): BP systolic 99–143; BP diastolic 32–56
[2020-04-26] MEDS: FUROSEMIDE 40MG VIAL IV SCH (00:02)
[2020-04-26] MEDS: INSULIN HUMULIN R 100 UNIT/ML 3ML SQ SCH ×4 (00:08→17:56)
[2020-04-26] MEDS: CALCIUM GLUC 1GM/10ML VIAL IV SCH (01:59)
[2020-04-26] MEDS: DEXTROSE 50%-WATER 25 GM/50 ML VIAL IV SCH (01:59)
[2020-04-26] MEDS: INSULIN HUMULIN R 100 UNIT/ML 3ML IV SCH (02:00)
[2020-04-26 04:45] LABS: BASOPHILS % (AUTO) 0.3 % (0.0-5.0); EOSINOPHILS % (AUTO) 2.4 % (0.0-8.0); HEMATOCRIT 24.8 % (42-54); MEAN CORPUSCULAR HEMOGLOBIN 27.8 pg (27.0-33.0); MEAN CORPUSCULAR VOLUME 89.5 fL (79-99); MONOCYTES % (AUTO) 5.8 % (3.0-13.0); NEUTROPHILS % (AUTO) 80.5 % (40.0-77.0); NUCLEATED RED BLOOD CELLS 0.6 % (0.0-0.19); PLATELET COUNT (AUTO) 141 K/uL (130-400); RED BLOOD CELL COUNT(AUTO) 2.77 MIL/uL (4.50-6.20); RED CELL DISTRIBUTION WIDTH 18.9 % (11.0-15.5); WHITE BLOOD COUNT (AUTO) 6.2 K/uL (4.8-10.8)
[2020-04-26 05:09] LABS: BILIRUBIN,TOTAL 0.4 mg/dL (0.2-1.0); CREATININE 2.6 mg/dL (0.5-1.5); TOTAL PROTEIN, SERUM 4.4 g/dL (6.0-8.3)
[2020-04-26 05:18] LABS: POTASSIUM 2.9 mmol/L (3.5-5.1)
[2020-04-26] MEDS: DEXTROSE 5%-WATER 1,000 ML IV SCH ×2 (06:00→09:05)
[2020-04-26] MEDS: LACTULOSE 20 GM/30 ML UDCUP NG SCH (06:00)
[2020-04-26] MEDS: ARTIFICAL TEARS SOL 15 ML OU SCH ×4 (06:42→21:45)
[2020-04-26] MEDS: CHLORHEXIDINE GLUCONATE 473 ML MOUTHWASH MM SCH ×4 (06:42→21:45)
[2020-04-26] MEDS: METOCLOPRAMIDE 10 MG/2 ML VIAL IVP SCH (06:43)
[2020-04-26] MEDS: RASAGILINE MESYLATE 1 MG PO SCH (07:30)
[2020-04-26] MEDS: FLUCONAZOLE 200 MG/NS 100 ML 100 ML IV SCH (09:03)
[2020-04-26] MEDS: METOPROLOL TARTRATE 25 MG TAB PO SCH ×2 (09:04→21:38)
[2020-04-26] MEDS: CALCIUM CARB 500MG PO SCH (09:04)
[2020-04-26] MEDS: AMIODARONE 200 MG TABLET PO SCH ×2 (09:04→21:38)
[2020-04-26] MEDS: POTASSIUM CHLORIDE 10% ELIXIR 20 MEQ/15 ML UDCUP PO SCH ×3 (09:04→21:38)
[2020-04-26] MEDS: CARBIDOPA-LEVODOPA 25-100 TAB PO SCH ×4 (09:04→21:37)
[2020-04-26] MEDS: Vitamin B Complex/Vit C/Folic Acid PO SCH (09:04)
[2020-04-26] MEDS: VITAMIN E 400 UNIT CAPSULE PO SCH (09:04)
[2020-04-26] MEDS: TAMSULOSIN HCL 0.4 MG CAP.ER.24H PO SCH ×2 (09:04→21:37)
[2020-04-26] MEDS: ASPIRIN 81MG CHEW TAB PO SCH (09:05)
[2020-04-26] MEDS: HONEY 1 APPL/ML TUBE TP SCH ×2 (09:05→21:39)
[2020-04-26] MEDS: VITAMIN D 125MCG PO SCH (09:05)
[2020-04-26] MEDS: VANCOMYCIN 1G 1.25 GM in 0.9% NACL 250ML 250 ML IV SCH (12:46)
[2020-04-26] MEDS: INSULIN GLARGINE 100 UNITS/ML 10 ML VIAL SQ SCH (21:41)
[2020-04-27] VITALS (56 sets, daily range): BP systolic 87–132; BP diastolic 38–58
[2020-04-27] MEDS: DEXTROSE 50%-WATER 25 GM/50 ML VIAL IV SCH ×2 (01:38→23:42)
[2020-04-27] MEDS: DEXTROSE 5%-WATER 1,000 ML IV SCH ×4 (01:38→23:42)
[2020-04-27] MEDS: CALCIUM GLUC 1GM/10ML VIAL IV SCH (01:38)
[2020-04-27] MEDS: INSULIN HUMULIN R 100 UNIT/ML 3ML IV SCH ×2 (01:39→23:42)
[2020-04-27] MEDS: ARTIFICAL TEARS SOL 15 ML OU SCH ×3 (04:45→16:24)
[2020-04-27] MEDS: CHLORHEXIDINE GLUCONATE 473 ML MOUTHWASH MM SCH ×3 (04:45→16:24)
[2020-04-27 05:30] LABS: BASOPHILS % (AUTO) 0.1 % (0.0-5.0); EOSINOPHILS % (AUTO) 5.7 % (0.0-8.0); HEMATOCRIT 25.2 % (42-54); MEAN CORPUSCULAR HEMOGLOBIN 27.6 pg (27.0-33.0); MEAN CORPUSCULAR HGB CONC 30.6 g/dL (32.0-36.0); MEAN CORPUSCULAR VOLUME 90.3 fL (79-99); MONOCYTES % (AUTO) 4.7 % (3.0-13.0); NEUTROPHILS % (AUTO) 80.9 % (40.0-77.0); NUCLEATED RED BLOOD CELLS 0.9 % (0.0-0.19); PLATELET COUNT (AUTO) 161 K/uL (130-400); RED BLOOD CELL COUNT(AUTO) 2.79 MIL/uL (4.50-6.20); RED CELL DISTRIBUTION WIDTH 19.4 % (11.0-15.5); WHITE BLOOD COUNT (AUTO) 7.7 K/uL (4.8-10.8)
[2020-04-27 05:44] LABS: BILIRUBIN,TOTAL 0.5 mg/dL (0.2-1.0); CREATININE 2.4 mg/dL (0.5-1.5); POTASSIUM 4.2 mmol/L (3.5-5.1); TOTAL PROTEIN, SERUM 4.4 g/dL (6.0-8.3)
[2020-04-27] MEDS: INSULIN HUMULIN R 100 UNIT/ML 3ML SQ SCH ×4 (06:58→16:26)
[2020-04-27] MEDS: CALCIUM CARB 500MG PO SCH (08:55)
[2020-04-27] MEDS: CARBIDOPA-LEVODOPA 25-100 TAB PO SCH ×4 (08:55→20:55)
[2020-04-27] MEDS: METOPROLOL TARTRATE 25 MG TAB PO SCH ×2 (08:55→20:58)
[2020-04-27] MEDS: ASPIRIN 81MG CHEW TAB PO SCH (08:56)
[2020-04-27] MEDS: AMIODARONE 200 MG TABLET PO SCH ×2 (08:56→20:55)
[2020-04-27] MEDS: Vitamin B Complex/Vit C/Folic Acid PO SCH (08:56)
[2020-04-27] MEDS: TAMSULOSIN HCL 0.4 MG CAP.ER.24H PO SCH ×2 (08:56→20:55)
[2020-04-27] MEDS: VITAMIN E 400 UNIT CAPSULE PO SCH (08:59)
[2020-04-27] MEDS: HONEY 1 APPL/ML TUBE TP SCH ×2 (08:59→20:57)
[2020-04-27] MEDS: POTASSIUM CHLORIDE 10% ELIXIR 20 MEQ/15 ML UDCUP PO SCH (09:00)
[2020-04-27] MEDS: VITAMIN D 125MCG PO SCH (09:01)
[2020-04-27] MEDS: RASAGILINE MESYLATE 1 MG PO SCH (09:02)
[2020-04-27] MEDS: FLUCONAZOLE 200 MG/NS 100 ML 100 ML IV SCH (09:02)
[2020-04-27] MEDS: VANCOMYCIN 1G 1.25 GM in 0.9% NACL 250ML 250 ML IV SCH (12:46)
[2020-04-27] MEDS: NEOMYCIN SULFATE 500 MG TAB PO SCH ×2 (13:49→20:55)
[2020-04-27] MEDS: INSULIN GLARGINE 100 UNITS/ML 10 ML VIAL SQ SCH (20:57)
[2020-04-28] VITALS (51 sets, daily range): BP systolic 66–137; BP diastolic 33–68
[2020-04-28] MEDS: INSULIN HUMULIN R 100 UNIT/ML 3ML SQ SCH ×4 (00:31→17:31)
[2020-04-28] MEDS: CHLORHEXIDINE GLUCONATE 473 ML MOUTHWASH MM SCH ×5 (00:33→22:45)
[2020-04-28] MEDS: ARTIFICAL TEARS SOL 15 ML OU SCH ×5 (00:33→22:45)
[2020-04-28 04:54] LABS: BASOPHILS % (AUTO) 0.1 % (0.0-5.0); EOSINOPHILS % (AUTO) 5.9 % (0.0-8.0); HEMATOCRIT 25.2 % (42-54); LYMPHOCYTES % (AUTO) 6.7 % (21.0-51.0); MEAN CORPUSCULAR HEMOGLOBIN 27.2 pg (27.0-33.0); MEAN CORPUSCULAR HGB CONC 29.8 g/dL (32.0-36.0); MEAN CORPUSCULAR VOLUME 91.3 fL (79-99); MONOCYTES % (AUTO) 3.8 % (3.0-13.0); NEUTROPHILS % (AUTO) 82.9 % (40.0-77.0); NUCLEATED RED BLOOD CELLS 0.7 % (0.0-0.19); PLATELET COUNT (AUTO) 167 K/uL (130-400); RED BLOOD CELL COUNT(AUTO) 2.76 MIL/uL (4.50-6.20); RED CELL DISTRIBUTION WIDTH 19.8 % (11.0-15.5); WHITE BLOOD COUNT (AUTO) 8.4 K/uL (4.8-10.8)
[2020-04-28 05:30] LABS: ALBUMIN 0.9 g/dL (3.5-5.0); BILIRUBIN,TOTAL 0.4 mg/dL (0.2-1.0); CREATININE 1.9 mg/dL (0.5-1.5); POTASSIUM 3.9 mmol/L (3.5-5.1); TOTAL PROTEIN, SERUM 4.4 g/dL (6.0-8.3)
[2020-04-28] MEDS: RASAGILINE MESYLATE 1 MG PO SCH (07:30)
[2020-04-28] MEDS ORDERED: VANCOMYCIN 1G/250ML KIT 250 ML IV SCH (09:00)
[2020-04-28] MEDS: METOPROLOL TARTRATE 25 MG TAB PO SCH ×2 (09:42→21:12)
[2020-04-28] MEDS: VITAMIN E 400 UNIT CAPSULE PO SCH (09:42)
[2020-04-28] MEDS: TAMSULOSIN HCL 0.4 MG CAP.ER.24H PO SCH ×2 (09:42→21:12)
[2020-04-28] MEDS: ASPIRIN 81MG CHEW TAB PO SCH (09:42)
[2020-04-28] MEDS: CALCIUM CARB 500MG PO SCH (09:42)
[2020-04-28] MEDS: FLUCONAZOLE 200 MG/NS 100 ML 100 ML IV SCH (09:42)
[2020-04-28] MEDS: Vitamin B Complex/Vit C/Folic Acid PO SCH (09:42)
[2020-04-28] MEDS: AMIODARONE 200 MG TABLET PO SCH ×2 (09:42→21:13)
[2020-04-28] MEDS: VITAMIN D 125MCG PO SCH (09:43)
[2020-04-28] MEDS: NEOMYCIN SULFATE 500 MG TAB PO SCH ×3 (09:43→21:13)
[2020-04-28] MEDS: CARBIDOPA-LEVODOPA 25-100 TAB PO SCH ×4 (09:43→21:12)
[2020-04-28] MEDS: HONEY 1 APPL/ML TUBE TP SCH ×2 (09:45→21:22)
[2020-04-28] MEDS: MIDODRINE HCL 5 MG TABLET PO SCH ×2 (13:32→21:12)
[2020-04-28] MEDS: DEXTROSE 5%-WATER 1,000 ML IV SCH ×2 (17:30→20:30)
[2020-04-28] MEDS: NOREPINEPHRIN 4MG/NS 250ML 250 ML IV SCH (18:32)
[2020-04-28] MEDS: INSULIN GLARGINE 100 UNITS/ML 10 ML VIAL SQ SCH (21:22)
[2020-04-29] VITALS (73 sets, daily range): BP systolic 89–151; BP diastolic 31–72
[2020-04-29] MEDS: INSULIN HUMULIN R 100 UNIT/ML 3ML SQ SCH ×4 (01:05→18:08)
[2020-04-29] MEDS: INSULIN HUMULIN R 100 UNIT/ML 3ML IV SCH (01:07)
[2020-04-29] MEDS: DEXTROSE 50%-WATER 25 GM/50 ML VIAL IV SCH (01:07)
[2020-04-29] MEDS: CHLORHEXIDINE GLUCONATE 473 ML MOUTHWASH MM SCH ×4 (06:00→21:37)
[2020-04-29] MEDS: ARTIFICAL TEARS SOL 15 ML OU SCH ×4 (06:00→21:37)
[2020-04-29] MEDS: MIDODRINE HCL 5 MG TABLET PO SCH ×3 (06:00→21:11)
[2020-04-29] MEDS: RASAGILINE MESYLATE 1 MG PO SCH (07:30)
[2020-04-29] MEDS: FLUCONAZOLE 200 MG/NS 100 ML 100 ML IV SCH (09:00)
[2020-04-29] MEDS: AMIODARONE 200 MG TABLET PO SCH ×2 (09:00→21:11)
[2020-04-29] MEDS: METOPROLOL TARTRATE 25 MG TAB PO SCH ×2 (09:00→21:00)
[2020-04-29] MEDS: HONEY 1 APPL/ML TUBE TP SCH ×2 (10:09→21:37)
[2020-04-29] MEDS: NEOMYCIN SULFATE 500 MG TAB PO SCH ×3 (10:17→21:11)
[2020-04-29] MEDS: ASPIRIN 81MG CHEW TAB PO SCH (10:17)
[2020-04-29] MEDS: Vitamin B Complex/Vit C/Folic Acid PO SCH (10:17)
[2020-04-29] MEDS: CALCIUM CARB 500MG PO SCH (10:17)
[2020-04-29] MEDS: CARBIDOPA-LEVODOPA 25-100 TAB PO SCH ×4 (10:17→21:12)
[2020-04-29] MEDS: VITAMIN E 400 UNIT CAPSULE PO SCH (10:17)
[2020-04-29] MEDS: TAMSULOSIN HCL 0.4 MG CAP.ER.24H PO SCH ×2 (10:19→21:11)
[2020-04-29] MEDS: VITAMIN D 125MCG PO SCH (10:19)
[2020-04-29] MEDS: NOREPINEPHRIN 4MG/NS 250ML 250 ML IV SCH (13:10)
[2020-04-29] MEDS: DEXTROSE 5%-WATER 1,000 ML IV SCH ×2 (14:00→17:24)
[2020-04-29] MEDS ORDERED: PROTAMINE SULFATE 10 MG/ML 5 ML VIAL ONE (17:37)
[2020-04-29] MEDS: INSULIN GLARGINE 100 UNITS/ML 10 ML VIAL SQ SCH (21:28)
[2020-04-30] VITALS (47 sets, daily range): BP systolic 71–160; BP diastolic 32–70
[2020-04-30] MEDS: INSULIN HUMULIN R 100 UNIT/ML 3ML IV SCH (01:12)
[2020-04-30] MEDS: DEXTROSE 50%-WATER 25 GM/50 ML VIAL IV SCH (01:12)
[2020-04-30 05:56] LABS: BASOPHILS % (AUTO) 0.1 % (0.0-5.0); EOSINOPHILS % (AUTO) 4.2 % (0.0-8.0); HEMATOCRIT 22.4 % (42-54); LYMPHOCYTES % (AUTO) 12.2 % (21.0-51.0); MEAN CORPUSCULAR HEMOGLOBIN 27.2 pg (27.0-33.0); MEAN CORPUSCULAR HGB CONC 29.5 g/dL (32.0-36.0); MEAN CORPUSCULAR VOLUME 92.2 fL (79-99); MONOCYTES % (AUTO) 4.2 % (3.0-13.0); NEUTROPHILS % (AUTO) 78.5 % (40.0-77.0); PLATELET COUNT (AUTO) 208 K/uL (130-400); RED BLOOD CELL COUNT(AUTO) 2.43 MIL/uL (4.50-6.20); RED CELL DISTRIBUTION WIDTH 19.9 % (11.0-15.5); WHITE BLOOD COUNT (AUTO) 7.1 K/uL (4.8-10.8)
[2020-04-30] MEDS: MIDODRINE HCL 5 MG TABLET PO SCH ×3 (06:01→21:04)
[2020-04-30] MEDS: INSULIN HUMULIN R 100 UNIT/ML 3ML SQ SCH ×4 (06:02→18:46)
[2020-04-30] MEDS: ARTIFICAL TEARS SOL 15 ML OU SCH ×4 (06:03→22:45)
[2020-04-30] MEDS: CHLORHEXIDINE GLUCONATE 473 ML MOUTHWASH MM SCH ×4 (06:03→22:45)
[2020-04-30 06:21] LABS: CREATININE 2.4 mg/dL (0.5-1.5); PHOSPHORUS 4.9 mg/dL (2.5-4.9)
[2020-04-30] MEDS: FLUCONAZOLE 200 MG/NS 100 ML 100 ML IV SCH (09:00)
[2020-04-30] MEDS: RASAGILINE MESYLATE 1 MG PO SCH (09:00)
[2020-04-30] MEDS: AMIODARONE 200 MG TABLET PO SCH ×2 (09:00→21:05)
[2020-04-30] MEDS: VITAMIN D 125MCG PO SCH (09:00)
[2020-04-30] MEDS: ASPIRIN 81MG CHEW TAB PO SCH (09:01)
[2020-04-30] MEDS: VITAMIN E 400 UNIT CAPSULE PO SCH (09:01)
[2020-04-30] MEDS: TAMSULOSIN HCL 0.4 MG CAP.ER.24H PO SCH ×2 (09:01→21:04)
[2020-04-30] MEDS: Vitamin B Complex/Vit C/Folic Acid PO SCH (09:01)
[2020-04-30] MEDS: METOPROLOL TARTRATE 25 MG TAB PO SCH ×2 (09:01→21:05)
[2020-04-30] MEDS: NEOMYCIN SULFATE 500 MG TAB PO SCH ×3 (09:01→21:04)
[2020-04-30] MEDS: DEXTROSE 5%-WATER 1,000 ML IV SCH ×2 (09:02→11:59)
[2020-04-30] MEDS: CALCIUM CARB 500MG PO SCH (09:02)
[2020-04-30] MEDS: CARBIDOPA-LEVODOPA 25-100 TAB PO SCH ×4 (09:02→21:04)
[2020-04-30] MEDS: HONEY 1 APPL/ML TUBE TP SCH ×2 (09:02→21:17)
[2020-04-30] MEDS ORDERED: 0.9% NACL 250ML 250 ML IV ONE (09:47)
[2020-04-30 15:39] LABS: HEMATOCRIT 28.4 % (42-54)
[2020-04-30] MEDS: INSULIN GLARGINE 100 UNITS/ML 10 ML VIAL SQ SCH (21:16)
[2020-05-01] VITALS (25 sets, daily range): BP systolic 52–149; BP diastolic 32–61
[2020-05-01] MEDS: INSULIN HUMULIN R 100 UNIT/ML 3ML SQ SCH ×4 (00:30→17:18)
[2020-05-01] MEDS: DEXTROSE 50%-WATER 25 GM/50 ML VIAL IV SCH (02:43)
[2020-05-01] MEDS: INSULIN HUMULIN R 100 UNIT/ML 3ML IV SCH (02:44)
[2020-05-01] MEDS: DEXTROSE 5%-WATER 1,000 ML IV SCH ×3 (06:00→22:23)
[2020-05-01] MEDS: ARTIFICAL TEARS SOL 15 ML OU SCH ×4 (06:04→22:11)
[2020-05-01] MEDS: CHLORHEXIDINE GLUCONATE 473 ML MOUTHWASH MM SCH ×4 (06:04→22:11)
[2020-05-01] MEDS: MIDODRINE HCL 5 MG TABLET PO SCH ×3 (06:05→21:32)
[2020-05-01] MEDS: RASAGILINE MESYLATE 1 MG PO SCH (07:30)
[2020-05-01] MEDS: VITAMIN D 125MCG PO SCH (09:00)
[2020-05-01] MEDS: Vitamin B Complex/Vit C/Folic Acid PO SCH (09:46)
[2020-05-01] MEDS: NEOMYCIN SULFATE 500 MG TAB PO SCH ×3 (09:46→21:33)
[2020-05-01] MEDS: CARBIDOPA-LEVODOPA 25-100 TAB PO SCH ×4 (09:46→21:33)
[2020-05-01] MEDS: ASPIRIN 81MG CHEW TAB PO SCH (09:46)
[2020-05-01] MEDS: METOPROLOL TARTRATE 25 MG TAB PO SCH ×2 (09:46→21:32)
[2020-05-01] MEDS: AMIODARONE 200 MG TABLET PO SCH ×2 (09:47→21:32)
[2020-05-01] MEDS: CALCIUM CARB 500MG PO SCH (09:47)
[2020-05-01] MEDS: FLUCONAZOLE 200 MG/NS 100 ML 100 ML IV SCH (09:48)
[2020-05-01] MEDS: VITAMIN E 400 UNIT CAPSULE PO SCH (09:59)
[2020-05-01] MEDS: TAMSULOSIN HCL 0.4 MG CAP.ER.24H PO SCH ×2 (09:59→21:32)
[2020-05-01] MEDS: HONEY 1 APPL/ML TUBE TP SCH ×2 (10:01→21:00)
[2020-05-01] MEDS: FUROSEMIDE 20MG VIAL IV SCH (17:37)
[2020-05-01] MEDS: INSULIN GLARGINE 100 UNITS/ML 10 ML VIAL SQ SCH (21:37)
[2020-05-02] VITALS (29 sets, daily range): BP systolic 76–143; BP diastolic 28–60
[2020-05-02] MEDS: INSULIN HUMULIN R 100 UNIT/ML 3ML SQ SCH ×4 (00:14→18:00)
[2020-05-02] MEDS: DEXTROSE 50%-WATER 25 GM/50 ML VIAL IV SCH (03:15)
[2020-05-02] MEDS: CHLORHEXIDINE GLUCONATE 473 ML MOUTHWASH MM SCH ×4 (04:45→22:45)
[2020-05-02] MEDS: ARTIFICAL TEARS SOL 15 ML OU SCH ×4 (04:45→22:45)
[2020-05-02] MEDS: MIDODRINE HCL 5 MG TABLET PO SCH (05:51)
[2020-05-02] MEDS: FUROSEMIDE 20MG VIAL IV SCH ×2 (05:51→17:09)
[2020-05-02] MEDS: INSULIN HUMULIN R 100 UNIT/ML 3ML IV SCH (05:53)
[2020-05-02 06:03] LABS: BASOPHILS % (AUTO) 0.1 % (0.0-5.0); HEMATOCRIT 27.9 % (42-54); LYMPHOCYTES % (AUTO) 11.8 % (21.0-51.0); MEAN CORPUSCULAR HEMOGLOBIN 28.1 pg (27.0-33.0); MEAN CORPUSCULAR HGB CONC 30.5 g/dL (32.0-36.0); MEAN CORPUSCULAR VOLUME 92.1 fL (79-99); NEUTROPHILS % (AUTO) 76.5 % (40.0-77.0); PLATELET COUNT (AUTO) 250 K/uL (130-400); RED BLOOD CELL COUNT(AUTO) 3.03 MIL/uL (4.50-6.20); RED CELL DISTRIBUTION WIDTH 19.8 % (11.0-15.5); WHITE BLOOD COUNT (AUTO) 7.3 K/uL (4.8-10.8)
[2020-05-02 06:30] LABS: CREATININE 2.5 mg/dL (0.5-1.5)
[2020-05-02] MEDS: DEXTROSE 5%-WATER 1,000 ML IV SCH (07:03)
[2020-05-02] MEDS: RASAGILINE MESYLATE 1 MG PO SCH (07:26)
[2020-05-02] MEDS ORDERED: ALBUMIN (HUMAN) 25% 100 ML IV PRN (08:30)
[2020-05-02] MEDS: AMIODARONE 200 MG TABLET PO SCH ×2 (09:00→21:00)
[2020-05-02] MEDS: VITAMIN D 125MCG PO SCH (09:00)
[2020-05-02] MEDS: Vitamin B Complex/Vit C/Folic Acid PO SCH (09:44)
[2020-05-02] MEDS: CALCIUM CARB 500MG PO SCH (09:44)
[2020-05-02] MEDS: CARBIDOPA-LEVODOPA 25-100 TAB PO SCH ×2 (09:44→13:43)
[2020-05-02] MEDS: NEOMYCIN SULFATE 500 MG TAB PO SCH ×3 (09:44→22:26)
[2020-05-02] MEDS: METOPROLOL TARTRATE 25 MG TAB PO SCH ×2 (09:44→21:00)
[2020-05-02] MEDS: TAMSULOSIN HCL 0.4 MG CAP.ER.24H PO SCH (09:44)
[2020-05-02] MEDS: VITAMIN E 400 UNIT CAPSULE PO SCH (09:44)
[2020-05-02] MEDS: EPOETIN ALFA-EPBX (ESRD) 10,000 UNIT/ML VIAL SQ SCH (09:45)
[2020-05-02] MEDS: FLUCONAZOLE 200 MG/NS 100 ML 100 ML IV SCH (09:45)
[2020-05-02] MEDS: HONEY 1 APPL/ML TUBE TP SCH ×2 (09:48→21:00)
[2020-05-02] MEDS ORDERED: KETAMINE 50MG/ML SYRINGE 50 MG/ML DISP.SYRIN IV ONE (11:26)
[2020-05-02] MEDS ORDERED: ROCURONIUM 10MG/1ML SYR 10 MG/ML ML ONE (11:28)
[2020-05-02] MEDS ORDERED: GLYCOPYRROLATE 1 MG/5 ML SYRINGE ONE (11:28)
[2020-05-02] MEDS ORDERED: CLINDAMYCIN 900MG/6ML INJ ONE (11:38)
[2020-05-02] MEDS: ALBUMIN (HUMAN) 25% 100 ML IV SCH ×4 (12:00→22:47)
[2020-05-02] MEDS ORDERED: EPHEDRINE SULFATE 50 MG/ML AMPULE ONE (12:06)
[2020-05-02] MEDS: NOREPINEPHRIN 4MG/NS 250ML 250 ML IV SCH (14:57)
[2020-05-02] MEDS: NOREPINEPHRINE BITARTRATE 8 MG/NS 250ML IV SCH ×2 (22:11)
[2020-05-02] MEDS: INSULIN GLARGINE 100 UNITS/ML 10 ML VIAL SQ SCH (22:27)
[2020-05-03] VITALS (60 sets, daily range): BP systolic 74–145; BP diastolic 29–63
[2020-05-03] MEDS: DEXTROSE 5%-WATER 1,000 ML IV SCH ×3 (00:30→20:30)
[2020-05-03] MEDS: INSULIN HUMULIN R 100 UNIT/ML 3ML IV SCH (03:15)
[2020-05-03] MEDS: DEXTROSE 50%-WATER 25 GM/50 ML VIAL IV SCH (03:15)
[2020-05-03 04:39] LABS: BASOPHILS % (AUTO) 0.3 % (0.0-5.0); EOSINOPHILS % (AUTO) 1.2 % (0.0-8.0); HEMATOCRIT 24.7 % (42-54); LYMPHOCYTES % (AUTO) 11.5 % (21.0-51.0); MEAN CORPUSCULAR HEMOGLOBIN 28.6 pg (27.0-33.0); MEAN CORPUSCULAR HGB CONC 31.2 g/dL (32.0-36.0); MEAN CORPUSCULAR VOLUME 91.8 fL (79-99); MONOCYTES % (AUTO) 8.6 % (3.0-13.0); NEUTROPHILS % (AUTO) 76.8 % (40.0-77.0); NUCLEATED RED BLOOD CELLS 0.3 % (0.0-0.19); PLATELET COUNT (AUTO) 276 K/uL (130-400); RED BLOOD CELL COUNT(AUTO) 2.69 MIL/uL (4.50-6.20); RED CELL DISTRIBUTION WIDTH 19.5 % (11.0-15.5); WHITE BLOOD COUNT (AUTO) 7.5 K/uL (4.8-10.8)
[2020-05-03] MEDS: ARTIFICAL TEARS SOL 15 ML OU SCH ×4 (04:45→22:45)
[2020-05-03] MEDS: CHLORHEXIDINE GLUCONATE 473 ML MOUTHWASH MM SCH ×4 (04:45→22:45)
[2020-05-03 04:54] LABS: CREATININE 2.5 mg/dL (0.5-1.5); POTASSIUM 4.1 mmol/L (3.5-5.1)
[2020-05-03] MEDS ORDERED: 0.9% NACL 250ML 250 ML IV ONE (05:45)
[2020-05-03] MEDS ORDERED: NOREPINEPHRINE BITARTRATE 1 MG/1 ML ML IV ONE (05:45)
[2020-05-03] MEDS: FUROSEMIDE 20MG VIAL IV SCH ×2 (05:52→17:31)
[2020-05-03] MEDS: NOREPINEPHRINE BITARTRATE 8 MG/NS 250ML IV SCH ×4 (05:53→17:19)
[2020-05-03] MEDS: INSULIN HUMULIN R 100 UNIT/ML 3ML SQ SCH ×4 (06:00→17:31)
[2020-05-03] MEDS: RASAGILINE MESYLATE 1 MG PO SCH (08:49)
[2020-05-03] MEDS: ALBUMIN (HUMAN) 25% 100 ML IV SCH (08:49)
[2020-05-03] MEDS: NEOMYCIN SULFATE 500 MG TAB PO SCH ×3 (08:50→21:34)
[2020-05-03] MEDS: AMIODARONE 200 MG TABLET PO SCH ×2 (08:50→21:34)
[2020-05-03] MEDS: HONEY 1 APPL/ML TUBE TP SCH ×2 (08:50→21:00)
[2020-05-03] MEDS: FLUCONAZOLE 200 MG/NS 100 ML 100 ML IV SCH (08:50)
[2020-05-03] MEDS: INSULIN GLARGINE 100 UNITS/ML 10 ML VIAL SQ SCH (21:00)
[2020-05-04] VITALS (52 sets, daily range): BP systolic 83–127; BP diastolic 27–60
[2020-05-04] MEDS: NOREPINEPHRINE BITARTRATE 8 MG/NS 250ML IV SCH ×4 (03:14→17:36)
[2020-05-04] MEDS: DEXTROSE 50%-WATER 25 GM/50 ML VIAL IV SCH (03:15)
[2020-05-04] MEDS: INSULIN HUMULIN R 100 UNIT/ML 3ML IV SCH (03:15)
[2020-05-04] MEDS: CHLORHEXIDINE GLUCONATE 473 ML MOUTHWASH MM SCH ×4 (04:45→22:44)
[2020-05-04] MEDS: ARTIFICAL TEARS SOL 15 ML OU SCH ×4 (04:45→22:44)
[2020-05-04] MEDS: INSULIN HUMULIN R 100 UNIT/ML 3ML SQ SCH ×4 (05:28→17:34)
[2020-05-04] MEDS: FUROSEMIDE 20MG VIAL IV SCH ×2 (05:46→17:47)
[2020-05-04 06:27] LABS: BASOPHILS % (AUTO) 0.2 % (0.0-5.0); EOSINOPHILS % (AUTO) 0.4 % (0.0-8.0); HEMATOCRIT 26.1 % (42-54); LYMPHOCYTES % (AUTO) 7.9 % (21.0-51.0); MEAN CORPUSCULAR HEMOGLOBIN 28.7 pg (27.0-33.0); MEAN CORPUSCULAR HGB CONC 29.9 g/dL (32.0-36.0); MONOCYTES % (AUTO) 8.2 % (3.0-13.0); NEUTROPHILS % (AUTO) 80.8 % (40.0-77.0); PLATELET COUNT (AUTO) 341 K/uL (130-400); RED BLOOD CELL COUNT(AUTO) 2.72 MIL/uL (4.50-6.20); RED CELL DISTRIBUTION WIDTH 19.8 % (11.0-15.5)
[2020-05-04 06:53] LABS: ALBUMIN 1.6 g/dL (3.5-5.0); BILIRUBIN,TOTAL 0.5 mg/dL (0.2-1.0); CREATININE 2.9 mg/dL (0.5-1.5); POTASSIUM 4.6 mmol/L (3.5-5.1); TOTAL PROTEIN, SERUM 4.7 g/dL (6.0-8.3)
[2020-05-04] MEDS: FLUCONAZOLE 200 MG/NS 100 ML 100 ML IV SCH (08:24)
[2020-05-04] MEDS: NEOMYCIN SULFATE 500 MG TAB PO SCH ×3 (08:24→21:35)
[2020-05-04] MEDS: AMIODARONE 200 MG TABLET PO SCH ×2 (08:24→21:35)
[2020-05-04] MEDS: RASAGILINE MESYLATE 1 MG PO SCH (08:25)
[2020-05-04] MEDS: HONEY 1 APPL/ML TUBE TP SCH ×2 (08:25→21:00)
[2020-05-04] MEDS: HYDROMORPHONE 0.5 MG SYG (0.5MG/0.5ML) IVP PRN (17:55)
[2020-05-04] MEDS: INSULIN GLARGINE 100 UNITS/ML 10 ML VIAL SQ SCH (21:36)
[2020-05-05] VITALS (41 sets, daily range): BP systolic 70–132; BP diastolic 34–52
[2020-05-05] MEDS: INSULIN HUMULIN R 100 UNIT/ML 3ML SQ SCH ×4 (00:15→17:43)
[2020-05-05] MEDS: NOREPINEPHRINE BITARTRATE 8 MG/NS 250ML IV SCH ×6 (00:19→11:00)
[2020-05-05] MEDS: DEXTROSE 50%-WATER 25 GM/50 ML VIAL IV SCH (03:15)
[2020-05-05] MEDS: INSULIN HUMULIN R 100 UNIT/ML 3ML IV SCH (03:15)
[2020-05-05] MEDS: ARTIFICAL TEARS SOL 15 ML OU SCH ×4 (04:45→22:45)
[2020-05-05] MEDS: CHLORHEXIDINE GLUCONATE 473 ML MOUTHWASH MM SCH ×4 (04:45→22:45)
[2020-05-05] MEDS ORDERED: DEXTROSE 5%-WATER 100 ML IV ONE (05:24)
[2020-05-05] MEDS ORDERED: AMIODARONE 150MG VIAL ONE ×2 (05:24→05:27)
[2020-05-05] MEDS ORDERED: DEXTROSE 5%-WATER 500 ML IV ONE (05:37)
[2020-05-05] MEDS: FUROSEMIDE 20MG VIAL IV SCH ×2 (05:43→16:36)
[2020-05-05] MEDS: AMIODARONE 150MG VIAL 150 MG in DEXTROSE 5%-WATER 100 ML IV SCH (06:20)
[2020-05-05] MEDS: RASAGILINE MESYLATE 1 MG PO SCH (07:30)
[2020-05-05] MEDS: NEOMYCIN SULFATE 500 MG TAB PO SCH ×3 (09:38→21:25)
[2020-05-05] MEDS: FLUCONAZOLE 200 MG/NS 100 ML 100 ML IV SCH (09:38)
[2020-05-05] MEDS: AMIODARONE 200 MG TABLET PO SCH ×2 (09:38→21:25)
[2020-05-05] MEDS: HONEY 1 APPL/ML TUBE TP SCH ×2 (09:39→21:00)
[2020-05-05] MEDS ORDERED: NOREPINEPHRIN 8MG/250ML NS PMX 250 ML IV ONE (16:57)
[2020-05-05] MEDS ORDERED: METOPROLOL TARTRATE 25 MG TAB ONE (21:15)
[2020-05-05] MEDS: METOPROLOL TARTRATE 25 MG TAB PO SCH (21:25)
[2020-05-05] MEDS: INSULIN GLARGINE 100 UNITS/ML 10 ML VIAL SQ SCH (21:27)
[2020-05-06] VITALS (51 sets, daily range): BP systolic 80–121; BP diastolic 25–57
[2020-05-06] MEDS: NOREPINEPHRINE BITARTRATE 16 MG in 0.9% NACL 250ML 250 ML IV SCH ×3 (02:26→19:58)
[2020-05-06] MEDS: INSULIN HUMULIN R 100 UNIT/ML 3ML IV SCH (03:15)
[2020-05-06] MEDS: DEXTROSE 50%-WATER 25 GM/50 ML VIAL IV SCH (03:15)
[2020-05-06 04:13] LABS: HEMATOCRIT 27.2 % (42-54); MEAN CORPUSCULAR HEMOGLOBIN 28.8 pg (27.0-33.0); MEAN CORPUSCULAR HGB CONC 29.8 g/dL (32.0-36.0); MEAN CORPUSCULAR VOLUME 96.8 fL (79-99); NUCLEATED RED BLOOD CELLS 2.3 % (0.0-0.19); PLATELET COUNT (AUTO) 400 K/uL (130-400); RED BLOOD CELL COUNT(AUTO) 2.81 MIL/uL (4.50-6.20); RED CELL DISTRIBUTION WIDTH 19.9 % (11.0-15.5); WHITE BLOOD COUNT (AUTO) 14.9 K/uL (4.8-10.8)
[2020-05-06 04:29] LABS: BAND NEUTROPHILS % (MANUAL) 8 % (0-2); LYMPHOCYTES % (MANUAL) 5 % (22-44); MONOCYTES % (MANUAL) 15 % (2-9); SEGMENTED NEUTROPHILS % 72 % (40-70)
[2020-05-06 04:30] LABS: MAN.DIFF COMMENT-IMPRESSION MANUAL DIFFERENTIAL; PLATELET MORPHOLOGY COMMENT ADEQUATE
[2020-05-06 04:31] LABS: ALBUMIN 1.3 g/dL (3.5-5.0); BILIRUBIN,TOTAL 0.5 mg/dL (0.2-1.0); CREATININE 3.7 mg/dL (0.5-1.5); POTASSIUM 5.1 mmol/L (3.5-5.1)
[2020-05-06] MEDS: CHLORHEXIDINE GLUCONATE 473 ML MOUTHWASH MM SCH (04:45)
[2020-05-06] MEDS: ARTIFICAL TEARS SOL 15 ML OU SCH (04:45)
[2020-05-06] MEDS: FUROSEMIDE 20MG VIAL IV SCH ×2 (05:14→17:48)
[2020-05-06] MEDS: INSULIN HUMULIN R 100 UNIT/ML 3ML SQ SCH ×4 (06:38→17:48)
[2020-05-06] MEDS: AMIODARONE 200 MG TABLET PO SCH ×2 (07:49→20:42)
[2020-05-06] MEDS: NEOMYCIN SULFATE 500 MG TAB PO SCH ×3 (07:49→20:42)
[2020-05-06] MEDS: FLUCONAZOLE 200 MG/NS 100 ML 100 ML IV SCH (07:49)
[2020-05-06] MEDS: RASAGILINE MESYLATE 1 MG PO SCH (07:50)
[2020-05-06] MEDS: HONEY 1 APPL/ML TUBE TP SCH ×2 (07:50→20:44)
[2020-05-06] MEDS: TRYPSIN/BALSAM PERU/CASTOR OIL OINT 60GM TUBE TP SCH (07:50)
[2020-05-06] MEDS ORDERED: METOPROLOL TARTRATE 25 MG TAB ONE (07:57)
[2020-05-06] MEDS: METOPROLOL TARTRATE 25 MG TAB PO SCH ×2 (08:02→21:00)
[2020-05-06] MEDS: INSULIN GLARGINE 100 UNITS/ML 10 ML VIAL SQ SCH (20:44)
[2020-05-07] VITALS (68 sets, daily range): BP systolic 49–126; BP diastolic 24–78
[2020-05-07] MEDS: NOREPINEPHRINE BITARTRATE 16 MG in 0.9% NACL 250ML 250 ML IV SCH ×5 (02:34→22:30)
[2020-05-07] MEDS: DEXTROSE 50%-WATER 25 GM/50 ML VIAL IV SCH (03:13)
[2020-05-07] MEDS: INSULIN HUMULIN R 100 UNIT/ML 3ML IV SCH (03:14)
[2020-05-07 04:13] LABS: HEMATOCRIT 27.4 % (42-54); MEAN CORPUSCULAR HEMOGLOBIN 28.7 pg (27.0-33.0); MEAN CORPUSCULAR HGB CONC 29.6 g/dL (32.0-36.0); MEAN CORPUSCULAR VOLUME 97.2 fL (79-99); PLATELET COUNT (AUTO) 356 K/uL (130-400); RED BLOOD CELL COUNT(AUTO) 2.82 MIL/uL (4.50-6.20); RED CELL DISTRIBUTION WIDTH 19.7 % (11.0-15.5); WHITE BLOOD COUNT (AUTO) 18.1 K/uL (4.8-10.8)
[2020-05-07 04:28] LABS: CREATININE 3.9 mg/dL (0.5-1.5); POTASSIUM 5.2 mmol/L (3.5-5.1)
[2020-05-07 04:32] LABS: BAND NEUTROPHILS % (MANUAL) 9 % (0-2); EOSINOPHILS % (MANUAL) 2 % (1-6); LYMPHOCYTES % (MANUAL) 5 % (22-44); MAN.DIFF COMMENT-IMPRESSION MANUAL DIFFERENTIAL; MONOCYTES % (MANUAL) 3 % (2-9); PLATELET MORPHOLOGY COMMENT ADEQUATE; SEGMENTED NEUTROPHILS % 81 % (40-70)
[2020-05-07] MEDS: FUROSEMIDE 20MG VIAL IV SCH ×2 (05:44→17:56)
[2020-05-07] MEDS: INSULIN HUMULIN R 100 UNIT/ML 3ML SQ SCH ×4 (05:59→17:57)
[2020-05-07] MEDS: RASAGILINE MESYLATE 1 MG PO SCH (07:30)
[2020-05-07] MEDS: METOPROLOL TARTRATE 25 MG TAB PO SCH ×2 (07:54→20:36)
[2020-05-07] MEDS: NEOMYCIN SULFATE 500 MG TAB PO SCH ×3 (08:57→21:08)
[2020-05-07] MEDS: HONEY 1 APPL/ML TUBE TP SCH ×2 (08:57→21:08)
[2020-05-07] MEDS: FLUCONAZOLE 200 MG/NS 100 ML 100 ML IV SCH (08:57)
[2020-05-07] MEDS: AMIODARONE 200 MG TABLET PO SCH ×2 (08:57→21:08)
[2020-05-07] MEDS: TRYPSIN/BALSAM PERU/CASTOR OIL OINT 60GM TUBE TP SCH (08:58)
[2020-05-07] MEDS: METOCLOPRAMIDE 10 MG/2 ML VIAL IVP SCH ×2 (17:56→22:22)
[2020-05-07] MEDS: DEXTROSE 5 %-0.45 % NACL 1,000 ML IV SCH (17:57)
[2020-05-07] MEDS: INSULIN GLARGINE 100 UNITS/ML 10 ML VIAL SQ SCH (20:37)
[2020-05-08] VITALS (18 sets, daily range): BP systolic 61–127; BP diastolic 24–77
[2020-05-08] MEDS: NOREPINEPHRINE BITARTRATE 16 MG in 0.9% NACL 250ML 250 ML IV SCH ×3 (02:18→08:44)
[2020-05-08] MEDS: DEXTROSE 50%-WATER 25 GM/50 ML VIAL IV SCH (02:19)
[2020-05-08] MEDS: INSULIN HUMULIN R 100 UNIT/ML 3ML IV SCH (02:19)
[2020-05-08] MEDS: FUROSEMIDE 20MG VIAL IV SCH (05:45)
[2020-05-08 05:55] LABS: BASOPHILS % (AUTO) 0.4 % (0.0-5.0); HEMATOCRIT 28.4 % (42-54); LYMPHOCYTES % (AUTO) 1.8 % (21.0-51.0); MEAN CORPUSCULAR HEMOGLOBIN 28.1 pg (27.0-33.0); MEAN CORPUSCULAR HGB CONC 28.5 g/dL (32.0-36.0); MEAN CORPUSCULAR VOLUME 98.6 fL (79-99); MONOCYTES % (AUTO) 7.6 % (3.0-13.0); NEUTROPHILS % (AUTO) 88.3 % (40.0-77.0); NUCLEATED RED BLOOD CELLS 2.5 % (0.0-0.19); PLATELET COUNT (AUTO) 436 K/uL (130-400); RED BLOOD CELL COUNT(AUTO) 2.88 MIL/uL (4.50-6.20); RED CELL DISTRIBUTION WIDTH 19.5 % (11.0-15.5); WHITE BLOOD COUNT (AUTO) 21.7 K/uL (4.8-10.8)
[2020-05-08] MEDS: INSULIN HUMULIN R 100 UNIT/ML 3ML SQ SCH ×3 (06:00→12:00)
[2020-05-08 06:11] LABS: INR 1.18 (0.85-1.15); PROTHROMBIN TIME 12.7 SEC (9.6-11.6)
[2020-05-08 06:19] LABS: ALBUMIN 1.2 g/dL (3.5-5.0); BILIRUBIN,DIRECT 0.4 mg/dL (0.0-0.3); BILIRUBIN,TOTAL 0.6 mg/dL (0.2-1.0); CREATININE 4.5 mg/dL (0.5-1.5); POTASSIUM 5.6 mmol/L (3.5-5.1); TOTAL PROTEIN, SERUM 5.2 g/dL (6.0-8.3)
[2020-05-08] MEDS: RASAGILINE MESYLATE 1 MG PO SCH (07:30)
[2020-05-08] MEDS: METOCLOPRAMIDE 10 MG/2 ML VIAL IVP SCH (07:30)
[2020-05-08] MEDS: NEOMYCIN SULFATE 500 MG TAB PO SCH ×2 (08:42→15:12)
[2020-05-08] MEDS: AMIODARONE 200 MG TABLET PO SCH (08:42)
[2020-05-08] MEDS: FLUCONAZOLE 200 MG/NS 100 ML 100 ML IV SCH (08:43)
[2020-05-08] MEDS: METOPROLOL TARTRATE 25 MG TAB PO SCH (09:00)
[2020-05-08] MEDS: MILRINONE-D5W 20 MG/100 ML 100 ML IV SCH (09:16)
[2020-05-08] MEDS: HONEY 1 APPL/ML TUBE TP SCH (09:17)
[2020-05-08] MEDS: TRYPSIN/BALSAM PERU/CASTOR OIL OINT 60GM TUBE TP SCH (09:17)
[2020-05-08] MEDS ORDERED: KAYEXALATE 15GM/60ML GT SCH (10:48)
[2020-05-08] MEDS ORDERED: DEXTROSE 50%-WATER 50 ML DISP.SYRIN IV ONE (11:15)
[2020-05-08] MEDS: DEXTROSE 5 %-0.45 % NACL 1,000 ML IV SCH (11:49)
[2020-05-08] MEDS ORDERED: LORAZEPAM 2 MG/ML 1 ML VIAL IVP PRN ×2 (14:45)
[2020-05-08] MEDS ORDERED: MORPHINE 5 MG/ML VIAL (5MG OR GREATER DOSE) IV PRN (14:45)
[2020-05-08] MEDS: LORAZEPAM 2 MG/ML 1 ML VIAL ONE ×2 (14:53→15:10)
[2020-05-08] MEDS: HYDROMORPHONE 0.5 MG SYG (0.5MG/0.5ML) IVP PRN ×2 (14:55→15:12)
[2020-05-08] MEDS: MORPHINE 5 MG/ML VIAL (5MG OR GREATER DOSE) ONE ×2 (14:55→15:10)
== END 2020-05-08 15:45 | disposition expired | DRG 4 ==
LOC: EDH 17:21 → EDHIP 19:45 → 2AH 04-02 04:21 → 2BH 04-06 20:10
PROVIDERS: ADMIT Internal Medicine; ATTEND Internal Medicine
PROC: 5A09357 Assistance with Respiratory Ventilation, Less than 24 Consecutive Hours, Continuous Positive Airway Pressure (ICD-10-PCS; 2020-04-02)
PROC: 5A09357 Assistance with Respiratory Ventilation, Less than 24 Consecutive Hours, Continuous Positive Airway Pressure (ICD-10-PCS; 2020-04-03)
PROC: 5A09357 Assistance with Respiratory Ventilation, Less than 24 Consecutive Hours, Continuous Positive Airway Pressure (ICD-10-PCS; 2020-04-04)
PROC: 5A1955Z Respiratory Ventilation, Greater than 96 Consecutive Hours (ICD-10-PCS; principal; 2020-04-06)
PROC: 0BH17EZ Insertion of Endotracheal Airway into Trachea, Via Natural or Artificial Opening (ICD-10-PCS; 2020-04-06)
PROC: 02H633Z Insertion of Infusion Device into Right Atrium, Percutaneous Approach (ICD-10-PCS; 2020-04-07)
PROC: 30233N1 Transfusion of Nonautologous Red Blood Cells into Peripheral Vein, Percutaneous Approach (ICD-10-PCS; 2020-04-13)
PROC: 0DH63UZ Insertion of Feeding Device into Stomach, Percutaneous Approach (ICD-10-PCS; 2020-05-02)
PROC: 0B113F4 Bypass Trachea to Cutaneous with Tracheostomy Device, Percutaneous Approach (ICD-10-PCS; 2020-05-02 11:55)
DX: A41.9 Sepsis, unspecified organism (principal); U07.1 COVID-19; I50.23 Acute on chronic systolic (congestive) heart failure; I21.A1 Myocardial infarction type 2; J12.82 Pneumonia due to coronavirus disease 2019; J80 Acute respiratory distress syndrome; N17.0 Acute kidney failure with tubular necrosis; G82.50 Quadriplegia, unspecified; G92 Toxic encephalopathy; J15.212 Pneumonia due to Methicillin resistant Staphylococcus aureus; R65.21 Severe sepsis with septic shock; J90 Pleural effusion, not elsewhere classified; D68.59 Other primary thrombophilia; E87.2 Acidosis; E46 Unspecified protein-calorie malnutrition; E87.0 Hyperosmolality and hypernatremia; E87.1 Hypo-osmolality and hyponatremia; G62.81 Critical illness polyneuropathy; I13.0 Hypertensive heart and chronic kidney disease with heart failure and stage 1 through stage 4 chronic kidney disease, or unspecified chronic kidney disease; L97.919 Non-pressure chronic ulcer of unspecified part of right lower leg with unspecified severity; L89.150 Pressure ulcer of sacral region, unstageable; L89.626 Pressure-induced deep tissue damage of left heel; L89.616 Pressure-induced deep tissue damage of right heel; I46.9 Cardiac arrest, cause unspecified; R57.0 Cardiogenic shock; I48.0 Paroxysmal atrial fibrillation; G20 Parkinson's disease; I25.10 Atherosclerotic heart disease of native coronary artery without angina pectoris; D69.6 Thrombocytopenia, unspecified; E78.5 Hyperlipidemia, unspecified; I25.5 Ischemic cardiomyopathy; D64.9 Anemia, unspecified; E11.22 Type 2 diabetes mellitus with diabetic chronic kidney disease; E11.65 Type 2 diabetes mellitus with hyperglycemia; E87.5 Hyperkalemia; E87.6 Hypokalemia; I25.2 Old myocardial infarction; K72.90 Hepatic failure, unspecified without coma; K76.0 Fatty (change of) liver, not elsewhere classified; L89.95 Pressure ulcer of unspecified site, unstageable; N18.9 Chronic kidney disease, unspecified; N32.0 Bladder-neck obstruction; R13.12 Dysphagia, oropharyngeal phase; R62.7 Adult failure to thrive; Z51.5 Encounter for palliative care; Z66 Do not resuscitate; Z74.01 Bed confinement status; Z79.01 Long term (current) use of anticoagulants; Z79.82 Long term (current) use of aspirin; Z82.49 Family history of ischemic heart disease and other diseases of the circulatory system; Z83.3 Family history of diabetes mellitus; Z85.46 Personal history of malignant neoplasm of prostate; Z87.01 Personal history of pneumonia (recurrent); Z93.0 Tracheostomy status; Z93.1 Gastrostomy status; Z95.1 Presence of aortocoronary bypass graft; D72.829 Elevated white blood cell count, unspecified; E87.8 Other disorders of electrolyte and fluid balance, not elsewhere classified; I95.9 Hypotension, unspecified
CPT/HCPCS: 31500; 36415; 36430; 36600; 43246; 70450; 71045; 71250; 74176; 76700; 76705; 80048; 80053; 80061; 80074; 80076; 80202; 81001; 82140; 82150; 82248; 82270; 82435; 82550; 82728; 82803; 82947; 82948; 83010; 83540; 83550; 83605; 83615; 83690; 83735; 83874; 83880; 84100; 84132; 84145; 84295; 84484; 84550; 85014; 85018; 85025; 85027; 85378; 85610; 85651; 85730; 86140; 86850; 86900; 86901; 86923; 87040; 87071; 87088; 87205; 92950; 93005; 93306; 93356; 93971; 94002; 94003; 94660; A4330; A4606; A6250; C1751; C1894; G0378; J0282; J0456; J0610; J0696; J0885; J1100; J1170; J1450; J1650; J1815; J1940; J1956; J2020; J2060; J2185; J2260; J2270; J2370; J2704; J2720; J2765; J3010; J3370; J3480; J3490; J7030; J7042; J7050; J7060; J7070; J8540; P9016; P9046